=== PATIENT | female | born 1980 | race Caucasian/White ===

== ENCOUNTER 2019-10-13 14:16 | Emergency (ER) | payer OTHER ==
--- NOTE | 2019-10-13 14:20 | ERPHSYRPT ---
- History of Present Illness Time Seen by Provider: 10/13/19 14:20 Source: patient, police Exam Limitations: no limitations Physician History: This is a 39-year-old white female who presents to the emergency department by police department after patient took somewhere between 5 and 10 effects or medications. They were medications of her significant other. Patient was attempting suicide because she is had enough of arguing with her significant other. However upon arrival here she said that she just wants to get away from it all. Patient does consume marijuana nearly on a daily basis. She denies alcohol and other types of medication at this time. Patient states that she has not tried to kill herself in the past. Patient took this medication approximately half hour prior to her arrival here. States she is not homicidal. 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 related to: spouse, significant other Suicidal thoughts: attempt, ingestion Associated Symptoms: depressed, frustrated, ingestion Previous symptoms: no prior history Allergies/Adverse Reactions: No Known Drug Allergies Allergy (Verified 10/13/19 14:29) Home Medications: Venlafaxine HCl 37.5 mg [Effexor 37.5 mg] 1 tab PO DAILY 10/13/19 [History ] Hx Tetanus, Diphtheria Vaccination/Date Given: No Hx Influenza Vaccination/Date Given: Yes Hx Pneumococcal Vaccination/Date Given: No Travel Risk - International Travel Have you traveled outside of the country in past 3 weeks: No Have you or anyone close to you been diagnosed with or: No Do your reside in a community with a known COVID-19 case?: Yes If Yes where:: [place] - Coronavirus Screening Has patient experienced Coronavirus symptoms: No - Past Medical History Pertinent Past Medical History: Yes Neurological History: No Pertinent History ENT History: No Pertinent History Cardiac History: No Pertinent History Respiratory History: No Pertinent History Endocrine Medical History: No Pertinent History Musculoskeletal History: No Pertinent History GI Medical History: No Pertinent History History: No Pertinent History Psycho-Social History: Anxiety, Depression Female Reproductive Disorders: No Pertinent History Other Medical History: gestational diabetes, anemia - Past Surgical History Past Surgical History: Yes Neuro Surgical History: No Pertinent History Cardiac: No Pertinent History Respiratory: No Pertinent History Gastrointestinal: Appendectomy Genitourinary: No Pertinent History Musculoskeletal: No Pertinent History Female Surgical History: No Pertinent History - Social History Smoking Status: Current every day smoker How long have you smoked: 7year Exposure to second hand smoke: No Drug Use: none Patient Lives Alone: No - Review of Systems Constitutional: No Symptoms Eyes: No Symptoms Ears, Nose, & Throat: No Symptoms Respiratory: No Symptoms Cardiac: No Symptoms Abdominal/Gastrointestinal: No Symptoms Genitourinary Symptoms: No Symptoms Musculoskeletal: No Symptoms Skin: No Symptoms Neurological: No Symptoms Psychological: Anxiety, Depression, Suicidal Ideations Endocrine: No Symptoms Hematologic/Lymphatic: No Symptoms Immunological/Allergic: No Symptoms All Other Systems: Reviewed and Negative - Nursing Vital Signs Nursing Vital Signs: Initial Vital Signs Pulse Rate 112 H 10/13/19 14:30 Respiratory Rate 18 10/13/19 14:30 Blood Pressure 135/89 10/13/19 14:30 O2 Sat by Pulse Oximetry 99 10/13/19 14:30 Pain Scale Pain Intensity 0 - Physical Exam General Appearance: mild distress, alert, anxiety Eyes, Ears, Nose, Throat Exam: normal ENT inspection, moist mucous membranes Neck Exam: normal inspection, non-tender, supple, full range of motion Respiratory Exam: normal breath sounds, lungs clear, airway intact, No chest tenderness, No respiratory distress Cardiovascular Exam: tachycardia Gastrointestinal/Abdominal Exam: soft, normal bowel sounds, No tenderness, No guarding Extremities Exam: normal inspection, normal range of motion, evidence of injury Current Suicidality: denies suicide plan 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, 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, oriented x 3, anxious Appearance: appropriate appearance, appropriate insight Behavior/Eye Contact/Speech: alert & cooperative, good eye contact Thoughts/Hallucinations: normal thought pattern, no apparent hallucination Skin Exam: normal color, warm, dry SpO2 Interpretation: normal O2 Delivery: Room Air - Course Nursing assessment & vital signs reviewed: Yes EKG Interpreted by Me: RATE (99), Sinus Rhythm, NORMAL AXIS, NORMAL INTERVALS, NORMAL QRS, Other (No comparison EKG) Ordered Tests: Active Orders 24 hr Category Date Time Status Clean Catch Urine Specimen STAT Care 10/13/19 14:37 Active EKG-ER Only STAT Care 10/13/19 14:37 Active Pulse Oximetry (ED) STAT Care 10/13/19 14:37 Active Psychiatric Consult STAT Cons 10/13/19 14:37 Active Tele-Health Consult ROUTINE Cons 10/13/19 14:37 Active ACETAMINOPHEN Stat Lab 10/13/19 14:50 Completed CBC W DIFF Stat Lab 10/13/19 14:50 Completed CMP Stat Lab 10/13/19 14:50 Completed ETHYL ALCOHOL Stat Lab 10/13/19 14:50 Completed HCG,QUALITATIVE URINE Stat Lab 10/13/19 15:00 Completed SALICYLATE Stat Lab 10/13/19 14:50 Completed UA W/RFX UR CULTURE Stat Lab 10/13/19 15:00 Completed Urine Triage Profile Stat Lab 10/13/19 15:00 Completed Medication Summary Discontinued Medications Generic Name Dose Route Start Last Admin Trade Name Kaydenq PRN Reason Stop Dose Admin Ondansetron HCl 4 mg 10/13/19 14:36 10/13/19 15:10 Zofran Odt 4 Mg PO 10/13/19 14:37 4 mg STAT ONE Administration Ondansetron HCl Confirm 10/13/19 15:04 Zofran Odt 4 Mg Administered 10/13/19 15:05 Dose 4 mg .ROUTE .STPivotstream-MED ONE Lab/Rad Data: Laboratory Result Diagrams 10/13/19 14:50 10/13/19 14:50 Laboratory Results 10/13/19 10/13/19 10/13/19 Range/Units 15:00 15:00 15:00 WBC (4.0-10.5) K/mm3 RBC (4.1-5.4) M/mm3 Hgb (12.0-16.0) gm/dl Hct (35-47) % MCV (78-100) fl MCH (26-32) pg MCHC (32-36) g/dl RDW (11.5-14.0) % Plt Count (150-450) K/mm3 MPV (7.5-11.0) fl Gran % (36.0-66.0) % Eos # (Auto) (0-0.5) Absolute Lymphs (auto) (1.0-4.6) Absolute Monos (auto) (0.0-1.3) Lymphocytes % (24.0-44.0) % Monocytes % (0.0-12.0) % Eosinophils % (0.00-5.0) % Basophils % (0.0-0.4) % Absolute Granulocytes (1.4-6.9) Basophils # (0-0.4) Sodium (137-145) mmol/L Potassium (3.5-5.1) mmol/L Chloride (98-107) mmol/L Carbon Dioxide (22-30) mmol/L Anion Gap (5-15) MEQ/L BUN (7-17) mg/dL Creatinine (0.52-1.04) mg/dL Estimated GFR ML/MIN Glucose (74-106) mg/dL Calcium (8.4-10.2) mg/dL Total Bilirubin (0.2-1.3) mg/dL AST (14-36) U/L ALT (0-35) U/L Alkaline Phosphatase (38-126) U/L Serum Total Protein (6.3-8.2) g/dL Albumin (3.5-5.0) g/dL Urine Color YELLOW (YELLOW) Urine Appearance SLIGHTLY CLOUDY (CLEAR) Urine pH 6.0 (5-6) Ur Specific [place] 1.024 (1.005-1.025) Urine Protein 30 (Negative) Urine Ketones NEGATIVE (NEGATIVE) Urine Blood NEGATIVE (0-5) Que/ul Urine Nitrite NEGATIVE (NEGATIVE) Urine Bilirubin NEGATIVE (NEGATIVE) Urine Urobilinogen NEGATIVE (0-1) mg/dL Ur Leukocyte Esterase NEGATIVE (NEGATIVE) Urine WBC (Auto) 0-2 (0-5) /HPF Urine RBC (Auto) NONE (0-2) /HPF U Epithel Cells (Auto) RARE (FEW) /HPF Urine Bacteria (Auto) NONE (NEGATIVE) /HPF Urine Mucus (Auto) MODERATE (NEGATIVE) /HPF Urine Culture Reflexed NO (NO) Urine Glucose NEGATIVE (NEGATIVE) mg/dL Urine HCG, Qual NEGATIVE (Negative) Salicylates (2-20) mg/dL Urine Opiates Level NEGATIVE (NEGATIVE) Ur Methadone NEGATIVE (NEGATIVE) Acetaminophen (10-30) ug/ml Urine Barbiturates NEGATIVE (NEGATIVE) Ur Phencyclidine (PCP) NEGATIVE (NEGATIVE) Urine Amphetamine POSITIVE (NEGATIVE) U Benzodiazepine Level POSITIVE (NEGATIVE) Urine Cocaine NEGATIVE (NEGATIVE) Urine Marijuana (THC) POSITIVE (NEGATIVE) Ethyl Alcohol (0-10) mg/dL 10/13/19 10/13/19 Range/Units 14:50 14:50 WBC 8.6 (4.0-10.5) K/mm3 RBC 3.55 L (4.1-5.4) M/mm3 Hgb 11.6 L (12.0-16.0) gm/dl Hct 34.8 L (35-47) % MCV 98.0 (78-100) fl MCH 32.7 H (26-32) pg MCHC 33.3 (32-36) g/dl RDW 12.6 (11.5-14.0) % Plt Count 394 (150-450) K/mm3 MPV 9.0 (7.5-11.0) fl Gran % 65.7 (36.0-66.0) % Eos # (Auto) 0.05 (0-0.5) Absolute Lymphs (auto) 2.07 (1.0-4.6) Absolute Monos (auto) 0.75 (0.0-1.3) Lymphocytes % 24.2 (24.0-44.0) % Monocytes % 8.8 (0.0-12.0) % Eosinophils % 0.6 (0.00-5.0) % Basophils % 0.7 (0.0-0.4) % Absolute Granulocytes 5.64 (1.4-6.9) Basophils # 0.06 (0-0.4) Sodium 141 (137-145) mmol/L Potassium 3.6 (3.5-5.1) mmol/L Chloride 109 H (98-107) mmol/L Carbon Dioxide 25 (22-30) mmol/L Anion Gap 10.0 (5-15) MEQ/L BUN 16 (7-17) mg/dL Creatinine 0.62 (0.52-1.04) mg/dL Estimated GFR > 60.0 ML/MIN Glucose 95 (74-106) mg/dL Calcium 9.5 (8.4-10.2) mg/dL Total Bilirubin 0.70 (0.2-1.3) mg/dL AST 29 (14-36) U/L ALT 18 (0-35) U/L Alkaline Phosphatase 37 L (38-126) U/L Serum Total Protein 7.5 (6.3-8.2) g/dL Albumin 4.5 (3.5-5.0) g/dL Urine Color (YELLOW) Urine Appearance (CLEAR) Urine pH (5-6) Ur Specific [place] (1.005-1.025) Urine Protein (Negative) Urine Ketones (NEGATIVE) Urine Blood (0-5) Que/ul Urine Nitrite (NEGATIVE) Urine Bilirubin (NEGATIVE) Urine Urobilinogen (0-1) mg/dL Ur Leukocyte Esterase (NEGATIVE) Urine WBC (Auto) (0-5) /HPF Urine RBC (Auto) (0-2) /HPF U Epithel Cells (Auto) (FEW) /HPF Urine Bacteria (Auto) (NEGATIVE) /HPF Urine Mucus (Auto) (NEGATIVE) /HPF Urine Culture Reflexed (NO) Urine Glucose (NEGATIVE) mg/dL Urine HCG, Qual (Negative) Salicylates < 1.0 L (2-20) mg/dL Urine Opiates Level (NEGATIVE) Ur Methadone (NEGATIVE) Acetaminophen < 10 L (10-30) ug/ml Urine Barbiturates (NEGATIVE) Ur Phencyclidine (PCP) (NEGATIVE) Urine Amphetamine (NEGATIVE) U Benzodiazepine Level (NEGATIVE) Urine Cocaine (NEGATIVE) Urine Marijuana (THC) (NEGATIVE) Ethyl Alcohol < 10 (0-10) mg/dL - Progress Progress: unchanged Progress Note: 10/13/19 15:25 we Did call the poison control center. We are following their recommendations. Patient needs to be observed for at least 8 hours from the time of her ingestion. The patient is being monitored. We will be consulting an inpatient psychiatric facility for further recommendations. 10/13/19 15:43 10/13/19 19:07 This pt was eval by [facility]. they accept her with the stipulation of emergency halfway. pt will be observed here until 10pm. [facility] 10/13/19 22:08 Have observed the patient for 8 hours from the time of ingestion. She has been hemodynamically stable and neurologically intact throughout her stay. She has been psychologically appropriate. Counseled pt/family regarding: lab results, diagnosis, need for follow-up, rad results - Departure Departure Disposition: Transfer Clinical Impression: Suicide attempt Condition: Stable Critical Care Time: No Referrals: TAVARES LYNN [Primary Care Provider] -
[2019-10-13] MEDS ORDERED: ZOFRAN ODT 4 MG PO ONE (14:36)
[2019-10-13] MEDS ORDERED: ZOFRAN ODT 4 MG ONE (15:04)
[2019-10-13 15:07] LABS: Absolute Neutrophil Ct (ANC) 5.64 (1.4-6.9); BASOPHIL % 0.7 % (0.0-0.4); Basophil (Absolute #) 0.06 (0-0.4); Eosinophil % 0.6 % (0.00-5.0); Eosinophil (Absolute #) 0.05 (0-0.5); Hematocrit 34.8 % (35-47); Hemoglobin 11.6 gm/dl (12.0-16.0); Lymphocyte (Absolute #) 2.07 (1.0-4.6); Lymphocytes % 24.2 % (24.0-44.0); Mean Corpuscular Hemoglobin 32.7 pg (26-32); Mean Corpuscular Hgb Concent. 33.3 g/dl (32-36); Monocyte (Absolute #) 0.75 (0.0-1.3); Monocytes % 8.8 % (0.0-12.0); Neutrophil % 65.7 % (36.0-66.0); Platelet Count 394 K/mm3 (150-450); Red Blood Count 3.55 M/mm3 (4.1-5.4); Red Cell Distribution Width 12.6 % (11.5-14.0); White Blood Count 8.6 K/mm3 (4.0-10.5)
[2019-10-13 15:17] LABS: Appearance SLIGHTLY CLOUDY (CLEAR); Bilirubin NEGATIVE (NEGATIVE); Blood NEGATIVE Ery/ul (0-5); Epithelial Cells RARE /HPF (FEW); Glucose NEGATIVE (NEGATIVE); Ketones NEGATIVE (NEGATIVE); Leukocyte Esterase NEGATIVE (NEGATIVE); Mucus MODERATE /HPF (NEGATIVE); Nitrite NEGATIVE (NEGATIVE); Protein,Urine Dip 30 (Negative); Specific Gravity 1.024 (1.005-1.025); Urobilinogen NEGATIVE mg/dL (0-1); WBC 0-2 /HPF (0-5)
[2019-10-13 15:20] LABS: ALBUMIN 4.5 g/dL (3.5-5.0); ALKALINE PHOSPHATASE 37 U/L (38-126); BLOOD UREA NITROGEN 16 mg/dL (7-17); CHLORIDE 109 mmol/L (98-107); Calcium 9.5 mg/dL (8.4-10.2); Carbon Dioxide 25 mmol/L (22-30); Creatinine 1 0.62 mg/dL (0.52-1.04); Glucose 95 mg/dL (74-106); Potassium 3.6 mmol/L (3.5-5.1); SGOT/AST 29 U/L (14-36); SGPT/ALT 18 U/L (0-35); SODIUM 141 mmol/L (137-145); Total Protein 7.5 g/dL (6.3-8.2)
[2019-10-13 15:21] LABS: ACETAMINOPHEN < 10 ug/ml (10-30); ETHYL ALCOHOL < 10 mg/dL (0-10); SALICYLATE < 1.0 mg/dL (2-20)
[2019-10-13 15:29] LABS: Barbiturate,Urine NEGATIVE (NEGATIVE); Benzodiazepine,Urine POSITIVE (NEGATIVE); Cocaine,Urine NEGATIVE (NEGATIVE); Methadone,Urine NEGATIVE (NEGATIVE); Opiate,Urine NEGATIVE (NEGATIVE); PCP,Urine NEGATIVE (NEGATIVE); THC,Urine POSITIVE (NEGATIVE)
[2019-10-13 16:11] LABS: Amphetamine,Urine POSITIVE (NEGATIVE)
[2019-10-13 22:18] VITALS: BP 146/85; PULSE 91; O2SAT 98
== END 2019-10-13 22:37 ==
LOC: ED 14:16
DX: T50.992A Poisoning by other drugs, medicaments and biological substances, intentional self-harm, initial encounter (principal); F41.9 Anxiety disorder, unspecified; F32.9 Major depressive disorder, single episode, unspecified
CPT/HCPCS: 36415; 80053; 80307; 81001; 84703; 85025; 90791; 93005; 94760; 99285; G0480; G0481; Q3014; Q0162

== ENCOUNTER 2019-10-24 21:44 | Emergency (ER) | payer OTHER ==
[2019-10-24] MEDS ORDERED: Adacel Vial IM ONE ×2 (22:17→22:25)
[2019-10-24] MEDS ORDERED: BACIGUENT PACKET TP ONE (22:55)
[2019-10-24] MEDS ORDERED: BACIGUENT PACKET ONE (22:55)
[2019-10-24 23:03] VITALS: BP 113/70; PULSE 72; O2SAT 99
--- NOTE | 2019-10-24 23:36 | ERPHSYRPT ---
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 bleeding was controlled on arrival to ED, once rag removed, lac began to bleed again. pressure applied. denies pain resting, but pain to index finger and thumb with movement. cap refil < 3 sec, no loss sensation, pain with ROM. A&Ox3. ambulatory to room. Physician History: pt cut right hand on broken potery and could not get bleeding stopped. no other reported injuries and does not feel any FB in her wound or believe any remains. unable to fully extend right index since the accident and is also painful passive ext of this digit. Timing/Duration: today Quality: painful Severity: moderate Location: hands Possible Causes: other (lac) Associated Symptoms: denies symptoms Allergies/Adverse Reactions: No Known Drug Allergies Allergy (Verified 10/13/19 14:29) Home Medications: Venlafaxine HCl 37.5 mg [Effexor 37.5 mg] 1 tab PO DAILY 10/13/19 [History ] Hx Tetanus, Diphtheria Vaccination/Date Given: No Hx Influenza Vaccination/Date Given: No Hx Pneumococcal Vaccination/Date Given: No Travel Risk - International Travel Have you traveled outside of the country in past 3 weeks: No Have you or anyone close to you been diagnosed with or: No Do your reside in a community with a known COVID-19 case?: Yes If Yes where:: [place] - Coronavirus Screening Has patient experienced Coronavirus symptoms: No - Review of Systems Constitutional: No Fever, No Chills Eyes: No Symptoms Ears, Nose, & Throat: No Symptoms Respiratory: No Cough, No Dyspnea Cardiac: No Chest Pain, No Edema, No Syncope Abdominal/Gastrointestinal: No Abdominal Pain, No Nausea, No Vomiting, No Diarrhea Genitourinary Symptoms: No Dysuria Musculoskeletal: No Back Pain, No Neck Pain Skin: Other (lac right palm), No Rash Neurological: No Dizziness, No Focal Weakness, No Sensory Changes Psychological: No Symptoms Endocrine: No Symptoms Hematologic/Lymphatic: No Symptoms Immunological/Allergic: No Symptoms All Other Systems: Reviewed and Negative - Past Medical History Pertinent Past Medical History: Yes Neurological History: No Pertinent History ENT History: No Pertinent History Cardiac History: No Pertinent History Respiratory History: No Pertinent History Endocrine Medical History: No Pertinent History Musculoskeletal History: No Pertinent History GI Medical History: No Pertinent History History: No Pertinent History Psycho-Social History: Anxiety, Depression Female Reproductive Disorders: No Pertinent History Other Medical History: gestational diabetes, anemia - Past Surgical History Past Surgical History: Yes Neuro Surgical History: No Pertinent History Cardiac: No Pertinent History Respiratory: No Pertinent History Gastrointestinal: Appendectomy, Cholecystectomy Genitourinary: No Pertinent History Musculoskeletal: No Pertinent History Female Surgical History: No Pertinent History - Social History Smoking Status: Current every day smoker How long have you smoked: 7year Exposure to second hand smoke: No Drug Use: marijuana Patient Lives Alone: No - Female History Hx Now: No - Nursing Vital Signs Nursing Vital Signs: Initial Vital Signs Temperature 98.0 F 10/24/19 22:01 Pulse Rate 86 10/24/19 22:01 Respiratory Rate 20 10/24/19 22:01 Blood Pressure 125/80 10/24/19 22:01 O2 Sat by Pulse Oximetry 100 10/24/19 22:01 Pain Scale Pain Intensity 5 - Physical Exam General Appearance: no apparent distress, alert Eye Exam: PERRL/EOMI, eyes nml inspection Ears, Nose, Throat Exam: normal ENT inspection, pharynx normal, moist mucous membranes Neck Exam: normal inspection, non-tender, supple, full range of motion Respiratory Exam: normal breath sounds, lungs clear, No respiratory distress Cardiovascular Exam: regular rate/rhythm, normal heart sounds Gastrointestinal/Abdomen Exam: soft, mass, No tenderness Pelvic Exam: deferred Rectal Exam: deferred Back Exam: normal inspection, normal range of motion, No CVA tenderness, No vertebral tenderness Extremity Exam: normal inspection, normal range of motion, lacerations (right palm), limited range of motion Neurologic Exam: alert, oriented x 3, cooperative, normal mood/affect, sensation nml, No motor deficits Skin Exam: normal color, warm, dry SpO2: 99 Procedures - Laceration/Wound Repair Right Hand Wound Location: Right, hand Wound Length (cm): 3 Wound's Depth, Shape: into muscle, irregular Wound Explored: no foreign body noted Irrigated: Yes Hibiclens Prep: Yes Anesthesia: local, 1% Lidocaine Volume Anesthetic (ccs): 3 Wound Debrided: moderate Wound Repaired With: sutures Suture Size/Type: 3-0, nylon Layer Closure?: No Sterile Dressing Applied?: Yes Splint Applied?: No Sling Applied?: No Ordered Tests: Active Orders 24 hr Category Date Time Status Isolation, Initiate & Maintain Q12H Care 10/24/19 22:12 Active Sutures STAT Care 10/24/19 22:17 Active Wound Care STAT Care 10/24/19 22:45 Active HAND (MINIMUM 3 VIEWS) Stat Exams 10/24/19 22:54 Taken Medication Summary Discontinued Medications Generic Name Dose Route Start Last Admin Trade Name Siomara PRN Reason Stop Dose Admin Bacitracin Zinc 0.9 gm 10/24/19 22:55 10/24/19 22:55 Baciguent Packet TP 10/24/19 22:56 0.9 gm STAT ONE Administration Bacitracin Zinc Confirm 10/24/19 22:55 Baciguent Packet Administered 10/24/19 22:56 Dose 1 gm .ROUTE .STK-MED ONE Diphtheria/Tetanus/Acell Pertussis 0.5 ml 10/24/19 22:17 10/24/19 22:27 Adacel Vial IM 10/24/19 22:18 0.5 ml .ONCE ONE Administration Diphtheria/Tetanus/Acell Pertussis Confirm 10/24/19 22:25 Adacel Vial Administered 10/24/19 22:26 Dose 0.5 ml IM .STK-MED ONE - Progress Progress: improved, re-examined Progress Note: 10/24/19 23:37 pt was advised that tendon injury was likely of wilder index flexor tendon due to trouble straightening this and therefore need to see hand surgeon. also she is advised that an undetected FB could still exist and require removal Counseled pt/family regarding: diagnosis, need for follow-up, rad results - Departure Departure Disposition: Home Clinical Impression: Laceration of right hand involving tendon Condition: Good Critical Care Time: No Referrals: TORITO CARDENAS [Primary Care Provider] - Instructions: Wound Care (DC), Laceration Repair With Stitches (DC) Additional Instructions: it is very important to followup with a hand surgeon since there is very likely an injury to a tendon moving your finger; there could also be a remaining peice of the broken material even though we did not detect any on x-ray or exam - but might be found in surgical exploration if that is indicated especially for the tendon injury. return meantime if any concerns. Prescriptions: Cephalexin Mh 500 mg [Keflex 500 mg] 500 mg PO TID 5 Days #15 capsule Mupirocin [Bactroban OINTMENT] 22 gm TP BID #1 tube
--- NOTE | 2019-10-25 08:07 | XRAY ---
Indication: Laceration. Comparison: None 3 view right hand demonstrates old 5th metacarpal fracture. No other bony, articular, or soft tissue abnormalities.
== END 2019-10-24 23:59 | disposition home or self-care (01) ==
LOC: ED 21:44
DX: S61.411A Laceration without foreign body of right hand, initial encounter (principal); W26.8XXA Contact with other sharp object(s), not elsewhere classified, initial encounter; Y93.89 Activity, other specified; Y92.89 Other specified places as the place of occurrence of the external cause; F41.9 Anxiety disorder, unspecified; F32.9 Major depressive disorder, single episode, unspecified
CPT/HCPCS: 12002; 73130; 90471; 90715; 99284; A9270-GY

== ENCOUNTER 2020-01-18 19:27 | Emergency (ER) | payer OTHER ==
--- NOTE | 2020-01-18 19:46 | ERPHSYRPT ---
- History of Present Illness Time Seen by Provider: 01/18/20 19:40 Source: patient Exam Limitations: no limitations Physician History: Patient is a 39-year-old female. Patient states that she went to her friend's house to visit. There house dog ran up to our patient and bit her on her left forearm. Incident occurred just prior to arrival. No other injuries reported. Patient does not know the vaccination status of the dog. Patient states that she left the household immediately after she was bitten. Patient made a police report. Pain described as an ache that is well localized. No radiation. Patient denies foreign body sensation on left forearm. No associated numbness tingling or weakness. Tetanus is not up-to-date. Patient states she is otherwise healthy. She voices no other complaints at this time. Timing/Duration: today Severity: moderate Modifying Factors: Improves With: nothing Associated Symptoms: denies symptoms, No nausea, No vomiting, No abdominal pain, No shortness of breath, No heartburn, No diaphoresis, No cough, No chills, No chest pain, No headaches Allergies/Adverse Reactions: No Known Drug Allergies Allergy (Verified 01/18/20 19:48) Home Medications: Venlafaxine HCl 37.5 mg [Effexor 37.5 mg] 1 tab PO DAILY 10/13/19 [History] Hx Tetanus, Diphtheria Vaccination/Date Given: No Hx Influenza Vaccination/Date Given: No Hx Pneumococcal Vaccination/Date Given: No - Review of Systems Constitutional: No Symptoms, No Fever, No Chills Eyes: No Symptoms Ears, Nose, & Throat: No Symptoms Respiratory: No Symptoms, No Cough, No Dyspnea Cardiac: No Symptoms, No Chest Pain, No Edema, No Syncope Abdominal/Gastrointestinal: No Symptoms, No Abdominal Pain, No Nausea, No Vomiting, No Diarrhea Genitourinary Symptoms: No Symptoms, No Dysuria Musculoskeletal: No Symptoms, No Back Pain, No Neck Pain Skin: No Symptoms, No Rash Neurological: No Symptoms, No Dizziness, No Focal Weakness, No Sensory Changes Psychological: No Symptoms Endocrine: No Symptoms Hematologic/Lymphatic: No Symptoms Immunological/Allergic: No Symptoms All Other Systems: Reviewed and Negative - Past Medical History Pertinent Past Medical History: Yes Neurological History: No Pertinent History ENT History: No Pertinent History Cardiac History: No Pertinent History Respiratory History: No Pertinent History Endocrine Medical History: No Pertinent History Musculoskeletal History: No Pertinent History GI Medical History: No Pertinent History History: No Pertinent History Psycho-Social History: Anxiety, Depression Female Reproductive Disorders: No Pertinent History Other Medical History: gestational diabetes, anemia - Past Surgical History Past Surgical History: Yes Neuro Surgical History: No Pertinent History Cardiac: No Pertinent History Respiratory: No Pertinent History Gastrointestinal: Appendectomy, Cholecystectomy Genitourinary: No Pertinent History Musculoskeletal: No Pertinent History Female Surgical History: No Pertinent History - Social History Smoking Status: Current every day smoker How long have you smoked: 7year Exposure to second hand smoke: No Drug Use: marijuana Patient Lives Alone: No - Nursing Vital Signs Nursing Vital Signs: Initial Vital Signs Temperature 99.2 F 01/18/20 19:35 Pulse Rate 83 01/18/20 19:35 Respiratory Rate 18 01/18/20 19:35 Blood Pressure 138/91 01/18/20 19:35 O2 Sat by Pulse Oximetry 97 01/18/20 19:35 Pain Scale Pain Intensity 5 - Physical Exam General Appearance: no apparent distress, alert Eye Exam: PERRL/EOMI, eyes nml inspection Ears, Nose, Throat Exam: normal ENT inspection, TMs normal, pharynx normal, moist mucous membranes Neck Exam: normal inspection, non-tender, supple, full range of motion Respiratory Exam: normal breath sounds, lungs clear, No respiratory distress Cardiovascular Exam: regular rate/rhythm, normal heart sounds, normal peripheral pulses Gastrointestinal/Abdomen Exam: soft, normal bowel sounds, No tenderness, No mass Back Exam: normal inspection, normal range of motion, No CVA tenderness, No vertebral tenderness Extremity Exam: normal inspection, normal range of motion, pelvis stable, other (Puncture wound to the volar aspect of the left forearm. Compartments are soft. Cap refill less than 2 seconds. No bleeding. Radial pulse palpable. The involved left upper extremity is neurovascular intact distally.) Neurologic Exam: alert, oriented x 3, cooperative, normal mood/affect, nml cerebellar function, nml station & gait, sensation nml, No motor deficits Skin Exam: normal color, warm, dry, No rash Lymphatic Exam: No adenopathy SpO2 Interpretation: normal SpO2: 97 O2 Delivery: Room Air - Course Nursing assessment & vital signs reviewed: Yes Ordered Tests: Medication Summary Generic Name Dose Route Start Last Admin Trade Name Freq PRN Reason Stop Dose Admin Acetaminophen 975 mg 01/18/20 19:48 Tylenol 325 Mg PO 01/18/20 19:49 STAT STA Discontinued Medications Generic Name Dose Route Start Last Admin Trade Name Siomara PRN Reason Stop Dose Admin Diphtheria/Tetanus/Acell Pertussis 0.5 ml 01/18/20 19:47 Adacel Vial IM 01/18/20 19:48 .ONCE ONE - Progress Progress: improved Progress Note: 01/18/20 19:55 Patient reassessed. She is well. Bite wound is superficial appearing. No bleeding. Compartments are soft. Cap refill less than 2 seconds. Involved upper extremity is neurovascular intact distally. Patient currently on antibiotics. No indication for additional antibiotics at this time. We will update patient's tetanus. No indication for imaging studies. Dressing applied to the involved area. Patient agrees to follow-up with her primary care doctor within 48 hours for reevaluation. Counseled pt/family regarding: diagnosis, need for follow-up - Departure Departure Disposition: Home Clinical Impression: Dog bite Condition: Stable Critical Care Time: No Referrals: TORITO CARDENAS [Primary Care Provider] - Additional Instructions: Discharge/Care Plan PABLITO DEXTER AMANDA was seen on 01/18/20 in the Emergency Room. The patient was counseled regarding Diagnosis,Lab results, Imaging studies, need for follow up and when to return to the Emergency Room. Prescriptions given: Discharge Note I have spoken with the patient and/or caregivers. I have explained the patient's condition, diagnosis and treatment plan based on the information available to me at this time. I have answered the patient's and/or caregiver's questions and addressed any concerns. The patient and/or caregivers have as good understanding of the patient's diagnosis, condition and treatment plan as can be expected at this point. The vital signs have been stable. The patient's condition is stable and appropriate for discharge from the emergency department. The patient will pursue further outpatient evaluation with the primary care physician or other designated or consulting physician as outlined in the discharge instructions. The patient and/or caregivers are agreeable to this plan of care and follow-up instructions have been explained in detail. The patient and/or caregivers have received these instruction. The patient/and or caregivers are aware that any significant change in condition or worsening of symptoms s hould prompt an immediate return to this or the closest emergency department or call 911.
[2020-01-18] MEDS ORDERED: Adacel Vial IM ONE ×2 (19:47→19:57)
[2020-01-18] MEDS ORDERED: TYLENOL 325 MG PO STA (19:48)
[2020-01-18] MEDS ORDERED: TYLENOL 325 MG ONE (19:56)
[2020-01-18 20:12] VITALS: BP 128/73; PULSE 82; O2SAT 98
== END 2020-01-18 20:14 | disposition home or self-care (01) ==
LOC: ED 19:27
DX: S51.852A Open bite of left forearm, initial encounter (principal)
CPT/HCPCS: 90471; 90715; 99283; A9270-GY

== ENCOUNTER 2020-11-10 23:32 | Emergency (ER) | payer OTHER ==
[2020-11-10 23:50] VITALS: BP 127/68; PULSE 97; O2SAT 98
--- NOTE | 2020-11-11 00:19 | ERPHSYRPT ---
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 There was bleeding initially but stopped with applying pressure. She is up-to-date with tetanus. Patient reports through and through laceration. No dental injury. Complaining of dull aching mild pain. Patient reports 3-4 beers earlier. No injury anywhere else. Timing/Duration: hour(s) (0.5), sudden Quality: painful Severity: mild Location: face Possible Causes: other Associated Symptoms: swelling/mass/lumps Allergies/Adverse Reactions: No Known Drug Allergies Allergy (Verified 01/18/20 19:48) Hx Tetanus, Diphtheria Vaccination/Date Given: Yes (2019) Hx Influenza Vaccination/Date Given: No Hx Pneumococcal Vaccination/Date Given: No Travel Risk - International Travel Have you traveled outside of the country in past 3 weeks: No - Coronavirus Screening Are you exhibiting any of the following symptoms?: No Close contact with a COVID-19 positive Pt in past 14-21 Days: No - Vaccine Status Have you recieved a Covid-19 vaccination: No - Review of Systems Constitutional: No Symptoms Eyes: No Symptoms Ears, Nose, & Throat: Mouth Pain, Mouth Swelling Respiratory: No Symptoms Cardiac: No Symptoms Abdominal/Gastrointestinal: No Symptoms Genitourinary Symptoms: No Symptoms Musculoskeletal: No Symptoms Skin: Skin Lesions Neurological: No Symptoms Psychological: Anxiety Endocrine: No Symptoms Hematologic/Lymphatic: No Symptoms - Past Medical History Pertinent Past Medical History: Yes Neurological History: No Pertinent History ENT History: No Pertinent History Cardiac History: No Pertinent History Respiratory History: No Pertinent History Endocrine Medical History: No Pertinent History Musculoskeletal History: No Pertinent History GI Medical History: No Pertinent History History: No Pertinent History Psycho-Social History: Anxiety, Depression Female Reproductive Disorders: No Pertinent History Other Medical History: gestational diabetes, anemia - Past Surgical History Past Surgical History: Yes Neuro Surgical History: No Pertinent History Cardiac: No Pertinent History Respiratory: No Pertinent History Gastrointestinal: Appendectomy, Cholecystectomy Genitourinary: No Pertinent History Musculoskeletal: No Pertinent History Female Surgical History: No Pertinent History - Social History Smoking Status: Current every day smoker How long have you smoked: 7year Exposure to second hand smoke: No Drug Use: marijuana Patient Lives Alone: No - Female History Hx Last Menstrual Period: 10/24/20 Hx Now: No - Nursing Vital Signs Nursing Vital Signs: Initial Vital Signs Temperature 98.2 F 11/10/20 23:40 Pulse Rate 97 H 11/10/20 23:40 Respiratory Rate 18 11/10/20 23:40 Blood Pressure 127/68 11/10/20 23:40 O2 Sat by Pulse Oximetry 98 11/10/20 23:40 Pain Scale Pain Intensity 2 - Physical Exam General Appearance: no apparent distress, alert Eye Exam: PERRL/EOMI, eyes nml inspection Ears, Nose, Throat Exam: other (1.0cm cupid area laceration thru and the . no active bleeding) Neck Exam: normal inspection, non-tender, supple, full range of motion Respiratory Exam: normal breath sounds, lungs clear Cardiovascular Exam: regular rate/rhythm, normal heart sounds Extremity Exam: normal inspection, normal range of motion Neurologic Exam: alert, oriented x 3, cooperative Skin Exam: normal color, laceration SpO2 Interpretation: normal SpO2: 98 O2 Delivery: Room Air Procedures - Laceration/Wound Repair Upper Lip Time of Procedure: 00:19 Wound Location: face Wound Length (cm): 1 Wound's Depth, Shape: into muscle Wound Explored: clean Irrigated: Yes Hibiclens Prep: Yes Wound Repaired With: Steri-strips, Dermabond - Progress Progress: improved Progress Note: 11/11/20 00:19 She has a through and through laceration in the cupid area just below philtrum. Curved shaped laceration. Recommended lidocaine and suturing but patient does not want to have suturing done as she is scared of needles and wanted to have Steri-Strips/glue. Discussed with patient about better outcome with suture but she still wants to go for glue/Steri-Strips. Her partner who did not drink alcohol, discussed with her as well and she also agreed with doing Steri-Strip glue. Laceration is repaired. Given Augmentin. Follow-up with primary care. Discussed signs symptoms of worsening needing return to ER which do seem understanding. Counseled pt/family regarding: diagnosis, need for follow-up - Departure Departure Disposition: Home Clinical Impression: Lip laceration Qualifiers: Encounter type: initial encounter Qualified Code(s): S01.511A - Laceration without foreign body of lip, initial encounter Condition: Stable Critical Care Time: No Referrals: TORITO CARDENAS [Primary Care Provider] - Follow Up with PCP/3 days Instructions: Laceration Repair With Glue (DC) Additional Instructions: Do not soak in water for next 24 to 48 hours. Use straw to drink water. Take Tylenol/ibuprofen as needed for pain. Apply ice. Continue with antibiotics. Follow-up with primary care physician for reevaluation on Friday morning. Return to ER for increased swelling redness discharge/fever chills etc. Prescriptions: Amoxicillin/Potassium Clav [Augmentin 875-125 Tablet] 875 mg PO BID 7 Days #10 tablet
[2020-11-11] MEDS ORDERED: Augmentin 875-125 Tablet PO ONE (00:22)
[2020-11-11] MEDS ORDERED: Augmentin 875-125 Tablet ONE (00:26)
== END 2020-11-11 00:25 | disposition home or self-care (01) ==
LOC: ED 23:32
DX: S01.511A Laceration without foreign body of lip, initial encounter (principal); W25.XXXA Contact with sharp glass, initial encounter; Y93.89 Activity, other specified; Y92.89 Other specified places as the place of occurrence of the external cause
CPT/HCPCS: 12011; 99283; A9270-GY

== ENCOUNTER 2021-02-20 08:54 | Emergency (ER) | payer OTHER ==
--- NOTE | 2021-02-20 09:03 | ERPHSYRPT ---
- History of Present Illness Time Seen by Provider: 02/20/21 09:03 Source: patient Exam Limitations: no limitations Physician History: This is a 40-year-old white female who has a history of anxiety and depression as well as a history of illicit drug use and alcohol abuse. She has been court ordered to be in the [facility] which is a house for drug addiction recovery for women. The director is concerned because the patient is self harming herself and having thoughts of suicide. She has had this type of behavior since she was 8 years old. Most recently she self harmed herself by burning herself with curling irons or something that is hot while she is cooking. Patient currently denies headache. She denies chest pain. She denies shortness of breath. She denies abdominal pain. She feels that she is suicidal but not homicidal. Timing/Duration: worse, other (Chronic) Severity of Symptoms-Max: moderate Severity of Symptoms-Current: moderate Suicidal thoughts: other (She has suicidal thoughts but no specific plans at this time. She wants to get rid of the anger she has) Associated Symptoms: angry, agitated, depressed, frustrated, hostile, No hallucinating Previous symptoms: same symptoms as today, recently seen Allergies/Adverse Reactions: No Known Drug Allergies Allergy (Verified 02/20/21 09:07) Home Medications: Aripiprazole [Abilify] 1 tab PO BID 02/20/21 [History] Buspirone HCl [Buspar] 1 tab PO BID 02/20/21 [History] Nicotine 14 mg [Nicoderm Cq 14 mg] 1 patch TOP DAILY 02/20/21 [History] Hx Tetanus, Diphtheria Vaccination/Date Given: Yes (2019) Hx Influenza Vaccination/Date Given: No Hx Pneumococcal Vaccination/Date Given: No Travel Risk - International Travel Have you traveled outside of the country in past 3 weeks: No - Coronavirus Screening Are you exhibiting any of the following symptoms?: No Close contact with a COVID-19 positive Pt in past 14-21 Days: No - Vaccine Status Have you recieved a Covid-19 vaccination: No - Past Medical History Pertinent Past Medical History: Yes Neurological History: No Pertinent History ENT History: No Pertinent History Cardiac History: No Pertinent History Respiratory History: No Pertinent History Endocrine Medical History: No Pertinent History Musculoskeletal History: No Pertinent History GI Medical History: No Pertinent History History: No Pertinent History Psycho-Social History: Anxiety, Depression Female Reproductive Disorders: No Pertinent History Other Medical History: gestational diabetes, anemia - Past Surgical History Past Surgical History: Yes Neuro Surgical History: No Pertinent History Cardiac: No Pertinent History Respiratory: No Pertinent History Gastrointestinal: Appendectomy, Cholecystectomy Genitourinary: No Pertinent History Musculoskeletal: No Pertinent History Female Surgical History: No Pertinent History - Social History Smoking Status: Current every day smoker How long have you smoked: 7year Exposure to second hand smoke: No Drug Use: marijuana Patient Lives Alone: No - Review of Systems Constitutional: No Symptoms Eyes: No Symptoms Ears, Nose, & Throat: No Symptoms Respiratory: No Symptoms Cardiac: No Symptoms Abdominal/Gastrointestinal: No Symptoms Genitourinary Symptoms: No Symptoms Musculoskeletal: No Symptoms Skin: No Symptoms Neurological: No Symptoms Psychological: Alcohol Abuse, Drug Abuse, Anxiety, Depression, Suicidal Ideations Endocrine: No Symptoms Hematologic/Lymphatic: No Symptoms Immunological/Allergic: No Symptoms All Other Systems: Reviewed and Negative - Nursing Vital Signs Nursing Vital Signs: Initial Vital Signs Temperature 97.6 F 02/20/21 09:10 Pulse Rate 83 02/20/21 09:10 Respiratory Rate 18 02/20/21 09:10 Blood Pressure 122/80 02/20/21 09:10 O2 Sat by Pulse Oximetry 96 02/20/21 09:10 Pain Scale Pain Intensity 0 - Physical Exam General Appearance: no apparent distress, alert, anxiety Eyes, Ears, Nose, Throat Exam: normal ENT inspection, moist mucous membranes Neck Exam: normal inspection, non-tender, supple, full range of motion Respiratory Exam: normal breath sounds, lungs clear, airway intact, No chest tenderness, No respiratory distress Cardiovascular Exam: regular rate/rhythm, normal heart sounds, normal peripheral pulses Gastrointestinal/Abdominal Exam: soft, normal bowel sounds, No tenderness Extremities Exam: normal inspection, normal range of motion, No evidence of injury Current Suicidality: denies suicide plan 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, normal mood/affect, calm, chief digital officer II-XII nml as tested, oriented x 3, anxious, depressed affect Appearance: appropriate appearance, appropriate insight, no memory impairment Behavior/Eye Contact/Speech: alert & cooperative, good eye contact, normal speech Thoughts/Hallucinations: normal thought pattern, no apparent hallucination, No auditory hallucinations, No tactile hallucinations, No visual hallucinations Skin Exam: normal color, warm, dry SpO2 Interpretation: normal O2 Delivery: Room Air - Course Nursing assessment & vital signs reviewed: Yes Ordered Tests: Active Orders 24 hr Category Date Time Status Clean Catch Urine Specimen STAT Care 02/20/21 09:06 Active EKG-ER Only STAT Care 02/20/21 09:06 Active Psychiatric Consult STAT Cons 02/20/21 09:06 Active ACETAMINOPHEN Stat Lab 02/20/21 09:15 Completed CBC W DIFF Stat Lab 02/20/21 09:15 Completed CMP Stat Lab 02/20/21 09:15 Completed ETHYL ALCOHOL Stat Lab 02/20/21 09:15 Completed SALICYLATE Stat Lab 02/20/21 09:15 Completed UA W/RFX UR CULTURE Stat Lab 02/20/21 09:10 Completed Urine Triage Profile Stat Lab 02/20/21 09:10 Completed Lab/Rad Data: Laboratory Result Diagrams 02/20/21 09:15 02/20/21 09:15 Laboratory Results 02/20/21 02/20/21 02/20/21 Range/Units 15:55 09:15 09:15 WBC 7.4 (4.0-10.5) K/mm3 RBC 3.67 L (4.1-5.4) M/mm3 Hgb 11.5 L (12.0-16.0) gm/dl Hct 36.3 (35-47) % MCV 98.9 (78-100) fl MCH 31.3 (26-32) pg MCHC 31.7 L (32-36) g/dl RDW 12.6 (11.5-14.0) % Plt Count 371 (150-450) K/mm3 MPV 8.3 (7.5-11.0) fl Gran % 68.0 H (36.0-66.0) % Eos # (Auto) 0.08 (0-0.5) Absolute Lymphs (auto) 1.66 (1.0-4.6) Absolute Monos (auto) 0.54 (0.0-1.3) Lymphocytes % 22.6 L (24.0-44.0) % Monocytes % 7.3 (0.0-12.0) % Eosinophils % 1.1 (0.00-5.0) % Basophils % 1.0 (0.0-0.4) % Absolute Granulocytes 5.00 (1.4-6.9) Basophils # 0.07 (0-0.4) Sodium 139 (137-145) mmol/L Potassium 4.5 (3.5-5.1) mmol/L Chloride 103 (98-107) mmol/L Carbon Dioxide 29 (22-30) mmol/L Anion Gap 11.5 (5-15) MEQ/L BUN 15 (7-17) mg/dL Creatinine 0.76 (0.52-1.04) mg/dL Estimated GFR > 60.0 ML/MIN Glucose 89 (74-106) mg/dL Calcium 9.5 (8.4-10.2) mg/dL Total Bilirubin 0.50 (0.2-1.3) mg/dL AST 23 (14-36) U/L ALT 14 (0-35) U/L Alkaline Phosphatase 30 L (38-126) U/L Serum Total Protein 6.7 (6.3-8.2) g/dL Albumin 4.1 (3.5-5.0) g/dL Urine Color (YELLOW) Urine Appearance (CLEAR) Urine pH (5-6) Ur Specific Steen (1.005-1.025) Urine Protein (Negative) Urine Ketones (NEGATIVE) Urine Blood (0-5) Que/ul Urine Nitrite (NEGATIVE) Urine Bilirubin (NEGATIVE) Urine Urobilinogen (0-1) mg/dL Ur Leukocyte Esterase (NEGATIVE) Urine WBC (Auto) (0-5) /HPF Urine RBC (Auto) (0-2) /HPF U Epithel Cells (Auto) (FEW) /HPF Urine Bacteria (Auto) (NEGATIVE) /HPF Amorphous Crystals (NEGATIVE) /HPF Urine Culture Reflexed (NO) Urine Glucose (NEGATIVE) mg/dL Salicylates < 1.0 L (2-20) mg/dL Urine Opiates Level (NEGATIVE) Ur Methadone (NEGATIVE) Acetaminophen < 10 L (10-30) ug/ml Urine Barbiturates (NEGATIVE) Ur Phencyclidine (PCP) (NEGATIVE) Urine Amphetamine (NEGATIVE) U Benzodiazepine Level (NEGATIVE) Urine Cocaine (NEGATIVE) Urine Marijuana (THC) (NEGATIVE) Ethyl Alcohol < 10 (0-10) mg/dL SARS-CoV-2 Ag (Rapid) NEGATIVE (NEGATIVE) 02/20/21 02/20/21 Range/Units 09:10 09:10 WBC (4.0-10.5) K/mm3 RBC (4.1-5.4) M/mm3 Hgb (12.0-16.0) gm/dl Hct (35-47) % MCV (78-100) fl MCH (26-32) pg MCHC (32-36) g/dl RDW (11.5-14.0) % Plt Count (150-450) K/mm3 MPV (7.5-11.0) fl Gran % (36.0-66.0) % Eos # (Auto) (0-0.5) Absolute Lymphs (auto) (1.0-4.6) Absolute Monos (auto) (0.0-1.3) Lymphocytes % (24.0-44.0) % Monocytes % (0.0-12.0) % Eosinophils % (0.00-5.0) % Basophils % (0.0-0.4) % Absolute Granulocytes (1.4-6.9) Basophils # (0-0.4) Sodium (137-145) mmol/L Potassium (3.5-5.1) mmol/L Chloride (98-107) mmol/L Carbon Dioxide (22-30) mmol/L Anion Gap (5-15) MEQ/L BUN (7-17) mg/dL Creatinine (0.52-1.04) mg/dL Estimated GFR ML/MIN Glucose (74-106) mg/dL Calcium (8.4-10.2) mg/dL Total Bilirubin (0.2-1.3) mg/dL AST (14-36) U/L ALT (0-35) U/L Alkaline Phosphatase (38-126) U/L Serum Total Protein (6.3-8.2) g/dL Albumin (3.5-5.0) g/dL Urine Color YELLOW (YELLOW) Urine Appearance CLOUDY (CLEAR) Urine pH 7.0 (5-6) Ur Specific Steen 1.018 (1.005-1.025) Urine Protein NEGATIVE (Negative) Urine Ketones NEGATIVE (NEGATIVE) Urine Blood NEGATIVE (0-5) Que/ul Urine Nitrite NEGATIVE (NEGATIVE) Urine Bilirubin NEGATIVE (NEGATIVE) Urine Urobilinogen NEGATIVE (0-1) mg/dL Ur Leukocyte Esterase NEGATIVE (NEGATIVE) Urine WBC (Auto) 3-5 (0-5) /HPF Urine RBC (Auto) NONE (0-2) /HPF U Epithel Cells (Auto) FEW (FEW) /HPF Urine Bacteria (Auto) RARE (NEGATIVE) /HPF Amorphous Crystals MANY (NEGATIVE) /HPF Urine Culture Reflexed NO (NO) Urine Glucose NEGATIVE (NEGATIVE) mg/dL Salicylates (2-20) mg/dL Urine Opiates Level NEGATIVE (NEGATIVE) Ur Methadone NEGATIVE (NEGATIVE) Acetaminophen (10-30) ug/ml Urine Barbiturates NEGATIVE (NEGATIVE) Ur Phencyclidine (PCP) NEGATIVE (NEGATIVE) Urine Amphetamine NEGATIVE (NEGATIVE) U Benzodiazepine Level NEGATIVE (NEGATIVE) Urine Cocaine NEGATIVE (NEGATIVE) Urine Marijuana (THC) NEGATIVE (NEGATIVE) Ethyl Alcohol (0-10) mg/dL SARS-CoV-2 Ag (Rapid) (NEGATIVE) - Progress Progress: unchanged Progress Note: 02/20/21 17:56 Medical decision making: This patient is cooperative and wants to get help in an inpatient setting. She was evaluated by [facility] and they accept her for transfer. Her COVID-19 test is negative. Nurse practitioner Dayanna Valentin reviewed this patient's case after an evaluation was made and paperwork evaluated by [facility]. [facility] did not have any beds so [facility] nurse practitioner accepts the patient in transfer. Patient will be transferred approximately 830 to 9:00 PM tonight [facility] Counseled pt/family regarding: lab results, diagnosis - Departure Departure Disposition: Transfer Clinical Impression: Suicidal ideation Condition: Stable Critical Care Time: No Referrals: TORITO CARDENAS [ACTIVE STAFF] -
[2021-02-20 09:35] LABS: Basophil (Absolute #) 0.07 (0-0.4); Eosinophil % 1.1 % (0.00-5.0); Eosinophil (Absolute #) 0.08 (0-0.5); Hematocrit 36.3 % (35-47); Hemoglobin 11.5 gm/dl (12.0-16.0); Lymphocyte (Absolute #) 1.66 (1.0-4.6); Lymphocytes % 22.6 % (24.0-44.0); Mean Cell Volume 98.9 fl (78-100); Mean Corpuscular Hemoglobin 31.3 pg (26-32); Mean Corpuscular Hgb Concent. 31.7 g/dl (32-36); Mean Platelet Volume 8.3 fl (7.5-11.0); Monocyte (Absolute #) 0.54 (0.0-1.3); Monocytes % 7.3 % (0.0-12.0); Platelet Count 371 K/mm3 (150-450); Red Blood Count 3.67 M/mm3 (4.1-5.4); Red Cell Distribution Width 12.6 % (11.5-14.0); White Blood Count 7.4 K/mm3 (4.0-10.5)
[2021-02-20 09:50] LABS: ACETAMINOPHEN < 10 ug/ml (10-30); ALBUMIN 4.1 g/dL (3.5-5.0); ALKALINE PHOSPHATASE 30 U/L (38-126); ANION GAP 11.5 MEQ/L (5-15); BLOOD UREA NITROGEN 15 mg/dL (7-17); CHLORIDE 103 mmol/L (98-107); Calcium 9.5 mg/dL (8.4-10.2); Carbon Dioxide 29 mmol/L (22-30); Creatinine 1 0.76 mg/dL (0.52-1.04); EST GLOMERULAR FILTRATION RATE > 60.0 ML/MIN; ETHYL ALCOHOL < 10 mg/dL (0-10); Glucose 89 mg/dL (74-106); Potassium 4.5 mmol/L (3.5-5.1); SALICYLATE < 1.0 mg/dL (2-20); SGOT/AST 23 U/L (14-36); SGPT/ALT 14 U/L (0-35); SODIUM 139 mmol/L (137-145); Total Protein 6.7 g/dL (6.3-8.2)
[2021-02-20 09:54] LABS: Amourphous Crystal MANY /HPF (NEGATIVE); Appearance CLOUDY (CLEAR); Bacteria RARE /HPF (NEGATIVE); Bilirubin NEGATIVE (NEGATIVE); Blood NEGATIVE Ery/ul (0-5); Epithelial Cells FEW /HPF (FEW); Glucose NEGATIVE (NEGATIVE); Ketones NEGATIVE (NEGATIVE); Leukocyte Esterase NEGATIVE (NEGATIVE); Nitrite NEGATIVE (NEGATIVE); Protein,Urine Dip NEGATIVE (Negative); Specific Gravity 1.018 (1.005-1.025); Urobilinogen NEGATIVE mg/dL (0-1)
[2021-02-20 09:59] LABS: Amphetamine,Urine NEGATIVE (NEGATIVE); Barbiturate,Urine NEGATIVE (NEGATIVE); Benzodiazepine,Urine NEGATIVE (NEGATIVE); Cocaine,Urine NEGATIVE (NEGATIVE); Methadone,Urine NEGATIVE (NEGATIVE); Opiate,Urine NEGATIVE (NEGATIVE); PCP,Urine NEGATIVE (NEGATIVE); THC,Urine NEGATIVE (NEGATIVE)
[2021-02-20 16:18] LABS: COVID AG -BINAX NOW RAPID TEST NEGATIVE (NEGATIVE)
[2021-02-20 18:31] VITALS: O2SAT 98
[2021-02-20 20:18] VITALS: BP 121/71; PULSE 76
[2021-02-20] MEDS ORDERED: BENADRYL 25 MG CAPSULE ONE (20:19)
[2021-02-20] MEDS ORDERED: BENADRYL 25 MG CAPSULE PO ONE (20:19)
== END 2021-02-20 21:16 | disposition short-term general hospital (02) ==
LOC: ED 08:54
DX: R45.851 Suicidal ideations (principal); Z79.899 Other long term (current) drug therapy
CPT/HCPCS: 36415; 80053; 80307; 81001; 85025; 90791; 93005; 99000; 99285; G0480; Q3014; A9270-GY

== ENCOUNTER 2022-07-09 07:53 | Emergency (ER) | payer OTHER ==
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
[2022-07-09 09:17] VITALS: BP 140/80; PULSE 90; O2SAT 98
[2022-07-09] MEDS ORDERED: NORCO 5/325 MG PO ONE (09:29)
[2022-07-09] MEDS ORDERED: NORCO 5/325 MG ONE (09:33)
--- NOTE | 2022-07-09 09:37 | XRAY ---
Indication: Low back pain. Comparison: None 5 view lumbar spine demonstrates 5 lumbar segments with minimal dextroscoliosis centered at L1, minimal multilevel endplate spurring, mild L5-S1 disc space narrowing, and cholecystectomy clips. No other bony, articular, or soft tissue abnormalities.
[2022-07-09 09:38] LABS: Appearance Clear (Clear); Bacteria None Seen /HPF (None Seen); Bilirubin Negative (Negative); Blood Negative (Negative); Epithelial Cells None Seen /HPF (None Seen); Glucose, Urine Negative (Negative); Hyaline Casts NONE SEEN /LPF (0-2); Ketones Negative (Negative); Leukocyte Esterase Negative (Negative); Nitrite Negative (Negative); Protein,Urine Dip Negative (Negative); RBC 0-2 /HPF (0-5); Specific Gravity 1.015 (1.005-1.030); Urobilinogen 0.2 mg/dL (0.2); WBC 0-2 /HPF (0-5)
[2022-07-09 09:44] LABS: ADD URINE CULTURE? NO (NO)
== END 2022-07-09 09:45 | disposition home or self-care (01) ==
LOC: ED 07:53
DX: M54.50 Low back pain, unspecified (principal); Z79.52 Long term (current) use of systemic steroids; Z79.899 Other long term (current) drug therapy; Z72.0 Tobacco use
CPT/HCPCS: 72110; 81001; 99283; A9270-GY

== ENCOUNTER 2022-09-07 17:58 | Emergency (ER) | payer OTHER ==
[2022-09-07] MEDS ORDERED: Norflex 60 MG/2 ML IM ONE (18:12)
[2022-09-07] MEDS ORDERED: TORAdol 30 mg Injection IM ONE (18:12)
[2022-09-07 18:14] VITALS: BP 149/87; PULSE 90
[2022-09-07 18:18] VITALS: O2SAT 98
[2022-09-07] MEDS ORDERED: Norflex 60 MG/2 ML ONE (18:18)
[2022-09-07] MEDS ORDERED: TORAdol 30 mg Injection ONE (18:18)
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
== END 2022-09-07 19:16 | disposition home or self-care (01) ==
LOC: ED 17:58
DX: M54.42 Lumbago with sciatica, left side (principal); Z79.899 Other long term (current) drug therapy; Z72.0 Tobacco use
CPT/HCPCS: 96372; 99283; J1885; J2360

== ENCOUNTER 2022-09-14 18:14 | Emergency (ER) | payer OTHER ==
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
[2022-09-14] MEDS ORDERED: TORAdol 30 mg Injection IM ONE (19:13)
[2022-09-14] MEDS ORDERED: TORAdol 30 mg Injection ONE ×2 (19:15→19:16)
[2022-09-14] MEDS ORDERED: DELTASONE 20 MG PO ONE (19:42)
[2022-09-14] MEDS ORDERED: DELTASONE 20 MG ONE (19:53)
[2022-09-14 20:10] VITALS: BP 140/84; PULSE 86; O2SAT 98
== END 2022-09-14 20:11 | disposition home or self-care (01) ==
LOC: ED 18:14
DX: G89.29 Other chronic pain (principal); M54.32 Sciatica, left side; Z79.52 Long term (current) use of systemic steroids; Z79.899 Other long term (current) drug therapy; Z72.0 Tobacco use; Z59.9 Problem related to housing and economic circumstances, unspecified; Z56.0 Unemployment, unspecified
CPT/HCPCS: 96372; 99283; J1885; A9270-GY

== ENCOUNTER 2022-09-18 17:19 | Emergency (ER) | payer OTHER ==
[2022-09-18 17:54] VITALS: O2SAT 98
[2022-09-18] MEDS ORDERED: BACTRIM DS TABLET PO STA (17:57)
--- NOTE | 2022-09-18 17:58 | ERPHSYRPT ---
- History of Present Illness Time Seen by Provider: 09/18/22 18:00 Source: patient Exam Limitations: no limitations Patient Subjective Stated Complaint: pt here for an abscess under right arm for 2-3 days , no fever Triage Nursing Assessment: pt alert, walked in, resp easy, skin w/d/p.has abscess under right arm, with some redness no drainage Physician History: Patient a 42-year-old female presents emergency department for evaluation of right axillary abscess. Patient observed the abscess approximately 2 to 3 days ago. Patient squeezed the abscess and expressed pus. However the area today is somewhat red and tender. No fever. No systemic manifestations. No nausea no vomiting no upper extremity numbness tingling or weakness. Pain is localized. No radiation. No trauma. Patient otherwise feels well. She voices no other complaints or concerns at this time. Portions of this note were created with voice recognition technology. There may be grammatical, spelling, punctuation or sound alike errors Timing/Duration: day(s) (2 to 3 days ago) Severity: moderate Modifying Factors: Improves With: nothing Associated Symptoms: denies symptoms Allergies/Adverse Reactions: No Known Drug Allergies Allergy (Verified 09/18/22 17:48) Home Medications: Gabapentin [Neurontin] 600 mg PO TID 07/09/22 [History] Hx Tetanus, Diphtheria Vaccination/Date Given: Yes (2019) Hx Influenza Vaccination/Date Given: No Hx Pneumococcal Vaccination/Date Given: No Travel Risk - International Travel Have you traveled outside of the country in past 3 weeks: No - Coronavirus Screening Are you exhibiting any of the following symptoms?: No Close contact with a COVID-19 positive Pt in past 14-21 Days: No - Vaccine Status Have you recieved a Covid-19 vaccination: No [employer]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 - Review of Systems Constitutional: No Symptoms, No Fever, No Chills Eyes: No Symptoms Ears, Nose, & Throat: No Symptoms Respiratory: No Symptoms, No Cough, No Dyspnea Cardiac: No Symptoms, No Chest Pain, No Edema, No Syncope Abdominal/Gastrointestinal: No Symptoms, No Abdominal Pain, No Nausea, No Vomiting, No Diarrhea Genitourinary Symptoms: No Symptoms, No Dysuria Musculoskeletal: No Symptoms, No Back Pain, No Neck Pain Skin: No Symptoms, No Rash Neurological: No Symptoms, No Dizziness, No Focal Weakness, No Sensory Changes Psychological: No Symptoms Endocrine: No Symptoms Hematologic/Lymphatic: No Symptoms Immunological/Allergic: No Symptoms All Other Systems: Reviewed and Negative - Past Medical History Pertinent Past Medical History: Yes Neurological History: No Pertinent History ENT History: No Pertinent History Cardiac History: No Pertinent History Respiratory History: No Pertinent History Endocrine Medical History: No Pertinent History Musculoskeletal History: No Pertinent History GI Medical History: No Pertinent History History: No Pertinent History Psycho-Social History: Anxiety, Depression Female Reproductive Disorders: No Pertinent History Other Medical History: FRACTURED R ANKLE, OPEN WOUND BEING TREATED BY DOCTOR IN [facility] ONCE A WEEK. - Past Surgical History Past Surgical History: Yes Neuro Surgical History: No Pertinent History Cardiac: No Pertinent History Respiratory: No Pertinent History Gastrointestinal: Appendectomy, Cholecystectomy Genitourinary: No Pertinent History Musculoskeletal: No Pertinent History Female Surgical History: No Pertinent History Other Surgical History: titanium right ankle - Social History Smoking Status: Current every day smoker How long have you smoked: 7year Exposure to second hand smoke: No Drug Use: marijuana Patient Lives Alone: No - Female History Hx Last Menstrual Period: post Hx Now: No - Nursing Vital Signs Nursing Vital Signs: Initial Vital Signs Temperature 97.2 F 09/18/22 17:53 Pulse Rate 78 09/18/22 17:53 Respiratory Rate 18 09/18/22 17:53 Blood Pressure 121/88 09/18/22 17:53 O2 Sat by Pulse Oximetry 98 09/18/22 17:53 Pain Scale Pain Intensity 4 - Physical Exam General Appearance: no apparent distress, alert Eye Exam: PERRL/EOMI, eyes nml inspection Ears, Nose, Throat Exam: normal ENT inspection, TMs normal, pharynx normal, moist mucous membranes Neck Exam: normal inspection, non-tender, supple, full range of motion Respiratory Exam: normal breath sounds, lungs clear, airway intact, No respiratory distress Cardiovascular Exam: regular rate/rhythm, normal heart sounds, normal peripheral pulses Gastrointestinal/Abdomen Exam: soft, normal bowel sounds, No tenderness, No mass Back Exam: normal inspection, normal range of motion, No CVA tenderness, No vertebral tenderness Extremity Exam: normal inspection, normal range of motion, pelvis stable Neurologic Exam: alert, oriented x 3, cooperative, normal mood/affect, nml cerebellar function, nml station & gait, sensation nml, No motor deficits Skin Exam: normal color, warm, dry, other (Right axillary abscess with induration and early cellulitis. No fluctuance. Overlying soft tissue otherwise intact. No axillary lymphadenopathy. Right upper extremity neurovascular tact distally), No rash Lymphatic Exam: No adenopathy SpO2 Interpretation: normal SpO2: 98 O2 Delivery: Room Air - Course Nursing assessment & vital signs reviewed: Yes Ordered Tests: Medication Summary Discontinued Medications Generic Name Dose Route Start Last Admin Trade Name Freq PRN Reason Stop Dose Admin Ketorolac Tromethamine 30 mg 09/18/22 17:59 Ketorolac Tromethamine 30 Mg/Ml Inj IM 09/18/22 18:00 STAT ONE Trimethoprim/Sulfamethoxazole 1 tab 09/18/22 17:57 Smz/Tmp Ds Tablet 1 Tablet PO 09/18/22 17:58 STAT STA - Progress Progress: improved Progress Note: 42-year-old female presents to our ED for evaluation of abscess to right axilla. Patient squeezed the abscess and expressed pus. No fluctuance on this exam however there is early cellulitis and induration. Patient received a dose of Toradol IM for pain control. Patient received oral Bactrim DS. A prescription for Bactrim was forwarded to patient's pharmacy. Patient to self administer [id number] oral analgesics as needed for pain control. Patient has an appointment scheduled Dr. Bravo tomorrow. Patient otherwise feels well has no other complaints. Portions of this note were created with voice recognition technology. There may be grammatical, spelling, punctuation or sound alike errors Complexity of problem addressed is low. Acute uncomplicated. No critical care time. Complexity of data reviewed and analyzed is none. No specialized testing ordered. Diagnosis based on history and physical examination. Risk of complication and or risk morbidity/mortality of patient management is moderate. Patient received a dose of Bactrim DS in our ED. A prescription for the same was forwarded to patient's pharmacy. Disposition/plan of care established based on shared decision making. Patient agrees to follow-up with Dr. Bravo tomorrow as planned. She will pickle pumper her Bactrim DS this evening to be started tomorrow. Vital stable. Pain controlled at this time. Will discharge home. Patient voices no other complaints or c oncerns at this time. Portions of this note were created with voice recognition technology. There may be grammatical, spelling, punctuation or sound alike errors 09/18/22 18:04 Counseled pt/family regarding: diagnosis, need for follow-up - Departure Departure Disposition: Home Clinical Impression: Abscess, Induration, skin, Cellulitis Condition: Stable Critical Care Time: No Referrals: LONG BRAVO MD [Primary Care Provider] - Follow up/PCP as directed Additional Instructions: Discharge/Care Plan PABLITO LOYA was seen on 09/18/22 in the Emergency Room. The patient was counseled regarding Diagnosis,Lab results, Imaging studies, need for follow up and when to return to the Emergency Room. Prescriptions given: Discharge Note I have spoken with the patient and/or caregivers. I have explained the patient's condition, diagnosis and treatment plan based on the information available to me at this time. I have answered the patient's and/or caregiver's questions and addressed any concerns. The patient and/or caregivers have as good understanding of the patient's diagnosis, condition and treatment plan as can be expected at this point. The vital signs have been stable. The patient's condition is stable and appropriate for discharge from the emergency department. The patient will pursue further outpatient evaluation with the primary care physician or other designated or consulting physician as outlined in the discharge instructions. The patient and/or caregivers are agreeable to this plan of care and follow-up instructions have been explained in detail. The patient and/or caregivers have received these instruction. The patient/and or caregivers are aware that any significant change in condition or worsening of symptoms should prompt an immediate return to this or the closest emergency department or call 911. Prescriptions: Smz/Tmp Ds Tablet [Bactrim Ds Tablet] 1 udtab PO BID #14 tablet
[2022-09-18] MEDS ORDERED: TORAdol 30 mg Injection IM ONE (17:59)
[2022-09-18] MEDS ORDERED: TORAdol 30 mg Injection ONE (18:03)
[2022-09-18] MEDS ORDERED: BACTRIM DS TABLET PO ONE (18:03)
[2022-09-18 18:15] VITALS: BP 119/68; PULSE 75
== END 2022-09-18 18:33 | disposition home or self-care (01) ==
LOC: ED 17:19
DX: L02.411 Cutaneous abscess of right axilla (principal); R23.4 Changes in skin texture; L03.111 Cellulitis of right axilla; Z79.899 Other long term (current) drug therapy; Z72.0 Tobacco use
CPT/HCPCS: 96372; 99283; J1885; A9270-GY

== ENCOUNTER 2022-10-30 14:52 | Day surgery (SDC) | payer OTHER ==
[2012-04-12 18:51] VITALS: BP 132/74
[2022-10-30] MEDS ORDERED: Depo-Medrol 40 MG/ML IM ONE (14:53)
[2022-10-30] MEDS ORDERED: LIDOCAINE HCL 1% 50 MG/5 ML VL PF IJ ONE (14:53)
[2022-10-30] MEDS ORDERED: Sodium Chloride 0.9(Preservative Free) 10 ML IJ ONE (14:53)
[2022-10-30] MEDS ORDERED: Decadron 4 MG INJ IV ONE (14:53)
[2022-10-30] MEDS ORDERED: DIPRIVAN 200 MG/20 ML IV ONE ×2 (16:37→16:53)
[2022-10-30] MEDS ORDERED: TORAdol 30 mg Injection ONE (16:56)
[2022-10-30] MEDS ORDERED: Lactated Ringers 1,000 ML IV ONE (17:12)
--- NOTE | 2022-10-30 22:10 | XRAY ---
Indication: Left piriformis injection. Intraoperative fluoroscopy provided for 9 seconds. Single digital spot image submitted for interpretation demonstrates posterior needle tip projecting over left piriformis. Small amount of contrast injected for needle tip placement. Correlate with intraoperative findings/report.
--- NOTE | 2022-10-30 22:10 | XRAY ---
Indication: Caudal ADALBERTO. Intraoperative fluoroscopy provided for 29 seconds. 2 digital spot image submitted for interpretation demonstrates caudal needle tip projecting over mid sacrum. Small amount of contrast injected for needle tip placement. Correlate with intraoperative findings/report.
--- NOTE | 2022-10-31 10:21 | XRAY ---
9 seconds of fluoroscopy was used in surgery for a left piriformis injection.
--- NOTE | 2022-10-31 10:21 | XRAY ---
29 seconds of fluoroscopy was used in surgery for a caudal ADALBERTO.
== END 2022-10-30 17:15 | disposition home or self-care (01) ==
LOC: SDC-PAIN 14:52
PROVIDERS: ATTEND Psychiatry & Neurology Pain Medicine
DX: M54.16 Radiculopathy, lumbar region (principal); M79.18 Myalgia, other site; Z79.899 Other long term (current) drug therapy
CPT/HCPCS: 20552; 36415; 62323; 72170; 72220; 77002; 77003; 84702; J1030; J1100; J1885; J2001; J2704; Q9966

== ENCOUNTER 2022-12-11 08:01 | Day surgery (SDC) | payer OTHER ==
[2012-04-12 18:51] VITALS: BP 132/74
[2022-12-11] MEDS ORDERED: Depo-Medrol 40 MG/ML IM ONE (08:02)
[2022-12-11] MEDS ORDERED: Sodium Chloride 0.9(Preservative Free) 10 ML IJ ONE (08:02)
[2022-12-11 08:52] LABS: HCG SERUM TEST NEGATIVE (NEGATIVE)
[2022-12-11] MEDS ORDERED: DIPRIVAN 200 MG/20 ML IV ONE ×2 (09:41→09:49)
[2022-12-11] MEDS ORDERED: Versed 2 MG/2 ML Injection ONE (09:47)
[2022-12-11] MEDS ORDERED: Lactated Ringers 1,000 ML IV ONE (13:08)
--- NOTE | 2022-12-11 18:39 | XRAY ---
Indication: Left L4-S1 transforaminal ADALBERTO. Intraoperative fluoroscopy provided for 29 seconds. 4 digital spot image submitted for interpretation demonstrates posterior needle tip projecting over the expected left L4 and L5 nerve roots. Small amount of contrast injected for needle tip placement. Correlate with intraoperative findings/report.
--- NOTE | 2022-12-11 18:56 | XRAY ---
29 seconds of fluoroscopy was used in surgery for a left L4-S1 transforaminal ADALBERTO.
== END 2022-12-11 10:15 | disposition home or self-care (01) ==
LOC: SDC-PAIN 08:01
PROVIDERS: ATTEND Psychiatry & Neurology Pain Medicine
DX: M54.16 Radiculopathy, lumbar region (principal); Z79.899 Other long term (current) drug therapy
CPT/HCPCS: 36415; 64483; 64484; 72100; 77003; 84703; J1030; J2250; J2704

== ENCOUNTER 2023-01-30 19:16 | Inpatient (IN) | payer OTHER ==
--- NOTE | 2023-01-30 19:28 | ERPHSYRPT ---
- History of Present Illness Time Seen by Provider: 01/30/23 19:28 Historian: patient Exam Limitations: no limitations Physician History: This is a 42-year-old obese white female patient Dr. Bravo who presents to the emergency department with worsening abdominal pain over the last several days. It is now associated with nausea and vomiting. She denies diarrhea. She denies chest pain. She denies shortness of breath. Patient was seen at [facility] emergency department on 01/28/2023. I reviewed those record results. Since that date, her symptoms have worsened. Abdominal pain is now generalized. She describes the pain as cramping and at times very sharp pain. It is diffuse in its location. Patient has had an appendectomy and a cholecystectomy in the past. Patient has no known drug allergies. She has a history of anxiety and depression. Timing/Duration: day(s), gradual onset, worse (Symptoms worsening over last s everal days) Activities at Onset: none Quality: cramping, sharpness Abdominal Pain Onset Location: generalized abdomen Pain Radiation: no radiation Severity of Pain-Max: moderate Severity of Pain-Current: moderate Modifying Factors: Improves With: vomiting Associated Symptoms: diarrhea, loss of appetite, nausea, vomiting Previous symptoms: same symptoms as today, recently seen, recently treated Allergies/Adverse Reactions: No Known Drug Allergies Allergy (Verified 01/30/23 19:26) Home Medications: Gabapentin [Neurontin] 600 mg PO TID 07/09/22 [History] Meloxicam [Mobic] 15 mg PO DAILY 01/30/23 [History] Tramadol HCl 50 mg [Ultram 50 mg] 50 mg PO Q6HPRN PRN 01/30/23 [History] Hx Tetanus, Diphtheria Vaccination/Date Given: Yes (2019) Hx Influenza Vaccination/Date Given: No Hx Pneumococcal Vaccination/Date Given: No Travel Risk - International Travel Have you traveled outside of the country in past 3 weeks: No - Coronavirus Screening Are you exhibiting any of the following symptoms?: No Close contact with a COVID-19 positive Pt in past 14-21 Days: No - Vaccine Status Have you recieved a Covid-19 vaccination: No [place] [employer]: Exclusively.in - Vaccination Dates Dates if Unknown: ? - Review of Systems Constitutional: No Symptoms Eyes: No Symptoms Ears, Nose, & Throat: No Symptoms Respiratory: No Symptoms Cardiac: No Symptoms Abdominal/Gastrointestinal: Abdominal Pain, Nausea, Vomiting, Appetite Changes Genitourinary Symptoms: No Symptoms Musculoskeletal: No Symptoms Skin: No Symptoms Neurological: No Symptoms Psychological: No Symptoms Endocrine: No Symptoms Hematologic/Lymphatic: No Symptoms Immunological/Allergic: No Symptoms All Other Systems: Reviewed and Negative - Past Medical History Pertinent Past Medical History: Yes Neurological History: No Pertinent History ENT History: No Pertinent History Cardiac History: No Pertinent History Respiratory History: No Pertinent History Endocrine Medical History: No Pertinent History Musculoskeletal History: Fractures GI Medical History: No Pertinent History History: No Pertinent History Psycho-Social History: Anxiety, Depression Female Reproductive Disorders: No Pertinent History Other Medical History: ANXIETY/DEPRESSION - STATES GOING TO START ON MEDICATION. - Past Surgical History Past Surgical History: Yes Neuro Surgical History: No Pertinent History Cardiac: No Pertinent History Respiratory: No Pertinent History Gastrointestinal: Appendectomy, Cholecystectomy Genitourinary: No Pertinent History Musculoskeletal: No Pertinent History Female Surgical History: No Pertinent History Other Surgical History: titanium right ankle - Social History Smoking Status: Current every day smoker How long have you smoked: 7year Exposure to second hand smoke: No Drug Use: marijuana Patient Lives Alone: No - Nursing Vital Signs Nursing Vital Signs: Initial Vital Signs Blood Pressure 148/97 01/30/23 19:28 O2 Sat by Pulse Oximetry 96 01/30/23 19:28 Pain Scale Pain Intensity 5 - Physical Exam General Appearance: mild distress, alert, anxiety, obese Eye Exam: PERRL/EOMI, eyes nml inspection Ears, Nose, Throat Exam: normal ENT inspection Neck Exam: normal inspection, non-tender, supple, full range of motion Respiratory Exam: normal breath sounds, lungs clear, airway intact, No chest tenderness, No respiratory distress Cardiovascular Exam: regular rate/rhythm, normal heart sounds, normal peripheral pulses Gastrointestinal/Abdomen Exam: soft, normal bowel sounds, tenderness, guarding (Generalized), No rebound Pelvic Exam: not done Rectal Exam: not done Back Exam: normal inspection, normal range of motion, No CVA tenderness, No vertebral tenderness Extremity Exam: normal inspection, normal range of motion, pelvis stable Neurologic Exam: alert, oriented x 3, cooperative, manager security and safety II-XII nml as tested, nml cerebellar function, nml station & gait, sensation nml Skin Exam: normal color, warm, dry Lymphatic Exam: No adenopathy SpO2 Interpretation: normal O2 Delivery: Room Air - Course Nursing assessment & vital signs reviewed: Yes Ordered Tests: Active Orders 24 hr Category Date Time Status IV Insertion STAT Care 01/30/23 20:04 Active ABDOMEN AND PELVIS W/0 CONTRAS [CT] Stat Exams 01/30/23 20:29 Taken AMYLASE Stat Lab 01/30/23 19:30 Completed CBC W DIFF Stat Lab 01/30/23 19:30 Completed CMP Stat Lab 01/30/23 19:30 Completed CULTURE,URINE Stat Lab 01/30/23 20:07 Received LIPASE Stat Lab 01/30/23 19:30 Completed Lactic Acid Stat Lab 01/30/23 20:48 Completed UA W/RFX UR CULTURE Stat Lab 01/30/23 20:07 Completed Transfer Order Routine Transfer 01/30/23 Ordered Medication Summary Generic Name Dose Route Start Last Admin Trade Name Fremallory PRN Reason Stop Dose Admin Ceftriaxone Sodium/Dextrose 1 g in 50 mls @ 100 mls/hr 01/30/23 21:13 21:15 Rocephin 1 Gm-D5w 50 Ml Bag IV 01/30/23 21:42 100 mls/hr STAT STA 100 mls/hr Administration Sodium Chloride 1,000 mls @ 999 mls/hr 01/30/23 21:17 Sodium Chloride 0.9% 1000 Ml IV 01/30/23 22:17 .Q1H1M STA Discontinued Medications Generic Name Dose Route Start Last Admin Trade Name Siomara PRN Reason Stop Dose Admin Hydromorphone HCl 1 mg 01/30/23 20:04 01/30/23 20:11 Hydromorphone 1 Mg/1ml Inj IV 01/30/23 20:05 1 mg STAT ONE Administration Hydromorphone HCl Confirm 01/30/23 20:09 Hydromorphone 1 Mg/1ml Inj Administered 01/30/23 20:10 Dose 1 mg .ROUTE .STK-MED ONE Sodium Chloride 1,000 mls @ 999 mls/hr 01/30/23 20:04 01/30/23 21:14 Sodium Chloride 0.9% 1000 Ml IV 01/30/23 21:04 Infused .Q1H1M STA Infusion Sodium Chloride Confirm 01/30/23 20:09 Sodium Chloride 0.9% 1000 Ml Administered 01/30/23 20:10 Dose 1,000 mls @ ud .ROUTE .STK-MED ONE Ceftriaxone Sodium/Dextrose Confirm 01/30/23 21:14 Rocephin 1 Gm-D5w 50 Ml Bag Administered 01/30/23 21:15 Dose 1 g in 50 mls @ ud IV .STK-MED ONE Ondansetron HCl 4 mg 01/30/23 20:04 01/30/23 20:11 Ondansetron Hcl 4 Mg/2 Ml Vial IV 01/30/23 20:05 4 mg STAT ONE Administration Ondansetron HCl Confirm 01/30/23 20:09 Ondansetron Hcl 4 Mg/2 Ml Vial Administered 01/30/23 20:10 Dose 4 mg .ROUTE .STK-MED ONE Pantoprazole Sodium 40 mg 01/30/23 20:04 01/30/23 20:11 Pantoprazole 40 Mg Vial IV 01/30/23 20:05 40 mg STAT ONE Administration Pantoprazole Sodium Confirm 01/30/23 20:09 Pantoprazole 40 Mg Vial Administered 01/30/23 20:10 Dose 40 mg IV .STK-MED ONE Lab/Rad Data: Laboratory Result Diagrams 01/30/23 19:30 01/30/23 19:30 Laboratory Results 01/30/23 01/30/23 01/30/23 Range/Units 20:48 20:07 19:30 WBC (4.0-10.5) x10^3/uL RBC (4.1-5.4) x10^6/uL Hgb (12.0-16.0) g/dL Hct (35-47) % MCV (78-100) fL MCH (26-32) pg MCHC (32-36) g/dL RDW (11.5-14.0) % Plt Count (150-450) x10^3/uL MPV (7.5-11.0) fL Gran % (36.0-66.0) % Immature Gran % (Auto) (0.00-0.4) % Nucleat RBC Rel Count (0.00-0.1) % Eos # (Auto) (0-0.5) x10^3/uL Immature Gran # (Auto) (0.00-0.03) x10^3u/L Absolute Lymphs (auto) (1.0-4.6) x10^3/uL Absolute Monos (auto) (0.0-1.3) x10^3/uL Absolute Nucleated RBC (0.00-0.01) x10^3u/L Lymphocytes % (24.0-44.0) % Monocytes % (0.0-12.0) % Eosinophils % (0.00-5.0) % Basophils % (0.0-0.4) % Absolute Granulocytes (1.4-6.9) x10^3/uL Basophils # (0-0.4) x10^3/uL Sodium 139 (137-145) mmol/L Potassium 4.1 (3.5-5.1) mmol/L Chloride 99 (98-107) mmol/L Carbon Dioxide 23 (22-30) mmol/L Anion Gap 20.8 H (5-15) MEQ/L BUN 21 H (7-17) mg/dL Creatinine 0.76 (0.52-1.04) mg/dL Estimated GFR > 60.0 ML/MIN Glucose 144 H (74-106) mg/dL Lactic Acid 1.4 (0.4-2.0) Calcium 10.5 H (8.4-10.2) mg/dL Total Bilirubin 0.50 (0.2-1.3) mg/dL AST 26 (14-36) U/L ALT 20 (0-35) U/L Alkaline Phosphatase 83 (38-126) U/L Serum Total Protein 7.6 (6.3-8.2) g/dL Albumin 4.7 (3.5-5.0) g/dL Amylase 71 (30-110) U/L Lipase 79 (23-300) U/L Urine Color Dark Yellow A (Yellow) Urine Appearance Turbid A (Clear) Urine pH 6.0 (4.6-8.0) Ur Specific [place] 1.025 (1.005-1.030) Urine Protein 100 A (Negative) Urine Glucose (UA) Negative (Negative) mg/dL Urine Ketones 15 A (Negative) Urine Blood Negative (Negative) Urine Nitrite Negative (Negative) Urine Bilirubin Moderate A (Negative) Urine Urobilinogen 1.0 A (0.2) mg/dL Ur Leukocyte Esterase Moderate A (Negative) U Hyaline Cast (Auto) 20-50 (0-2) /LPF Urine Microscopic RBC 3-5 (0-5) /HPF Urine Microscopic WBC 21-50 A (0-5) /HPF Ur Epithelial Cells Many A (None Seen) /HPF Urine Bacteria Many A (None Seen) /HPF Urine Culture Reflexed YES (NO) 01/30/23 Range/Units 19:30 WBC 17.8 H (4.0-10.5) x10^3/uL RBC 4.12 (4.1-5.4) x10^6/uL Hgb 12.1 (12.0-16.0) g/dL Hct 37.5 (35-47) % MCV 91.0 (78-100) fL MCH 29.4 (26-32) pg MCHC 32.3 (32-36) g/dL RDW 13.5 (11.5-14.0) % Plt Count 717 H (150-450) x10^3/uL MPV 8.8 (7.5-11.0) fL Gran % 88.8 H (36.0-66.0) % Immature Gran % (Auto) 0.6 H (0.00-0.4) % Nucleat RBC Rel Count 0.0 (0.00-0.1) % Eos # (Auto) 0 (0-0.5) x10^3/uL Immature Gran # (Auto) 0.11 H (0.00-0.03) x10^3u/L Absolute Lymphs (auto) 1.05 (1.0-4.6) x10^3/uL Absolute Monos (auto) 0.81 (0.0-1.3) x10^3/uL Absolute Nucleated RBC 0.00 (0.00-0.01) x10^3u/L Lymphocytes % 5.9 L (24.0-44.0) % Monocytes % 4.5 (0.0-12.0) % Eosinophils % 0.0 (0.00-5.0) % Basophils % 0.2 (0.0-0.4) % Absolute Granulocytes 15.81 H (1.4-6.9) x10^3/uL Basophils # 0.04 (0-0.4) x10^3/uL Sodium (137-145) mmol/L Potassium (3.5-5.1) mmol/L Chloride (98-107) mmol/L Carbon Dioxide (22-30) mmol/L Anion Gap (5-15) MEQ/L BUN (7-17) mg/dL Creatinine (0.52-1.04) mg/dL Estimated GFR ML/MIN Glucose (74-106) mg/dL Lactic Acid (0.4-2.0) Calcium (8.4-10.2) mg/dL Total Bilirubin (0.2-1.3) mg/dL AST (14-36) U/L ALT (0-35) U/L Alkaline Phosphatase (38-126) U/L Serum Total Protein (6.3-8.2) g/dL Albumin (3.5-5.0) g/dL Amylase (30-110) U/L Lipase (23-300) U/L Urine Color (Yellow) Urine Appearance (Clear) Urine pH (4.6-8.0) Ur Specific [place] (1.005-1.030) Urine Protein (Negative) Urine Glucose (UA) (Negative) mg/dL Urine Ketones (Negative) Urine Blood (Negative) Urine Nitrite (Negative) Urine Bilirubin (Negative) Urine Urobilinogen (0.2) mg/dL Ur Leukocyte Esterase (Negative) U Hyaline Cast (Auto) (0-2) /LPF Urine Microscopic RBC (0-5) /HPF Urine Microscopic WBC (0-5) /HPF Ur Epithelial Cells (None Seen) /HPF Urine Bacteria (None Seen) /HPF Urine Culture Reflexed (NO) - Progress Progress: improved, pain not gone completely Progress Note: 01/30/23 21:21 This patient's medical issue is 1 of moderate to high complexity. The level of complexity and the work-up performed is based on review of the patient's past medical history, review of the patient's medication list, review of the patient's drug allergy list, history of present illness and physical findings on examination. It is also based on the results of the work-up performed. The work-up performed includes placement of an intravenous line, infusion of normal saline solution, infusion of Zofran 4 mg intravenously, infusion of Dilaudid 1 mg intravenously, infusion of Protonix 40 mg intravenously, CBC, CMP, amylase level, lipase level test, urinalysis. I also performed a CAT scan of the abdomen pelvis without contrast. The CAT scan of the abdomen and pelvis was interpreted by the radiologist. There is a new distal small bowel obstruction with fluid distended small bowel loops up to 4.5 cm with fluid leveling. The transition point is in the mid abdomen/mid ileum. There is small reactive free fluid but no free air. There is an incidental finding of a small hiatal hernia. This patient has leukocytosis, small bowel obstruction, urinary tract infection and dehydration. I will contact telehospitalist and we will discuss placing this patient in observation. We will provide the patient with another liter of intravenous normal saline as well as Rocephin 1 g intravenously. I will discuss with Dr. Christian about obtaining a surgical consultation on this patient. 01/30/23 21:24 01/30/23 21:[address] Christian who is the telehospitalist on-call. I reviewed the p atient history, physical findings, work-up results and the patient's clinical condition. We will provide this patient with inpatient admission. Dr. Christian would like an NG tube placed to low intermittent wall suction and patient is to be n.p.o. We have placed a call to general surgery service and are awaiting their call back to make them aware of a general surgical consultation. Counseled pt/family regarding: lab results, diagnosis, rad results Medical Desision Making - Independent Historian Additional History obtained from: Family - Discussion of managment Care discussed with:: hospitalist Reviewed:: Test results (Dr. Christian), Need for additional workup Agreed on:: Treatment plan, decision to admit Will see patient: in hospital - Diagnostic Testing Diagnostic test were ordered, analyzed, and reviewed by me: Yes Radiological Interpretation: Interpreted by me, Reviewed by me, Teleradiologist Report - Risk of complications The pt has a high risk of morbidity or mortality based on: Decision regarding hospitilization or escalation of hosp level of care - Departure Departure Disposition: Observation Clinical Impression: SBO (small bowel obstruction), UTI (urinary tract infection), Dehydration, Abdominal pain, Leukocytosis Condition: Stable Critical Care Time: No Referrals: LONG BRAVO MD [Primary Care Provider] - Follow up/PCP as directed
[2023-01-30] MEDS ORDERED: Hydromorphone 1 mg/ml Injection IV ONE (20:04)
[2023-01-30] MEDS ORDERED: PROTONIX 40 MG IV IV ONE ×2 (20:04→20:09)
[2023-01-30] MEDS ORDERED: Sodium Chloride 0.9% 1000 ML 1,000 ML IV STA ×2 (20:04→21:17)
[2023-01-30] MEDS ORDERED: Zofran 4 MG/2 ML VIAL IV ONE ×2 (20:04→22:03)
[2023-01-30] MEDS ORDERED: Hydromorphone 1 mg/ml Injection ONE (20:09)
[2023-01-30] MEDS ORDERED: Zofran 4 MG/2 ML VIAL ONE ×2 (20:09→22:04)
[2023-01-30] MEDS ORDERED: Sodium Chloride 0.9% 1000 ML 1,000 ML ONE ×2 (20:09→21:49)
[2023-01-30 20:11] LABS: Absolute Neutrophil Ct (ANC) 15.81 x10^3/uL (1.4-6.9); BASOPHIL % 0.2 % (0.0-0.4); Basophil (Absolute #) 0.04 x10^3/uL (0-0.4); Eosinophil (Absolute #) 0 x10^3/uL (0-0.5); Hematocrit 37.5 % (35-47); Hemoglobin 12.1 g/dL (12.0-16.0); IMMATURE GRAN # 0.11 x10^3u/L (0.00-0.03); IMMATURE GRAN % 0.6 % (0.00-0.4); Lymphocyte (Absolute #) 1.05 x10^3/uL (1.0-4.6); Lymphocytes % 5.9 % (24.0-44.0); Mean Corpuscular Hemoglobin 29.4 pg (26-32); Mean Corpuscular Hgb Concent. 32.3 g/dL (32-36); Mean Platelet Volume 8.8 fL (7.5-11.0); Monocyte (Absolute #) 0.81 x10^3/uL (0.0-1.3); Monocytes % 4.5 % (0.0-12.0); Neutrophil % 88.8 % (36.0-66.0); Platelet Count 717 x10^3/uL (150-450); Red Blood Count 4.12 x10^6/uL (4.1-5.4); Red Cell Distribution Width 13.5 % (11.5-14.0); White Blood Count 17.8 x10^3/uL (4.0-10.5)
[2023-01-30 20:18] LABS: ADD URINE CULTURE? YES (NO); Appearance Turbid (Clear); Bacteria Many /HPF (None Seen); Bilirubin Moderate (Negative); Blood Negative (Negative); Epithelial Cells Many /HPF (None Seen); Glucose, Urine Negative (Negative); Hyaline Casts 20-50 /LPF (0-2); Ketones 15 (Negative); Leukocyte Esterase Moderate (Negative); Nitrite Negative (Negative); Protein,Urine Dip 100 (Negative); Specific Gravity 1.025 (1.005-1.030); WBC 21-50 /HPF (0-5)
[2023-01-30 20:23] LABS: ALBUMIN 4.7 g/dL (3.5-5.0); ALKALINE PHOSPHATASE 83 U/L (38-126); AMYLASE 71 U/L (30-110); ANION GAP 20.8 MEQ/L (5-15); BLOOD UREA NITROGEN 21 mg/dL (7-17); CHLORIDE 99 mmol/L (98-107); Calcium 10.5 mg/dL (8.4-10.2); Carbon Dioxide 23 mmol/L (22-30); Creatinine 1 0.76 mg/dL (0.52-1.04); EST GLOMERULAR FILTRATION RATE > 60.0 ML/MIN; Glucose 144 mg/dL (74-106); LIPASE 79 U/L (23-300); Potassium 4.1 mmol/L (3.5-5.1); SGOT/AST 26 U/L (14-36); SGPT/ALT 20 U/L (0-35); SODIUM 139 mmol/L (137-145); Total Protein 7.6 g/dL (6.3-8.2)
[2023-01-30] MEDS ORDERED: ROCEPHIN 1 Gm-D5w 50 ml Bag** 1 G/50 ML IVPB IV STA (21:13)
[2023-01-30] MEDS ORDERED: ROCEPHIN 1 Gm-D5w 50 ml Bag** 1 G/50 ML IVPB IV ONE (21:14)
[2023-01-30] MEDS ORDERED: Ativan 2 MG/1 ML VIAL IV ONE (22:03)
[2023-01-30] MEDS ORDERED: Ativan 2 MG/1 ML VIAL ONE (22:05)
--- NOTE | 2023-01-30 22:28 | PCM.HP ---
History of Present Illness - Chief Complaint Chief Complaint: abd pain with nausea and vomiting History of Present Illness: is a 42 year old female with hx of anxiety/depression presented to ER with c/o severe, generalized abominal pain started earlier this week. She seeked help at [facility] and was discharged home after pre-cursory work- up that included labs and plain xray. Today, she came back with worsening of this pain - cramping and sharp in nature, severe - 9 out of 10 - associates with nausea and vomiting. Denies diarrhea, fever, chills, rigors. Denies flank pain, dysuria, hematuria. No chest pain nor SOB. She has had cholecystectomy and appendectomy. CT scan of abd done here shows distal small bowel distention/air - > admitted now with SBO. ER called and consulted general surgery director of distribution - Dr Cohen's group. - Review of Systems Constitutional: No Symptoms Eyes: No Symptoms Ears, Nose, & Throat: No Symptoms Respiratory: No Symptoms Cardiac: No Symptoms Abdominal/Gastrointestinal: Abdominal Pain, Nausea, Vomiting Genitourinary Symptoms: No Symptoms Musculoskeletal: No Symptoms Skin: No Symptoms Neurological: No Symptoms Psychological: No Symptoms Endocrine: No Symptoms Hematologic/Lymphatic: No Symptoms Immunological/Allergic: No Symptoms Medications & Allergies Home Medications: Home Medication List Gabapentin [Neurontin] 600 mg PO TID 07/09/22 [History Confirmed 01/30/23] Meloxicam [Mobic] 15 mg PO DAILY 01/30/23 [History Confirmed 01/30/23] Tramadol HCl 50 mg [Ultram 50 mg] 50 mg PO Q6HPRN PRN 01/30/23 [History Confirmed 01/30/23] Allergies/Adverse Reactions: Allergies Allergy/AdvReac Type Severity Reaction Status Date / Time No Known Drug Allergies Allergy Verified 01/30/23 19:26 - Past Medical History Past Medical History: Yes Neurological History: No Pertinent History ENT History: No Pertinent History Cardiac History: No Pertinent History Respiratory History: No Pertinent History Endocrine Medical History: No Pertinent History Musculoskelatal History: Fractures GI Medical History: No Pertinent History History: No Pertinent History Pyscho-Social History: Anxiety, Depression Reproductive Disorders: No Pertinent History Comment: ANXIETY/DEPRESSION - STATES GOING TO START ON MEDICATION. - Female History Are you now?: No - Past Surgical History Past Surgical History: Yes Neuro Surgical History: No Pertinent History Cardiac History: No Pertinent History Respiratory Surgery: No Pertinent History GI Surgical History: Appendectomy, Cholecystectomy Genitourinary Surgical Hx: No Pertinent History Musculskeletal Surgical Hx: No Pertinent History Female Surgical History: No Pertinent History Other Surgical History: titanium right ankle - Social History Smoking Status: Current every day smoker How long have you smoked: 7year Exposure to second hand smoke: No Alcohol: None Drug Use: marijuana Significant Family History: no pertinent family hx - Physical Exam Vital Signs: Vital Signs - 24 hr Pulse Resp BP BP Pulse Ox 01/30/23 22:01 99 H 156/100 95 01/30/23 21:31 122/83 01/30/23 21:00 92 H 16 134/82 134/82 96 01/30/23 20:50 135/84 95 01/30/23 20:40 96 01/30/23 20:34 96 01/30/23 20:17 92 H 18 144/95 97 01/30/23 20:00 144/95 01/30/23 19:39 99 H 143/92 96 01/30/23 19:29 98 H 18 148/97 96 01/30/23 19:28 148/97 96 General Appearance: mild distress Neurologic Exam: alert, oriented x 3, cooperative Eye Exam: PERRL/EOMI, eyes nml inspection Ears, Nose, Throat Exam: normal ENT inspection Neck Exam: normal inspection, supple Respiratory Exam: normal breath sounds Cardiovascular Exam: regular rate/rhythm, normal heart sounds Gastrointestinal/Abdomen Exam: tenderness, guarding Pelvic Exam: deferred Rectal Exam: deferred Back Exam: normal inspection Extremity Exam: normal inspection Skin Exam: normal color Results - Labs Lab/Micro Results: Lab Results-Last 24 Hours 01/30/23 01/30/23 01/30/23 Range/Units 19:30 19:30 20:07 WBC 17.8 H (4.0-10.5) x10^3/uL RBC 4.12 (4.1-5.4) x10^6/uL Hgb 12.1 (12.0-16.0) g/dL Hct 37.5 (35-47) % MCV 91.0 (78-100) fL MCH 29.4 (26-32) pg MCHC 32.3 (32-36) g/dL RDW 13.5 (11.5-14.0) % Plt Count 717 H (150-450) x10^3/uL MPV 8.8 (7.5-11.0) fL Gran % 88.8 H (36.0-66.0) % Immature Gran % (Auto) 0.6 H (0.00-0.4) % Nucleat RBC Rel Count 0.0 (0.00-0.1) % Eos # (Auto) 0 (0-0.5) x10^3/uL Immature Gran # (Auto) 0.11 H (0.00-0.03) x10^3u/L Absolute Lymphs (auto) 1.05 (1.0-4.6) x10^3/uL Absolute Monos (auto) 0.81 (0.0-1.3) x10^3/uL Absolute Nucleated RBC 0.00 (0.00-0.01) x10^3u/L Lymphocytes % 5.9 L (24.0-44.0) % Monocytes % 4.5 (0.0-12.0) % Eosinophils % 0.0 (0.00-5.0) % Basophils % 0.2 (0.0-0.4) % Absolute Granulocytes 15.81 H (1.4-6.9) x10^3/uL Basophils # 0.04 (0-0.4) x10^3/uL Sodium 139 (137-145) mmol/L Potassium 4.1 (3.5-5.1) mmol/L Chloride 99 (98-107) mmol/L Carbon Dioxide 23 (22-30) mmol/L Anion Gap 20.8 H (5-15) MEQ/L BUN 21 H (7-17) mg/dL Creatinine 0.76 (0.52-1.04) mg/dL Estimated GFR > 60.0 ML/MIN Glucose 144 H (74-106) mg/dL Lactic Acid (0.4-2.0) Calcium 10.5 H (8.4-10.2) mg/dL Total Bilirubin 0.50 (0.2-1.3) mg/dL AST 26 (14-36) U/L ALT 20 (0-35) U/L Alkaline Phosphatase 83 (38-126) U/L Serum Total Protein 7.6 (6.3-8.2) g/dL Albumin 4.7 (3.5-5.0) g/dL Amylase 71 (30-110) U/L Lipase 79 (23-300) U/L Urine Color Dark Yellow A (Yellow) Urine Appearance Turbid A (Clear) Urine pH 6.0 (4.6-8.0) Ur Specific [place] 1.025 (1.005-1.030) Urine Protein 100 A (Negative) Urine Glucose (UA) Negative (Negative) mg/dL Urine Ketones 15 A (Negative) Urine Blood Negative (Negative) Urine Nitrite Negative (Negative) Urine Bilirubin Moderate A (Negative) Urine Urobilinogen 1.0 A (0.2) mg/dL Ur Leukocyte Esterase Moderate A (Negative) U Hyaline Cast (Auto) 20-50 (0-2) /LPF Urine Microscopic RBC 3-5 (0-5) /HPF Urine Microscopic WBC 21-50 A (0-5) /HPF Ur Epithelial Cells Many A (None Seen) /HPF Urine Bacteria Many A (None Seen) /HPF Urine Culture Reflexed YES (NO) 01/30/23 Range/Units 20:48 WBC (4.0-10.5) x10^3/uL RBC (4.1-5.4) x10^6/uL Hgb (12.0-16.0) g/dL Hct (35-47) % MCV (78-100) fL MCH (26-32) pg MCHC (32-36) g/dL RDW (11.5-14.0) % Plt Count (150-450) x10^3/uL MPV (7.5-11.0) fL Gran % (36.0-66.0) % Immature Gran % (Auto) (0.00-0.4) % Nucleat RBC Rel Count (0.00-0.1) % Eos # (Auto) (0-0.5) x10^3/uL Immature Gran # (Auto) (0.00-0.03) x10^3u/L Absolute Lymphs (auto) (1.0-4.6) x10^3/uL Absolute Monos (auto) (0.0-1.3) x10^3/uL Absolute Nucleated RBC (0.00-0.01) x10^3u/L Lymphocytes % (24.0-44.0) % Monocytes % (0.0-12.0) % Eosinophils % (0.00-5.0) % Basophils % (0.0-0.4) % Absolute Granulocytes (1.4-6.9) x10^3/uL Basophils # (0-0.4) x10^3/uL Sodium (137-145) mmol/L Potassium (3.5-5.1) mmol/L Chloride (98-107) mmol/L Carbon Dioxide (22-30) mmol/L Anion Gap (5-15) MEQ/L BUN (7-17) mg/dL Creatinine (0.52-1.04) mg/dL Estimated GFR ML/MIN Glucose (74-106) mg/dL Lactic Acid 1.4 (0.4-2.0) Calcium (8.4-10.2) mg/dL Total Bilirubin (0.2-1.3) mg/dL AST (14-36) U/L ALT (0-35) U/L Alkaline Phosphatase (38-126) U/L Serum Total Protein (6.3-8.2) g/dL Albumin (3.5-5.0) g/dL Amylase (30-110) U/L Lipase (23-300) U/L Urine Color (Yellow) Urine Appearance (Clear) Urine pH (4.6-8.0) Ur Specific [place] (1.005-1.030) Urine Protein (Negative) Urine Glucose (UA) (Negative) mg/dL Urine Ketones (Negative) Urine Blood (Negative) Urine Nitrite (Negative) Urine Bilirubin (Negative) Urine Urobilinogen (0.2) mg/dL Ur Leukocyte Esterase (Negative) U Hyaline Cast (Auto) (0-2) /LPF Urine Microscopic RBC (0-5) /HPF Urine Microscopic WBC (0-5) /HPF Ur Epithelial Cells (None Seen) /HPF Urine Bacteria (None Seen) /HPF Urine Culture Reflexed (NO) - Radiology Impressions Radiology Exams & Impressions: Radiology Procedures Category Date Time Status ABDOMEN AND PELVIS W/0 CONTRAS [CT] Stat Exams 01/30/23 20:29 Taken NG TUBE PLACEMENT (RAD) Stat Exams 01/30/23 22:21 Taken Assessment/Plan (1) SBO (small bowel obstruction) Current Visit: Yes Status: Acute Assessment & Plan: CT abd showing distal SBO. NGT, NPO, surgical consult. No mass seen on CT. Code(s): K56.609 - UNSP INTESTNL OBST, UNSP TO PARTIAL VERSUS COMPLETE OBST (2) Abdominal pain Current Visit: Yes Status: Acute Assessment & Plan: Due to SBO. Prn pain meds, surgery seeing, NPO Code(s): R10.9 - UNSPECIFIED ABDOMINAL PAIN (3) UTI (urinary tract infection) Current Visit: Yes Status: Acute Assessment & Plan: Will start Rocephin 1mg IV daily. Culture sent Code(s): N39.0 - URINARY TRACT INFECTION, SITE NOT SPECIFIED (4) Leukocytosis Current Visit: Yes Status: Acute Assessment & Plan: WBC 17.8 - stress response + UTI. Treating these and monitoring WBC trend Code(s): D72.829 - ELEVATED WHITE BLOOD CELL COUNT, UNSPECIFIED (5) Hypercalcemia Current Visit: Yes Status: Acute Assessment & Plan: Ca 10.5 - mildly elevated, and could be due to dehydration. IVF should help, monitor level. I do not think we need any more work-up for this mildly elevated calcium Code(s): E83.52 - HYPERCALCEMIA (6) Reactive thrombocytosis Current Visit: Yes Status: Acute Assessment & Plan: Plt 717 - a reactive process, simply monitor Code(s): D75.838 - OTHER THROMBOCYTOSIS (7) Anxiety and depression Current Visit: Yes Status: Acute Assessment & Plan: Prn IV ativan would be ok. On Gabapentin at home Code(s): F41.9 - ANXIETY DISORDER, UNSPECIFIED; F32.A - DEPRESSION, UNSPECIFIED Telemedicine Encounter - Telemedicine Encounter Telemedicine Encounter: The entirety of this encounter was performed via Telemedicine" The pt gave me verbal consent to have this telemedicine visit
[2023-01-30] MEDS ORDERED: Zofran 4 MG/2 ML VIAL IV PRN (22:37)
[2023-01-30] MEDS ORDERED: Ativan 2 MG/1 ML VIAL IV PRN (22:38)
[2023-01-30] MEDS ORDERED: MORPHINE SULFATE 2 MG INJ IV PRN (22:40)
[2023-01-30] MEDS ORDERED: FEVERALL 650 MG PR PRN (22:51)
[2023-01-30] MEDS ORDERED: Lactated Ringers 1,000 ML IV SCH (23:00)
[2023-01-31] MEDS: Zofran 4 MG/2 ML VIAL IV PRN ×2 (01:43→08:47)
[2023-01-31] MEDS: Hydromorphone 1 mg/ml Injection IV PRN ×5 (04:39→22:30)
[2023-01-31 05:31] LABS: Absolute Neutrophil Ct (ANC) 9.02 x10^3/uL (1.4-6.9); BASOPHIL % 0.3 % (0.0-0.4); Basophil (Absolute #) 0.03 x10^3/uL (0-0.4); Eosinophil % 0.2 % (0.00-5.0); Eosinophil (Absolute #) 0.02 x10^3/uL (0-0.5); Hematocrit 33.1 % (35-47); Hemoglobin 10.4 g/dL (12.0-16.0); IMMATURE GRAN # 0.04 x10^3u/L (0.00-0.03); IMMATURE GRAN % 0.4 % (0.00-0.4); Lymphocyte (Absolute #) 1.09 x10^3/uL (1.0-4.6); Lymphocytes % 9.7 % (24.0-44.0); Mean Cell Volume 91.7 fL (78-100); Mean Corpuscular Hemoglobin 28.8 pg (26-32); Mean Corpuscular Hgb Concent. 31.4 g/dL (32-36); Mean Platelet Volume 8.6 fL (7.5-11.0); Monocyte (Absolute #) 1.03 x10^3/uL (0.0-1.3); Monocytes % 9.2 % (0.0-12.0); Neutrophil % 80.2 % (36.0-66.0); Platelet Count 509 x10^3/uL (150-450); Red Blood Count 3.61 x10^6/uL (4.1-5.4); Red Cell Distribution Width 13.8 % (11.5-14.0); White Blood Count 11.2 x10^3/uL (4.0-10.5)
[2023-01-31 05:59] LABS: ALBUMIN 3.7 g/dL (3.5-5.0); ALKALINE PHOSPHATASE 60 U/L (38-126); BLOOD UREA NITROGEN 22 mg/dL (7-17); CHLORIDE 102 mmol/L (98-107); Calcium 8.6 mg/dL (8.4-10.2); Carbon Dioxide 28 mmol/L (22-30); Creatinine 1 0.69 mg/dL (0.52-1.04); EST GLOMERULAR FILTRATION RATE > 60.0 ML/MIN; Glucose 116 mg/dL (74-106); Potassium 3.3 mmol/L (3.5-5.1); SGOT/AST 20 U/L (14-36); SGPT/ALT 17 U/L (0-35); SODIUM 140 mmol/L (137-145); Total Protein 6.4 g/dL (6.3-8.2)
[2023-01-31] MEDS ORDERED: HEPARIN 5000 UNITS/0.5 ML (HIGH RISK MED) SQ SCH (06:00)
[2023-01-31] MEDS: Sodium Chloride 0.9% 1000 ML 1,000 ML IV SCH ×4 (06:17→21:13)
[2023-01-31] MEDS: POTASSIUM CHLORIDE 20 mEq IN WATER 100ML 100 ML IV SCH ×4 (06:47→12:28)
--- NOTE | 2023-01-31 09:19 | XRAY ---
Indication: Abdomen pain, nausea, and vomiting 3 days. Multiple contiguous axial images obtained through the abdomen and pelvis without contrast. Comparison: October 29, 2015 Lung bases clear. Heart not enlarged. New small hiatal hernia. Stomach mildly fluid distended. New abnormal fluid distended small bowel loops throughout up to 4.5 cm diameter with fluid leveling. Transition point right mid abdomen/mid ileum. Distal ileum is decompressed. Findings consistent with small bowel obstruction. Tiny free fluid right abdomen and pelvis presumed reactive. No evidence for bowel ischemia or free air. New right lateral abdominal wall hernia mid axillary line just above iliac crest. Hernia defect at least 7 cm wide Appendectomy and cholecystectomy reported. Remaining liver, pancreas, spleen, adrenal glands, kidneys, ureters, bladder, uterus, and aorta are unremarkable for noncontrast exam. Osseous structures intact with new minimal/mild degenerative changes throughout the thoracolumbar spine and new 7-8 mm anterolisthesis of L5 on S1. Impression: 1. New CT findings favoring distal small bowel obstruction as detailed. Tiny free fluid presumed reactive. 2. New right lateral [place] abdominal wall hernia. 3. New small hiatal hernia. 4. New multilevel degenerative spondylosis and grade 1-2 L5 spondylolisthesis.
--- NOTE | 2023-01-31 09:21 | XRAY ---
Indication: NG tube placement. Small bowel obstruction. Limited frontal view lower chest/upper abdomen obtained for NG tube placement. Distal NG tube and tip is partially coiled in the left upper quadrant abdomen presumed in stomach.
[2023-01-31] MEDS ORDERED: ROCEPHIN 1 Gm-D5w 50 ml Bag** 1 G/50 ML IVPB IV SCH (10:00)
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
[2023-01-31] MEDS: PROTONIX 40 MG IV IV SCH (11:26)
[2023-01-31] MEDS: Compazine 10 MG/2 ML IV PRN (12:30)
[2023-01-31] MEDS: ROCEPHIN 1 Gm-D5w 50 ml Bag** 1 G/50 ML IVPB IV SCH (21:23)
[2023-02-01] MEDS: Zofran 4 MG/2 ML VIAL IV PRN ×3 (05:02→21:17)
[2023-02-01] MEDS: Sodium Chloride 0.9% 1000 ML 1,000 ML IV SCH ×3 (05:03→21:58)
[2023-02-01] MEDS: Hydromorphone 1 mg/ml Injection IV PRN ×3 (05:06→22:12)
[2023-02-01 05:43] LABS: Hemoglobin 9.6 g/dL (12.0-16.0); Mean Cell Volume 93.7 fL (78-100); Mean Platelet Volume 8.3 fL (7.5-11.0); Platelet Count 406 x10^3/uL (150-450); Red Blood Count 3.31 x10^6/uL (4.1-5.4); Red Cell Distribution Width 13.5 % (11.5-14.0); White Blood Count 6.8 x10^3/uL (4.0-10.5)
[2023-02-01 06:27] LABS: BLOOD UREA NITROGEN 19 mg/dL (7-17); CHLORIDE 102 mmol/L (98-107); Calcium 8.2 mg/dL (8.4-10.2); Carbon Dioxide 25 mmol/L (22-30); Creatinine 1 0.56 mg/dL (0.52-1.04); EST GLOMERULAR FILTRATION RATE > 60.0 ML/MIN; Glucose 96 mg/dL (74-106); MAGNESIUM 1.6 mg/dL (1.6-2.3); Potassium 3.5 mmol/L (3.5-5.1); SODIUM 138 mmol/L (137-145)
[2023-02-01] MEDS ORDERED: CHLORASEPTIC SPRAY 180 ML PO PRN (07:21)
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
[2023-02-01] MEDS: PROTONIX 40 MG IV IV SCH (09:27)
[2023-02-01] MEDS ORDERED: Ativan 2 MG/1 ML VIAL IV STA (10:04)
--- NOTE | 2023-02-01 10:22 | XRAY ---
CLINICAL HISTORY:SBO- progression COMPARISON:None TECHNIQUE:X-ray of abdomen, AP view. FINDINGS: Non-obstructive bowel gas pattern seen. Nasogastric tube is seen overlying antrum/pyloric region of the stomach. Few surgical clips are seen in the right upper quadrant likely due to prior surgery/intervention. The stomach, small bowel, and colon gas patterns are all normal and there is no free air around the falciform ligament. No definite radiopaque shadows could be depicted. Scanned osseous structures are unremarkable. IMPRESSION: Nonobstructive bowel gas pattern seen. Electronically Signed by: Jenna Jarrett MD. (02/01/2023 09:20:19 BIOPHARMACEUTICAL REP)
[2023-02-01] MEDS ORDERED: ULTRAM 50 MG PO PRN (11:39)
[2023-02-01] MEDS: VITAMIN D PO SCH (14:22)
[2023-02-01] MEDS: NEURONTIN PO SCH (14:22)
[2023-02-01] MEDS: BENTYL 20 MG PO SCH ×2 (14:23→17:32)
[2023-02-01] MEDS: Pepcid 20 MG PO SCH (14:23)
[2023-02-01] MEDS ORDERED: NON-FORMULARY BULK ITEM PO PRN (14:38)
[2023-02-01] MEDS: Compazine 10 MG/2 ML IV PRN (17:54)
[2023-02-01] MEDS ORDERED: Hydromorphone 1 mg/ml Injection ONE (17:54)
--- NOTE | 2023-02-01 19:31 | XRAY ---
CLINICAL HISTORY:ABD PAIN/ vomiting COMPARISON:None. TECHNIQUE:X-ray of abdomen, AP view. FINDINGS: A small bowel loop in the left upper quadrant measures 5cm in diameter raising suspicion for dilatation. No evidence of any free air around the falciform ligament. Few surgical clips are seen in the right upper quadrant likely due to prior surgery/intervention. No definite radiopaque shadows could be depicted in the line of bilateral kidneys or bladder. There is also evidence of fracture of right-sided transverse processes of L3, L4, and L5, more evident in the earlier study. The rest of the scanned osseous structures are unremarkable. IMPRESSION: 1. Dilated small bowel loops in the left upper quadrant require further clinical correlation for obstruction/ileus. Further evaluation with contrast-enhanced CT is recommended. 2. No free air to suggest perforation in the present study. However erect/lateral decubitus view would be helpful if there is any clinical concern. 3. Fracture right transverse process of L3, L4, and L5 .. more obvious in the previous study. Electronically Signed by: Jenna Jarrett MD. (02/01/2023 18:29:42 ROLL HANDLER)
[2023-02-01] MEDS: ROCEPHIN 1 Gm-D5w 50 ml Bag** 1 G/50 ML IVPB IV SCH (22:11)
[2023-02-02] MEDS: NEURONTIN PO SCH (00:07)
[2023-02-02] MEDS: Pepcid 20 MG PO SCH (00:07)
[2023-02-02] MEDS: BENTYL 20 MG PO SCH (00:07)
[2023-02-02] MEDS: Compazine 10 MG/2 ML IV PRN ×3 (03:05→19:35)
[2023-02-02] MEDS: Hydromorphone 1 mg/ml Injection IV PRN ×5 (03:06→21:35)
[2023-02-02 05:33] LABS: Hematocrit 31.3 % (35-47); Mean Cell Volume 91.3 fL (78-100); Mean Corpuscular Hemoglobin 29.2 pg (26-32); Mean Corpuscular Hgb Concent. 31.9 g/dL (32-36); Platelet Count 431 x10^3/uL (150-450); Red Blood Count 3.43 x10^6/uL (4.1-5.4); Red Cell Distribution Width 13.2 % (11.5-14.0); White Blood Count 12.6 x10^3/uL (4.0-10.5)
[2023-02-02 05:59] LABS: ALBUMIN 3.7 g/dL (3.5-5.0); ALKALINE PHOSPHATASE 64 U/L (38-126); ANION GAP 13.6 MEQ/L (5-15); BLOOD UREA NITROGEN 14 mg/dL (7-17); CHLORIDE 99 mmol/L (98-107); Calcium 8.6 mg/dL (8.4-10.2); Carbon Dioxide 26 mmol/L (22-30); Creatinine 1 0.48 mg/dL (0.52-1.04); EST GLOMERULAR FILTRATION RATE > 60.0 ML/MIN; Glucose 109 mg/dL (74-106); MAGNESIUM 1.6 mg/dL (1.6-2.3); Potassium 3.4 mmol/L (3.5-5.1); SGOT/AST 20 U/L (14-36); SGPT/ALT 15 U/L (0-35); SODIUM 135 mmol/L (137-145); Total Protein 6.4 g/dL (6.3-8.2)
[2023-02-02] MEDS: Sodium Chloride 0.9% 1000 ML 1,000 ML IV SCH (06:04)
[2023-02-02] MEDS ORDERED: POTASSIUM CHLORIDE 20 mEq IN WATER 100ML 20 MEQ/100 ML BAG IV ONE (07:29)
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
[2023-02-02] MEDS ORDERED: PATIENT OWN MEDICATION PO PRN (07:42)
[2023-02-02] MEDS: Zofran 4 MG/2 ML VIAL IV PRN ×3 (07:56→23:41)
--- NOTE | 2023-02-02 08:37 | XRAY ---
CLINICAL HISTORY:small bowel obstruction COMPARISON:02/01/2023 17:31 pm TECHNIQUE:X-ray of abdomen, AP views. FINDINGS: Dilated jejunal loops reaching up to 5 cm in diameter are suggestive of bowel obstruction. No evidence of any free air around the falciform ligament. Few surgical clips are seen in the right upper quadrant likely due to prior surgery/intervention. No definite radiopaque shadows could be depicted in the line of bilateral kidneys or bladder. Possible fractures of right-sided transverse processes of L3, L4, and L5 vertebrae. The rest of the scanned osseous structures are unremarkable. IMPRESSION: 1. Findings are suggestive of proximal small bowel obstruction and further evaluation by CT is advised. No evidence of any free air around the falciform ligament. 2. No definite radiopaque shadows could be depicted in the line of bilateral kidneys or bladder. 3. Possible fractures of right-sided transverse processes of L3, L4, and L5 vertebrae. 4. No significant interval change. The [place] [facility] was called at [phone] at 07:25 AM LEATHER WHITENER, 02/02/2023, and significant medical findings were verbally communicated to JUANITO Roach. Electronically Signed by: Jenna Jarrett MD. (02/02/2023 07:35:13 LEATHER WHITENER)
[2023-02-02] MEDS ORDERED: MILK OF MAGNESIA 30 ML PO ONE (09:30)
[2023-02-02] MEDS: D5W/0.45NS W/ 20mEq KCl 1000 ML 1,000 ML IV SCH ×2 (09:40→19:24)
[2023-02-02] MEDS: PROTONIX 40 MG IV IV SCH (09:41)
--- NOTE | 2023-02-02 18:37 | XRAY ---
CLINICAL HISTORY:ABD pain and vmoiting COMPARISON:01/30/2023. TECHNIQUE:A CT scan of the abdomen and pelvis was performed with IV contrast. 80 cc of Injection Isovue (370 mg/100 ml) was administered as an intravenous contrast agent. Coronal and sagittal reconstructive images were also obtained. FINDINGS: A scan through the lower chest reveals an unremarkable lung basis and heart. Abdomen: There are minimal ascites. The liver is of average size and measures 16 cm. No focal or diffuse parenchymal abnormality. The gallbladder is surgically removed with surgical clips seen at its bed. The portal vein, intrahepatic biliary radicals, and the bile ducts are normal. The spleen, pancreas, and adrenal glands are unremarkable. The kidneys are unremarkable. They are normal in size and shape. No calculi or hydronephrosis. Dilatation of the stomach with diffuse distention of small intestinal loops down to the distal ileum, the transition point is not clearly delineated in this study. There is no significant change in the degree of distention when compared to the prior study. Pelvis: The urinary bladder is unremarkable. The rectosigmoid colon is unremarkable. The uterus is normal. The pelvic vasculature is unremarkable. No evidence of pelvic lymphadenopathy. There are complete transverse fractures of the right transverse processes of L3, L4, and L5 vertebrae. Grade 1 anterolisthesis of L5 over S1. IMPRESSION: 1. Distal small bowel obstruction, with dilatation of the stomach and diffuse distention of small intestinal loops down to the distal ileum, the transition point is not clearly delineated in this study. There is no significant change in the degree of distention when compared to the prior study. 2. Minimal ascites 3. Complete transverse fractures, right transverse processes of L3, L4, and L5 vertebrae. 4. Grade 1 anterolisthesis of L5 over S1. Electronically Signed by: Jenna Jarrett MD. (02/02/2023 17:37:09 ASSOCIATE [employer]RAF[employer])
[2023-02-03] MEDS: Compazine 10 MG/2 ML IV PRN ×2 (02:18→08:37)
[2023-02-03] MEDS: Hydromorphone 1 mg/ml Injection IV PRN ×5 (02:18→21:44)
[2023-02-03] MEDS: D5W/0.45NS W/ 20mEq KCl 1000 ML 1,000 ML IV SCH ×2 (05:20→15:52)
[2023-02-03 05:48] LABS: Hematocrit 31.4 % (35-47); Hemoglobin 10.3 g/dL (12.0-16.0); Mean Cell Volume 89.5 fL (78-100); Mean Corpuscular Hemoglobin 29.3 pg (26-32); Mean Corpuscular Hgb Concent. 32.8 g/dL (32-36); Mean Platelet Volume 8.2 fL (7.5-11.0); Platelet Count 435 x10^3/uL (150-450); Red Blood Count 3.51 x10^6/uL (4.1-5.4); Red Cell Distribution Width 13.4 % (11.5-14.0); White Blood Count 10.2 x10^3/uL (4.0-10.5)
--- NOTE | 2023-02-03 05:48 | PCM.NOTE ---
Date and Time: 02/03/23 0543 Subjective Assessment: is a 42 year old female with hx of anxiety/depression presented to ER with c/o severe, generalized abdominal pain started earlier this week. She went to [facility] and was discharged home after pre-cursory work-up that included labs and plain xray. 2 days ago , she came back with worsening of this pain - cramping and sharp in nature, severe - 9 out of 10 - associates with nausea and vomiting. Denies diarrhea, fever, chills, rigors. Denies flank pain, dysuria, hematuria. No chest pain nor SOB. She has had cholecystectomy and appendectomy.CT scan of abd done here shows distal small bowel distention/air - > admitted with SBO. Surgery consulted and pt was initially treated conser vatively with NG on LIS with moderate amounts of dark brown output. UTI and receiving rocephin. Most recent CT showing . Distal small bowel obstruction, with dilatation of the stomach and diffuse, distention of small intestinal loops down to the distal ileum, the transition point is not clearly delineated in this study. There is no significant change in the degree of distention when compared to the prior study. Patient endorses that she is unable to produce flatus or BM despite bowel prep and continues with episodes of vomiting bile. Plan is for surgical intervention 02/04/23 per nursing notes. Will add ativan 0.25mg IV Q4H for nausea/anxiety. - Review of Systems Constitutional: No Symptoms Eyes: No Symptoms Ears, Nose, & Throat: No Symptoms Respiratory: No Symptoms Cardiac: No Symptoms Abdominal/Gastrointestinal: Abdominal Pain, Nausea, Vomiting, Appetite Changes Genitourinary Symptoms: No Symptoms Musculoskeletal: No Symptoms Skin: No Symptoms Neurological: No Symptoms Psychological: Anxiety Endocrine: No Symptoms Hematologic/Lymphatic: No Symptoms Immunological/Allergic: No Symptoms Objective Exam General Appearance: mild distress Neurologic Exam: alert, oriented x 3, cooperative Skin Exam: normal color Eye Exam: PERRL Neck Exam: normal inspection Respiratory Exam: normal breath sounds Cardiovascular Exam: regular rate/rhythm, normal heart sounds Gastrointestinal/Abdomen Exam: tenderness, distention, other (hypoactive BS x 4 quads) Extremity Exam: normal inspection OBJECTIVE DATA Vital Signs: Vital Signs - 24 hr Temp Pulse Resp BP Pulse Ox 02/03/23 04:00 97.8 F 84 16 135/79 95 02/02/23 23:49 97.5 F 88 14 136/76 96 02/02/23 20:00 97.7 F 94 H 16 128/85 97 02/02/23 15:45 97.1 F 95 H 16 133/76 93 L 02/02/23 11:23 97.8 F 113 H 16 128/89 98 02/02/23 06:49 97.7 F 88 16 128/70 92 L Pain Assessment - Last Documented Pain Intensity 6 Pain Scale Used 0-10 Pain Scale Intake and Output: Intake & Output 01/31/23 02/01/23 02/02/23 02/03/23 11:59 11:59 11:59 11:59 Intake Total 602 3961 4379 1486 Output Total 500 4550 1350 3000 Balance 102 -589 3029 -1514 Weight 96.7 kg 99 kg 97.9 kg Lab Results: Lab Results-Last 24 Hours 02/02/23 02/02/23 Range/Units 05:27 10:05 Sodium 135 L (137-145) mmol/L Potassium 3.4 L 3.8 (3.5-5.1) mmol/L Chloride 99 (98-107) mmol/L Carbon Dioxide 26 (22-30) mmol/L Anion Gap 13.6 (5-15) MEQ/L BUN 14 (7-17) mg/dL Creatinine 0.48 L (0.52-1.04) mg/dL Estimated GFR > 60.0 ML/MIN Glucose 109 H (74-106) mg/dL Calcium 8.6 (8.4-10.2) mg/dL Magnesium 1.6 (1.6-2.3) mg/dL Total Bilirubin 0.30 (0.2-1.3) mg/dL AST 20 (14-36) U/L ALT 15 (0-35) U/L Alkaline Phosphatase 64 (38-126) U/L Serum Total Protein 6.4 (6.3-8.2) g/dL Albumin 3.7 (3.5-5.0) g/dL Radiology Exams: Radiology Procedures Category Date Time Status ABDOMEN 2 VIEW Stat Exams 02/01/23 07:59 Completed ABDOMEN AND PELVIS W CONTRAST [CT] Stat Exams 02/02/23 17:16 Completed KUB Stat Exams 02/01/23 17:24 Completed KUB Urgent Exams 02/02/23 07:30 Completed Assessment/Plan (1) SBO (small bowel obstruction) Current Visit: Yes Status: Acute Assessment & Plan: -As noted on Ct imaging without improvement with conservative treatment -Continue with bowel rest -Continue to monitor renal/lytes daily -Surgical consult, most likely surgery today -anti-emetics for N/V -Failed bowel prep, no BM/flatus Code(s): K56.609 - UNSP INTESTNL OBST, UNSP TO PARTIAL VERSUS COMPLETE OBST (2) Anxiety and depression Current Visit: Yes Status: Acute Assessment & Plan: -currently not taking any home meds - Will need to f/u with mental health and PCP OP. 02/01 - 1 time dose of Ativan 0.5mg - for anxiety - Case management working with pt for OP services 02/02: -Will add ativan 0.25mg Q4H for anxiety/N/V Code(s): F41.9 - ANXIETY DISORDER, UNSPECIFIED; F32.A - DEPRESSION, UNSPECIFIED (3) Hypercalcemia Current Visit: Yes Status: Acute Assessment & Plan: -Ca 10.5 - mildly elevated, and could be due to dehydration. IVF should help, monitor level. I do not think we need any more work-up for this mildly elevated calcium 01/31 - Ca+ 8.6 resolved Code(s): E83.52 - HYPERCALCEMIA (4) Hypokalemia Current Visit: Yes Status: Acute Assessment & Plan: -Potassium level at 3.4 today, will replenish -add mg level Code(s): E87.6 - HYPOKALEMIA (5) Leukocytosis Current Visit: Yes Status: Resolved Assessment & Plan: WBC 17.8 - stress response + UTI. Treating these and monitoring WBC trend 01/31 - improving WBC 11.2 02/01 - resolved WBC 6.8 02/02 - WBC 12.6- stress response 02/03: -Resolved Code(s): D72.829 - ELEVATED WHITE BLOOD CELL COUNT, UNSPECIFIED (6) Reactive thrombocytosis Current Visit: Yes Status: Acute Assessment & Plan: lt 717 - a reactive process, simply monitor 01/31 - Improving, Plt 509 02/01 - Platelet count 406 WNL - resolved Code(s): D75.838 - OTHER THROMBOCYTOSIS (7) Abdominal pain Current Visit: Yes Status: Acute Assessment & Plan: -Secondary to SBO, see SBO Code(s): R10.9 - UNSPECIFIED ABDOMINAL PAIN
[2023-02-03] MEDS: Zofran 4 MG/2 ML VIAL IV PRN (06:20)
[2023-02-03 08:23] LABS: ALBUMIN 3.8 g/dL (3.5-5.0); ALKALINE PHOSPHATASE 73 U/L (38-126); ANION GAP 13.3 MEQ/L (5-15); BLOOD UREA NITROGEN 12 mg/dL (7-17); CHLORIDE 95 mmol/L (98-107); Calcium 8.9 mg/dL (8.4-10.2); Carbon Dioxide 30 mmol/L (22-30); Creatinine 1 0.55 mg/dL (0.52-1.04); EST GLOMERULAR FILTRATION RATE > 60.0 ML/MIN; Glucose 151 mg/dL (74-106); Potassium 3.4 mmol/L (3.5-5.1); SGOT/AST 21 U/L (14-36); SGPT/ALT 19 U/L (0-35); SODIUM 135 mmol/L (137-145); Total Protein 6.6 g/dL (6.3-8.2)
[2023-02-03] MEDS: PROTONIX 40 MG IV IV SCH (08:37)
[2023-02-03] MEDS: Ativan 2 MG/1 ML VIAL IV PRN (08:37)
[2023-02-03 11:56] LABS: HCG URINE TEST NEGATIVE (NEGATIVE)
[2023-02-03] MEDS ORDERED: Lactated Ringers 1,000 ML IV ONE (12:16)
[2023-02-03] MEDS ORDERED: Zemuron 100 MG/10 ML ONE (12:26)
[2023-02-03] MEDS ORDERED: SUBLIMAZE 250 MCG/5 ML ONE (12:26)
[2023-02-03] MEDS ORDERED: Quelicin Fliptop 200 MG/10 ML ONE (12:26)
[2023-02-03] MEDS ORDERED: Versed 2 MG/2 ML Injection ONE (12:26)
[2023-02-03] MEDS ORDERED: Lactated Ringers 2,000 ML IV ONE (12:26)
[2023-02-03] MEDS ORDERED: DIPRIVAN 200 MG/20 ML IV ONE (12:26)
[2023-02-03] MEDS ORDERED: Lactated Ringers 1,000 ML IV SCH (12:30)
[2023-02-03] MEDS ORDERED: Xylocaine-Mpf 2% 5 Ml Vial ONE (12:47)
[2023-02-03 13:00] LABS: ABO TYPING B; Antibody Screen NEGATIVE (NEGATIVE); RH TYPING POSITIVE
[2023-02-03] MEDS ORDERED: MEFOXIN 2 GM PREMIX** 2 GM/50 ML ML IV ONE (13:00)
--- NOTE | 2023-02-03 13:14 | XRAY ---
CLINICAL HISTORY:Pre-op COMPARISON:None. TECHNIQUE:X-ray of the chest, PA view. FINDINGS: Radiographic examination of the chest demonstrates clear lungs. Normal configuration of the mediastinum. The julius are normal in size and position. The cardiac size is normal. The bony thorax is unremarkable. The costophrenic and cardiophrenic angles are clear. IMPRESSION: Unremarkable x-ray for the chest. Electronically Signed by: Jenna Jarrett MD. (02/03/2023 12:12:46 [employer])
[2023-02-03] MEDS ORDERED: SUBLIMAZE 100 MCG/2 ML ONE ×3 (13:26→14:33)
[2023-02-03] MEDS ORDERED: Marcaine 0.5%/Epinephrine 10 ML ONE ×2 (13:39)
[2023-02-03] MEDS ORDERED: DILAUDID 2 MG INJECTION ONE (13:41)
[2023-02-03] MEDS ORDERED: BRIDION 200MG/2ML IV ONE (13:43)
[2023-02-03] MEDS ORDERED: Zofran 4 MG/2 ML VIAL ONE (13:43)
[2023-02-03] MEDS ORDERED: TORAdol 30 mg Injection ONE (14:15)
[2023-02-03] MEDS ORDERED: Hydromorphone 1 mg/ml Injection ONE ×2 (14:19→14:23)
[2023-02-03] MEDS ORDERED: Compazine 10 MG/2 ML ONE (14:23)
[2023-02-03] MEDS ORDERED: TYLENOL 325 MG PO PRN (15:18)
[2023-02-03 16:24] LABS: Appearance Clear (Clear); Bacteria None Seen /HPF (None Seen); Bilirubin Small (Negative); Blood Large (Negative); Epithelial Cells Rare /HPF (None Seen); Glucose, Urine Negative (Negative); Hyaline Casts NONE SEEN /LPF (0-2); Ketones Trace (Negative); Leukocyte Esterase Trace (Negative); Nitrite Negative (Negative); Protein,Urine Dip 30 (Negative); Urobilinogen 0.2 mg/dL (0.2)
[2023-02-03] MEDS: MEFOXIN 1 Gm/ D5W 50 Ml** 1 G/50 ML ML IV SCH (17:34)
[2023-02-04] MEDS: MEFOXIN 1 Gm/ D5W 50 Ml** 1 G/50 ML ML IV SCH ×3 (00:48→11:24)
[2023-02-04] MEDS: Hydromorphone 1 mg/ml Injection IV PRN ×8 (00:48→23:39)
[2023-02-04] MEDS: D5W/0.45NS W/ 20mEq KCl 1000 ML 1,000 ML IV SCH ×3 (01:52→22:56)
[2023-02-04 04:50] LABS: Absolute Neutrophil Ct (ANC) 8.93 x10^3/uL (1.4-6.9); BASOPHIL % 0.2 % (0.0-0.4); Basophil (Absolute #) 0.02 x10^3/uL (0-0.4); Eosinophil % 0.3 % (0.00-5.0); Eosinophil (Absolute #) 0.03 x10^3/uL (0-0.5); Hematocrit 33.3 % (35-47); IMMATURE GRAN # 0.04 x10^3u/L (0.00-0.03); IMMATURE GRAN % 0.4 % (0.00-0.4); Lymphocyte (Absolute #) 0.61 x10^3/uL (1.0-4.6); Lymphocytes % 5.8 % (24.0-44.0); Mean Cell Volume 89.3 fL (78-100); Mean Corpuscular Hemoglobin 29.5 pg (26-32); Mean Platelet Volume 8.9 fL (7.5-11.0); Monocyte (Absolute #) 0.91 x10^3/uL (0.0-1.3); Monocytes % 8.6 % (0.0-12.0); Neutrophil % 84.7 % (36.0-66.0); Platelet Count 464 x10^3/uL (150-450); Red Blood Count 3.73 x10^6/uL (4.1-5.4); Red Cell Distribution Width 13.5 % (11.5-14.0); White Blood Count 10.5 x10^3/uL (4.0-10.5)
[2023-02-04 05:02] LABS: ANION GAP 11.6 MEQ/L (5-15); BLOOD UREA NITROGEN 15 mg/dL (7-17); CHLORIDE 97 mmol/L (98-107); Calcium 7.8 mg/dL (8.4-10.2); Carbon Dioxide 27 mmol/L (22-30); Creatinine 1 0.92 mg/dL (0.52-1.04); EST GLOMERULAR FILTRATION RATE > 60.0 ML/MIN; Glucose 135 mg/dL (74-106); Potassium 3.9 mmol/L (3.5-5.1); SODIUM 132 mmol/L (137-145)
--- NOTE | 2023-02-04 05:46 | PCM.NOTE ---
Date and Time: 02/04/23 0544 Subjective Assessment: is a 42 year old female with hx of anxiety/depression presented to ER with c/o severe, generalized abdominal pain started earlier this week. She went to [facility] and was discharged home after pre-cursory work-up that included labs and plain xray. 2 days ago , she came back with worsening of this pain - cramping and sharp in nature, severe - 9 out of 10 - associates with nausea and vomiting. Denies diarrhea, fever, chills, rigors. Denies flank pain, dysuria, hematuria. No chest pain nor SOB. She has had cholecystectomy and appendectomy.CT scan of abd done here shows distal small bowel distention/air - > admitted with SBO. Surgery consulted and pt was initially treated conser vatively with NG on LIS with moderate amounts of dark brown output. UTI and receiving rocephin. Most recent CT showing . Distal small bowel obstruction, with dilatation of the stomach and diffuse, distention of small intestinal loops down to the distal ileum, the transition point is not clearly delineated in this study. There is no significant change in the degree of distention when compared to the prior study. Patient is s/p lap cholecystectomy with small bowel resection w/ anastomosis and doing well. She is with a MLI, NG placed with green drainage. Endorses anxiety with some pain but overall improvement of symptoms overnight. Currently with sips/ice chip restrictions. Plan is to AD per surgery, continue with Cefoxitin due to small perforation. Urine cult with NGTD. - Review of Systems Constitutional: No Symptoms Eyes: No Symptoms Ears, Nose, & Throat: No Symptoms Respiratory: No Symptoms Cardiac: No Symptoms Abdominal/Gastrointestinal: Abdominal Pain, Other (MLI CDI NG placed at LIS) Genitourinary Symptoms: No Symptoms Musculoskeletal: No Symptoms Skin: No Symptoms Neurological: No Symptoms Psychological: Anxiety Endocrine: No Symptoms Hematologic/Lymphatic: No Symptoms Objective Exam General Appearance: mild distress Neurologic Exam: alert, oriented x 3, cooperative Skin Exam: normal color, other (MLI, CDI) Eye Exam: PERRL Respiratory Exam: normal breath sounds, lungs clear Cardiovascular Exam: regular rate/rhythm, normal heart sounds Gastrointestinal/Abdomen Exam: distention, other (hypoactive BS x 4 quads, MLI covered with surgical tape,CDI) Extremity Exam: normal inspection Back Exam: normal inspection Pelvic Exam: deferred Rectal Exam: deferred OBJECTIVE DATA Vital Signs: Vital Signs - 24 hr Temp Pulse Resp BP Pulse Ox 02/04/23 04:49 971 F 118 H 17 121/67 90 L 02/03/23 23:25 97.7 F 126 H 16 127/67 91 L 02/03/23 18:51 97.4 F 128 H 16 131/63 93 L 02/03/23 18:00 97.5 F 108 H 15 130/63 93 L 02/03/23 17:00 97.4 F 114 H 15 131/54 92 L 02/03/23 16:30 97.3 F 105 H 16 126/60 96 02/03/23 16:00 97.3 F 110 H 15 121/62 92 L 02/03/23 15:45 97.3 F 85 15 126/60 95 02/03/23 15:30 97.2 F 75 15 121/61 89 L 02/03/23 15:13 97.3 F 85 15 127/59 92 L 02/03/23 12:00 97.3 F 76 17 134/79 95 02/03/23 09:20 97.8 F 93 H 18 154/78 93 L 02/03/23 06:29 97.8 F 93 H 18 154/78 93 L Pain Assessment - Last Documented Pain Intensity 7 Pain Scale Used 0-10 Pain Scale Intake and Output: Intake & Output 02/01/23 02/02/23 02/03/23 02/04/23 11:59 11:59 11:59 11:59 Intake Total 3961 4379 2536 2344 Output Total 9080 1350 4900 300 Balance -589 5314 -7196 9758 Weight 99 kg 97.9 kg 97.8 kg Lab Results: Lab Results-Last 24 Hours 02/03/23 02/03/23 02/03/23 Range/Units 05:38 05:38 05:38 WBC 10.2 (4.0-10.5) x10^3/uL RBC 3.51 L (4.1-5.4) x10^6/uL Hgb 10.3 L (12.0-16.0) g/dL Hct 31.4 L (35-47) % MCV 89.5 (78-100) fL MCH 29.3 (26-32) pg MCHC 32.8 (32-36) g/dL RDW 13.4 (11.5-14.0) % Plt Count 435 (150-450) x10^3/uL MPV 8.2 (7.5-11.0) fL Gran % (36.0-66.0) % Immature Gran % (Auto) (0.00-0.4) % Nucleat RBC Rel Count (0.00-0.1) % Eos # (Auto) (0-0.5) x10^3/uL Immature Gran # (Auto) (0.00-0.03) x10^3u/L Absolute Lymphs (auto) (1.0-4.6) x10^3/uL Absolute Monos (auto) (0.0-1.3) x10^3/uL Absolute Nucleated RBC (0.00-0.01) x10^3u/L Lymphocytes % (24.0-44.0) % Monocytes % (0.0-12.0) % Eosinophils % (0.00-5.0) % Basophils % (0.0-0.4) % Absolute Granulocytes (1.4-6.9) x10^3/uL Basophils # (0-0.4) x10^3/uL Sodium 135 L (137-145) mmol/L Potassium 3.4 L (3.5-5.1) mmol/L Chloride 95 L (98-107) mmol/L Carbon Dioxide 30 (22-30) mmol/L Anion Gap 13.3 (5-15) MEQ/L BUN 12 (7-17) mg/dL Creatinine 0.55 (0.52-1.04) mg/dL Estimated GFR > 60.0 ML/MIN Glucose 151 H (74-106) mg/dL Calcium 8.9 (8.4-10.2) mg/dL Magnesium 1.9 (1.6-2.3) mg/dL Total Bilirubin 0.40 (0.2-1.3) mg/dL AST 21 (14-36) U/L ALT 19 (0-35) U/L Alkaline Phosphatase 73 (38-126) U/L Serum Total Protein 6.6 (6.3-8.2) g/dL Albumin 3.8 (3.5-5.0) g/dL Urine Color (Yellow) Urine Appearance (Clear) Urine pH (4.6-8.0) Ur Specific [place] (1.005-1.030) Urine Protein (Negative) Urine Glucose (UA) (Negative) mg/dL Urine Ketones (Negative) Urine Blood (Negative) Urine Nitrite (Negative) Urine Bilirubin (Negative) Urine Urobilinogen (0.2) mg/dL Ur Leukocyte Esterase (Negative) U Hyaline Cast (Auto) (0-2) /LPF Urine Microscopic RBC (0-5) /HPF Urine Microscopic WBC (0-5) /HPF Ur Epithelial Cells (None Seen) /HPF Urine Bacteria (None Seen) /HPF Urine HCG, Qual (NEGATIVE) ABO Group Rh Factor Antibody Screen (NEGATIVE) 02/03/23 02/03/23 02/03/23 Range/Units 11:20 11:48 12:54 WBC (4.0-10.5) x10^3/uL RBC (4.1-5.4) x10^6/uL Hgb (12.0-16.0) g/dL Hct (35-47) % MCV (78-100) fL MCH (26-32) pg MCHC (32-36) g/dL RDW (11.5-14.0) % Plt Count (150-450) x10^3/uL MPV (7.5-11.0) fL Gran % (36.0-66.0) % Immature Gran % (Auto) (0.00-0.4) % Nucleat RBC Rel Count (0.00-0.1) % Eos # (Auto) (0-0.5) x10^3/uL Immature Gran # (Auto) (0.00-0.03) x10^3u/L Absolute Lymphs (auto) (1.0-4.6) x10^3/uL Absolute Monos (auto) (0.0-1.3) x10^3/uL Absolute Nucleated RBC (0.00-0.01) x10^3u/L Lymphocytes % (24.0-44.0) % Monocytes % (0.0-12.0) % Eosinophils % (0.00-5.0) % Basophils % (0.0-0.4) % Absolute Granulocytes (1.4-6.9) x10^3/uL Basophils # (0-0.4) x10^3/uL Sodium (137-145) mmol/L Potassium (3.5-5.1) mmol/L Chloride (98-107) mmol/L Carbon Dioxide (22-30) mmol/L Anion Gap (5-15) MEQ/L BUN (7-17) mg/dL Creatinine (0.52-1.04) mg/dL Estimated GFR ML/MIN Glucose (74-106) mg/dL Calcium (8.4-10.2) mg/dL Magnesium (1.6-2.3) mg/dL Total Bilirubin (0.2-1.3) mg/dL AST (14-36) U/L ALT (0-35) U/L Alkaline Phosphatase (38-126) U/L Serum Total Protein (6.3-8.2) g/dL Albumin (3.5-5.0) g/dL Urine Color Dark Yellow A (Yellow) Urine Appearance Clear (Clear) Urine pH 8.0 (4.6-8.0) Ur Specific [place] 1.020 (1.005-1.030) Urine Protein 30 (Negative) Urine Glucose (UA) Negative (Negative) mg/dL Urine Ketones Trace A (Negative) Urine Blood Large A (Negative) Urine Nitrite Negative (Negative) Urine Bilirubin Small A (Negative) Urine Urobilinogen 0.2 (0.2) mg/dL Ur Leukocyte Esterase Trace A (Negative) U Hyaline Cast (Auto) NONE SEEN (0-2) /LPF Urine Microscopic RBC 3-5 (0-5) /HPF Urine Microscopic WBC 6-10 A (0-5) /HPF Ur Epithelial Cells Rare (None Seen) /HPF Urine Bacteria None Seen (None Seen) /HPF Urine HCG, Qual NEGATIVE (NEGATIVE) ABO Group B Rh Factor POSITIVE Antibody Screen NEGATIVE (NEGATIVE) 02/04/23 02/04/23 Range/Units 04:43 04:43 WBC 10.5 (4.0-10.5) x10^3/uL RBC 3.73 L (4.1-5.4) x10^6/uL Hgb 11.0 L (12.0-16.0) g/dL Hct 33.3 L (35-47) % MCV 89.3 (78-100) fL MCH 29.5 (26-32) pg MCHC 33.0 (32-36) g/dL RDW 13.5 (11.5-14.0) % Plt Count 464 H (150-450) x10^3/uL MPV 8.9 (7.5-11.0) fL Gran % 84.7 H (36.0-66.0) % Immature Gran % (Auto) 0.4 (0.00-0.4) % Nucleat RBC Rel Count 0.0 (0.00-0.1) % Eos # (Auto) 0.03 (0-0.5) x10^3/uL Immature Gran # (Auto) 0.04 H (0.00-0.03) x10^3u/L Absolute Lymphs (auto) 0.61 L (1.0-4.6) x10^3/uL Absolute Monos (auto) 0.91 (0.0-1.3) x10^3/uL Absolute Nucleated RBC 0.00 (0.00-0.01) x10^3u/L Lymphocytes % 5.8 L (24.0-44.0) % Monocytes % 8.6 (0.0-12.0) % Eosinophils % 0.3 (0.00-5.0) % Basophils % 0.2 (0.0-0.4) % Absolute Granulocytes 8.93 H (1.4-6.9) x10^3/uL Basophils # 0.02 (0-0.4) x10^3/uL Sodium 132 L (137-145) mmol/L Potassium 3.9 (3.5-5.1) mmol/L Chloride 97 L (98-107) mmol/L Carbon Dioxide 27 (22-30) mmol/L Anion Gap 11.6 (5-15) MEQ/L BUN 15 (7-17) mg/dL Creatinine 0.92 (0.52-1.04) mg/dL Estimated GFR > 60.0 ML/MIN Glucose 135 H (74-106) mg/dL Calcium 7.8 L (8.4-10.2) mg/dL Magnesium (1.6-2.3) mg/dL Total Bilirubin (0.2-1.3) mg/dL AST (14-36) U/L ALT (0-35) U/L Alkaline Phosphatase (38-126) U/L Serum Total Protein (6.3-8.2) g/dL Albumin (3.5-5.0) g/dL Urine Color (Yellow) Urine Appearance (Clear) Urine pH (4.6-8.0) Ur Specific [place] (1.005-1.030) Urine Protein (Negative) Urine Glucose (UA) (Negative) mg/dL Urine Ketones (Negative) Urine Blood (Negative) Urine Nitrite (Negative) Urine Bilirubin (Negative) Urine Urobilinogen (0.2) mg/dL Ur Leukocyte Esterase (Negative) U Hyaline Cast (Auto) (0-2) /LPF Urine Microscopic RBC (0-5) /HPF Urine Microscopic WBC (0-5) /HPF Ur Epithelial Cells (None Seen) /HPF Urine Bacteria (None Seen) /HPF Urine HCG, Qual (NEGATIVE) ABO Group Rh Factor Antibody Screen (NEGATIVE) Radiology Exams: Radiology Procedures Category Date Time Status ABDOMEN AND PELVIS W CONTRAST [CT] Stat Exams 02/02/23 17:16 Completed CHEST 1 VIEW (PORTABLE) Stat Exams 02/03/23 11:24 Completed KUB Urgent Exams 02/02/23 07:30 Completed Assessment/Plan (1) SBO (small bowel obstruction) Current Visit: Yes Status: Acute Assessment & Plan: -As noted on Ct imaging without improvement with conservative treatment -Continue with bowel rest -Continue to monitor renal/lytes daily -Surgical consult, most likely surgery today -anti-emetics for N/V -Failed bowel prep, no BM/flatus 02/04: -S/P exp lab with small bowel resection w/anaostomosis -Continue cefoxitin due to small perf -Continue dressing changes PRN -AD per surgery D/C pending surg recs Code(s): K56.609 - UNSP INTESTNL OBST, UNSP TO PARTIAL VERSUS COMPLETE OBST (2) Anxiety and depression Current Visit: Yes Status: Acute Assessment & Plan: -currently not taking any home meds - Will need to f/u with mental health and PCP OP. 02/01 - 1 time dose of Ativan 0.5mg - for anxiety - Case management working with pt for OP services 02/02: -Will add ativan 0.25mg Q4H for anxiety/N/V Code(s): F41.9 - ANXIETY DISORDER, UNSPECIFIED; F32.A - DEPRESSION, UNSPECIFIED (3) Hypocalcemia Current Visit: Yes Status: Acute Assessment & Plan: -labs reviewed, calcium at 7.8, corrected calcium at 8.3, continue to monitor Code(s): E83.51 - HYPOCALCEMIA (4) Hypercalcemia Current Visit: Yes Status: Resolved Assessment & Plan: -Ca 10.5 - mildly elevated, and could be due to dehydration. IVF should help, mo nitor level. I do not think we need any more work-up for this mildly elevated calcium 01/31 - Ca+ 8.6 resolved Code(s): E83.52 - HYPERCALCEMIA (5) Hypokalemia Current Visit: Yes Status: Acute Assessment & Plan: -Potassium level at 3.4 today, will replenish -add mg level 02/04: -resolved Code(s): E87.6 - HYPOKALEMIA (6) Leukocytosis Current Visit: Yes Status: Resolved Assessment & Plan: WBC 17.8 - stress response + UTI. Treating these and monitoring WBC trend 01/31 - improving WBC 11.2 9/2 - resolved WBC 6.8 / - WBC 12.6- stress response 02/03: -Resolved Code(s): D72.829 - ELEVATED WHITE BLOOD CELL COUNT, UNSPECIFIED (7) Reactive thrombocytosis Current Visit: Yes Status: Acute Assessment & Plan: lt 717 - a reactive process, simply monitor 01/31 - Improving, Plt 509 02/01 - Platelet count 406 WNL - resolved Code(s): D75.838 - OTHER THROMBOCYTOSIS (8) Abdominal pain Current Visit: Yes Status: Acute Assessment & Plan: -Secondary to SBO, see SBO Code(s): R10.9 - UNSPECIFIED ABDOMINAL PAIN
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
[2023-02-04] MEDS: PROTONIX 40 MG IV IV SCH (09:08)
[2023-02-04] MEDS: ENOXAPARIN SODIUM SQ SCH (09:08)
--- NOTE | 2023-02-04 13:48 | OP ---
SURGERY DATE: 02/03/2023 SURGERY TIME: 1240 PREOPERATIVE DIAGNOSIS: 1. ACUTE BOWEL OBSTRUCTION REFRACTORY TO NONOPERATIVE CARE. POSTOPERATIVE DIAGNOSIS: 1. ACUTE SMALL BOWEL OBSTRUCTION SECONDARY TO ADHESIONS WITH HIGH GRADE SMALL BOWEL OBSTRUCTION AND EARLY FOCAL PERFORATION. PROCEDURE: 1. Exploratory laparotomy. 2. Resection of 10 inches of small bowel with primary anastomosis. SURGEON: Alvaro Cohen M.D. ANESTHESIA: General endotracheal tube. COMPLICATIONS: None. CONDITION: Stable. BLOOD LOSS: None. DRAINS: None. INDICATION: Patient has signs and symptoms consistent with small bowel obstruction. She had 1 plain film which was better. Her nasogastric tube was removed, but subsequently, she did not pass any gas and she became more distended and started vomiting. She had a repeat CT scan basically very similar to admission CT. She has still not passed any gas. It was felt that at this time surgical intervention was necessary. OPERATIVE PROCEDURE: She was brought to surgery. General anesthetic. Routine prep and drape. Midline incision was reentered. Upper abdomen was satisfactory. Lower abdomen, there was clear fluid that was suctioned. There was an obvious area of twisted small bowel with adhesions and it was twisted tight enough that right in the crotch there was a pinpoint perforation. This was actually enlarged about half the diameter of the bowel by pulling and tugging on this and resecting this area. There was at least 12 inches of ileum prior to the cecum distally. About 10 inches of bowel was taken. [id number] anastomosis. [place] green followed by contoured green. Necessary defect approximated with running 3-0 PDS. Pelvis and lower abdomen were irrigated and suctioned. Bowel was laid back in organized fashion. Omentum brought down. Anterior abdominal wall closed with 0 looped PDS. Subcutaneous tissue irrigated. Skin closed with sutures and preston. Patient tolerated the procedure satisfactory.
[2023-02-04] MEDS ORDERED: NORCO 5/325 MG ONE (22:15)
[2023-02-04] MEDS: Ativan 2 MG/1 ML VIAL IV PRN (22:17)
[2023-02-05] MEDS: Hydromorphone 1 mg/ml Injection IV PRN (04:50)
[2023-02-05 04:53] LABS: Absolute Neutrophil Ct (ANC) 12.33 x10^3/uL (1.4-6.9); BASOPHIL % 0.1 % (0.0-0.4); Basophil (Absolute #) 0.02 x10^3/uL (0-0.4); Eosinophil % 0.9 % (0.00-5.0); Eosinophil (Absolute #) 0.13 x10^3/uL (0-0.5); Hematocrit 30.2 % (35-47); Hemoglobin 9.9 g/dL (12.0-16.0); IMMATURE GRAN # 0.14 x10^3u/L (0.00-0.03); IMMATURE GRAN % 0.9 % (0.00-0.4); Lymphocyte (Absolute #) 0.78 x10^3/uL (1.0-4.6); Lymphocytes % 5.3 % (24.0-44.0); Mean Cell Volume 88.8 fL (78-100); Mean Corpuscular Hemoglobin 29.1 pg (26-32); Mean Corpuscular Hgb Concent. 32.8 g/dL (32-36); Mean Platelet Volume 8.6 fL (7.5-11.0); Monocyte (Absolute #) 1.37 x10^3/uL (0.0-1.3); Monocytes % 9.3 % (0.0-12.0); Neutrophil % 83.5 % (36.0-66.0); Platelet Count 445 x10^3/uL (150-450); Red Cell Distribution Width 13.2 % (11.5-14.0); White Blood Count 14.8 x10^3/uL (4.0-10.5)
[2023-02-05 05:12] LABS: ALBUMIN 2.8 g/dL (3.5-5.0); ALKALINE PHOSPHATASE 65 U/L (38-126); ANION GAP 9.9 MEQ/L (5-15); BLOOD UREA NITROGEN 10 mg/dL (7-17); CHLORIDE 96 mmol/L (98-107); Calcium 7.9 mg/dL (8.4-10.2); Carbon Dioxide 25 mmol/L (22-30); Creatinine 1 0.57 mg/dL (0.52-1.04); EST GLOMERULAR FILTRATION RATE > 60.0 ML/MIN; Glucose 126 mg/dL (74-106); Potassium 3.8 mmol/L (3.5-5.1); SGOT/AST 19 U/L (14-36); SGPT/ALT 17 U/L (0-35); SODIUM 127 mmol/L (137-145); Total Protein 5.3 g/dL (6.3-8.2)
--- NOTE | 2023-02-05 05:15 | PCM.NOTE ---
Date and Time: 02/05/23 0510 Subjective Assessment: is a 42 year old female with hx of anxiety/depression presented to ER with c/o severe, generalized abdominal pain started earlier this week. She went to [facility] and was discharged home after pre-cursory work-up that included labs and plain xray. 2 days ago , she came back with worsening of this pain - cramping and sharp in nature, severe - 9 out of 10 - associates with nausea and vomiting. Denies diarrhea, fever, chills, rigors. Denies flank pain, dysuria, hematuria. No chest pain nor SOB. She has had cholecystectomy and appendectomy.CT scan of abd done here shows distal small bowel distention/air - > admitted with SBO. Surgery consulted and pt was initially treated conserv atively with NG on LIS with moderate amounts of dark brown output. UTI and receiving rocephin. Most recent CT showing Distal small bowel obstruction, with dilatation of the stomach and diffuse, distention of small intestinal loops down to the distal ileum, the transition point is not clearly delineated in this study. There is no significant change in the degree of distention when compared to the prior study. Patient is s/p PODS #2 lap cholecystectomy with small bowel resection w/ anastomosis and doing well. She is with a MLI, NG placed with green drainage. Endorses improvement in symptoms, minor tenderness at incision site. No bowel movement/flatus yet. Encouraged patient to ambulate. NG removed. Currently tolerating a full liquid diet. Plan is to AD per surgery. Hyponatremic this morning most likely secondary to hypovolemia with sodium level at 127, will initiate NS @ 100 with BMP Q4H. Urine cult with NGTD. - Review of Systems Constitutional: No Symptoms Eyes: No Symptoms Ears, Nose, & Throat: No Symptoms Respiratory: No Symptoms Cardiac: No Symptoms Abdominal/Gastrointestinal: Abdominal Pain Genitourinary Symptoms: No Symptoms (FC -to be removed today) Musculoskeletal: No Symptoms Skin: Other (MLI CDI) Neurological: No Symptoms Psychological: Anxiety Endocrine: No Symptoms Hematologic/Lymphatic: No Symptoms Immunological/Allergic: No Symptoms Objective Exam General Appearance: no apparent distress Neurologic Exam: alert, oriented x 3, cooperative Skin Exam: normal color, other (MLI with preston, open to air, CDI) Eye Exam: PERRL Ears, Nose, Throat Exam: normal ENT inspection Neck Exam: normal inspection Respiratory Exam: normal breath sounds, lungs clear Cardiovascular Exam: regular rate/rhythm, normal heart sounds Gastrointestinal/Abdomen Exam: soft, tenderness (to incision site), other (bowel sounds hypoactive x 4 quads) Extremity Exam: normal inspection OBJECTIVE DATA Vital Signs: Vital Signs - 24 hr Temp Pulse Resp BP Pulse Ox 02/05/23 03:00 99.5 F 105 H 18 118/59 96 02/04/23 23:00 99.0 F 117 H 18 118/61 91 L 02/04/23 22:17 93 H 16 02/04/23 19:00 99.0 F 117 H 18 118/61 91 L 02/04/23 14:21 59 L 16 128/82 96 02/04/23 11:39 97.8 F 111 H 16 121/76 92 L 02/04/23 07:27 97.6 F 109 H 16 121/65 92 L Pain Assessment - Last Documented Pain Intensity 10 Pain Scale Used 0-10 Pain Scale Intake and Output: Intake & Output 02/02/23 02/03/23 02/04/23 02/05/23 11:59 11:59 11:59 11:59 Intake Total 4379 2536 2344 4739 Output Total 1350 4900 300 950 Balance 3029 -7572 5820 6719 Weight 97.9 kg 97.8 kg 97.8 kg 97.8 kg Lab Results: Lab Results-Last 24 Hours 02/04/23 02/05/23 Range/Units 04:30 04:25 WBC 14.8 H (4.0-10.5) x10^3/uL RBC 3.40 L (4.1-5.4) x10^6/uL Hgb 9.9 L (12.0-16.0) g/dL Hct 30.2 L (35-47) % MCV 88.8 (78-100) fL MCH 29.1 (26-32) pg MCHC 32.8 (32-36) g/dL RDW 13.2 (11.5-14.0) % Plt Count 445 (150-450) x10^3/uL MPV 8.6 (7.5-11.0) fL Gran % 83.5 H (36.0-66.0) % Immature Gran % (Auto) 0.9 H (0.00-0.4) % Nucleat RBC Rel Count 0.0 (0.00-0.1) % Eos # (Auto) 0.13 (0-0.5) x10^3/uL Immature Gran # (Auto) 0.14 H (0.00-0.03) x10^3u/L Absolute Lymphs (auto) 0.78 L (1.0-4.6) x10^3/uL Absolute Monos (auto) 1.37 H (0.0-1.3) x10^3/uL Absolute Nucleated RBC 0.00 (0.00-0.01) x10^3u/L Lymphocytes % 5.3 L (24.0-44.0) % Monocytes % 9.3 (0.0-12.0) % Eosinophils % 0.9 (0.00-5.0) % Basophils % 0.1 (0.0-0.4) % Absolute Granulocytes 12.33 H (1.4-6.9) x10^3/uL Basophils # 0.02 (0-0.4) x10^3/uL Albumin 2.9 L (3.5-5.0) g/dL Radiology Exams: Radiology Procedures Category Date Time Status CHEST 1 VIEW (PORTABLE) Stat Exams 02/03/23 11:24 Completed Multi-Disciplinary Progress Notes: Multi-Disciplinary Progress Notes 02/04/23 10:43 Case Management Note by Marleni Hu PATIENT IN SIGNIFICANT PAIN AT THIS TIME- WILL DEFER ANY FURTHER DC PLANNING TODAY. DID S/W PATIENT ABOUT WALKER- SHE REPORTS HER DAUGHTER DID NOT PICK ONE UP AT [facility] SHE WAS INSTRUCTED. HER MOTHER IN ROOM REPORTS SHE HAS ONE PATIENT CAN BORROW. Initialized on 02/04/23 10:43 - END OF NOTE Assessment/Plan (1) SBO (small bowel obstruction) Current Visit: Yes Status: Acute Assessment & Plan: -As noted on Ct imaging without improvement with conservative treatment -Continue with bowel rest -Continue to monitor renal/lytes daily -Surgical consult, most likely surgery today -anti-emetics for N/V -Failed bowel prep, no BM/flatus 02/04: -S/P exp lab with small bowel resection w/anaostomosis -Continue cefoxitin due to small perf -Continue dressing changes PRN -AD per surgery D/C pending surg recs 02/05: -Pods #2 doing well, MLI CDI, open to air -Encourage ambulation -NG removed -Tolerating FLD, will advance per surgery recs -No BM or flatus Code(s): K56.609 - UNSP INTESTNL OBST, UNSP TO PARTIAL VERSUS COMPLETE OBST (2) Anxiety and depression Current Visit: Yes Status: Acute Assessment & Plan: -currently not taking any home meds - Will need to f/u with mental health and PCP OP. 02/01 - 1 time dose of Ativan 0.5mg - for anxiety - Case management working with pt for OP services 02/02: -Will add ativan 0.25mg Q4H for anxiety/N/V Code(s): F41.9 - ANXIETY DISORDER, UNSPECIFIED; F32.A - DEPRESSION, UNSPECIFIED (3) Hypocalcemia Current Visit: Yes Status: Acute Assessment & Plan: -labs reviewed, calcium at 7.8, corrected calcium at 8.3, continue to monitor 02/05: -Correct pasquale wnl Code(s): E83.51 - HYPOCALCEMIA (4) Hypercalcemia Current Visit: Yes Status: Resolved Assessment & Plan: -Ca 10.5 - mildly elevated, and could be due to dehydration. IVF should help, monitor level. I do not think we need any more work-up for this mildly elevated calcium 01/31 - Ca+ 8.6 resolved Code(s): E83.52 - HYPERCALCEMIA (5) Hyponatremia Current Visit: Yes Status: Acute Assessment & Plan: -sodium levels at 127 this morning, will change IVF to NS,patient now on full liquid diet -BMP q 4H Code(s): E87.1 - HYPO-OSMOLALITY AND HYPONATREMIA (6) Hypokalemia Current Visit: Yes Status: Acute Assessment & Plan: -Potassium level at 3.4 today, will replenish -add mg level 02/04: -resolved Code(s): E87.6 - HYPOKALEMIA (7) Leukocytosis Current Visit: Yes Status: Resolved Assessment & Plan: WBC 17.8 - stress response + UTI. Treating these and monitoring WBC trend 01/31 - improving WBC 11.2 02/01 - resolved WBC 6.8 02/02 - WBC 12.6- stress response 02/03: -Resolved 02/05: -Could be reactive from surgery, patient has been on IV abx, will continue to monitor Code(s): D72.829 - ELEVATED WHITE BLOOD CELL COUNT, UNSPECIFIED (8) Reactive thrombocytosis Current Visit: Yes Status: Acute Assessment & Plan: lt 717 - a reactive process, simply monitor 01/31 - Improving, Plt 509 02/01 - Platelet count 406 WNL - resolved Code(s): D75.838 - OTHER THROMBOCYTOSIS (9) Abdominal pain Current Visit: Yes Status: Acute Assessment & Plan: -Secondary to SBO, see SBO VTE:lovenox PPI: Protonix Dispo: Pending surgery recs Code(s): R10.9 - UNSPECIFIED ABDOMINAL PAIN
[2023-02-05] MEDS ORDERED: DEXTROSE 5% -NACL 0.9% 1000 ML + KCl 20 MEQ 1,000 ML IV SCH (06:00)
[2023-02-05] MEDS: Sodium Chloride 0.9% 1000 ML 1,000 ML IV SCH ×3 (07:38→17:09)
[2023-02-05] MEDS: NORCO 5/325 MG PO PRN ×4 (08:42→22:36)
[2023-02-05] MEDS: ENOXAPARIN SODIUM SQ SCH (09:20)
[2023-02-05] MEDS: Mylicon 80MG PO PRN ×2 (09:20→19:56)
[2023-02-05] MEDS: PROTONIX 40 MG IV IV SCH (09:20)
[2023-02-05] MEDS: NEURONTIN PO SCH ×8 (10:07→22:36)
[2023-02-05] MEDS: VITAMIN D PO SCH (10:09)
[2023-02-05] MEDS: Pepcid 20 MG PO SCH ×2 (10:09→22:36)
[2023-02-05 11:27] LABS: ANION GAP 11.9 MEQ/L (5-15); BLOOD UREA NITROGEN 10 mg/dL (7-17); CHLORIDE 96 mmol/L (98-107); Carbon Dioxide 26 mmol/L (22-30); Creatinine 1 0.62 mg/dL (0.52-1.04); EST GLOMERULAR FILTRATION RATE > 60.0 ML/MIN; Glucose 115 mg/dL (74-106); Potassium 3.6 mmol/L (3.5-5.1); SODIUM 130 mmol/L (137-145)
--- NOTE | 2023-02-05 12:19 | XRAY ---
Indication: Postop pain. Elevated WBC. Comparison: February 03, 2023 Portable chest demonstrates new mild right hemidiaphragm elevation with adjacent subsegmental atelectasis. Remaining heart and lungs unremarkable. Bony thorax intact.
[2023-02-05] MEDS: Zofran 4 MG/2 ML VIAL IV PRN (12:56)
[2023-02-05 13:19] LABS: Appearance Clear (Clear); Bacteria None Seen /HPF (None Seen); Bilirubin Negative (Negative); Blood Moderate (Negative); Epithelial Cells Few /HPF (None Seen); Glucose, Urine Negative (Negative); Hyaline Casts NONE SEEN /LPF (0-2); Ketones Negative (Negative); Leukocyte Esterase Trace (Negative); Nitrite Negative (Negative); Protein,Urine Dip Trace (Negative); Urobilinogen 0.2 mg/dL (0.2)
[2023-02-05 13:38] LABS: ADD URINE CULTURE? NO (NO)
[2023-02-05 15:31] LABS: ANION GAP 11.3 MEQ/L (5-15); BLOOD UREA NITROGEN 8 mg/dL (7-17); CHLORIDE 98 mmol/L (98-107); Calcium 8.1 mg/dL (8.4-10.2); Carbon Dioxide 25 mmol/L (22-30); Creatinine 1 0.63 mg/dL (0.52-1.04); EST GLOMERULAR FILTRATION RATE > 60.0 ML/MIN; Glucose 113 mg/dL (74-106); Potassium 4.3 mmol/L (3.5-5.1); SODIUM 130 mmol/L (137-145)
[2023-02-05] MEDS: Compazine 10 MG/2 ML IV PRN (15:38)
[2023-02-05] MEDS ORDERED: Dulcolax 10 MG SUPP PR ONE (18:16)
[2023-02-05 19:44] LABS: ANION GAP 9.3 MEQ/L (5-15); BLOOD UREA NITROGEN 8 mg/dL (7-17); CHLORIDE 99 mmol/L (98-107); Calcium 7.9 mg/dL (8.4-10.2); Carbon Dioxide 26 mmol/L (22-30); Creatinine 1 0.64 mg/dL (0.52-1.04); EST GLOMERULAR FILTRATION RATE > 60.0 ML/MIN; Glucose 105 mg/dL (74-106); Potassium 3.6 mmol/L (3.5-5.1); SODIUM 131 mmol/L (137-145)
[2023-02-05] MEDS: Ativan 2 MG/1 ML VIAL IV PRN (22:44)
[2023-02-06] MEDS: Sodium Chloride 0.9% 1000 ML 1,000 ML IV SCH ×2 (03:14→14:16)
[2023-02-06 04:41] LABS: Absolute Neutrophil Ct (ANC) 12.38 x10^3/uL (1.4-6.9); BASOPHIL % 0.2 % (0.0-0.4); Basophil (Absolute #) 0.03 x10^3/uL (0-0.4); Eosinophil % 1.3 % (0.00-5.0); Eosinophil (Absolute #) 0.19 x10^3/uL (0-0.5); Hematocrit 26.2 % (35-47); Hemoglobin 8.5 g/dL (12.0-16.0); IMMATURE GRAN # 0.13 x10^3u/L (0.00-0.03); IMMATURE GRAN % 0.9 % (0.00-0.4); Lymphocytes % 6.1 % (24.0-44.0); Mean Cell Volume 89.1 fL (78-100); Mean Corpuscular Hemoglobin 28.9 pg (26-32); Mean Corpuscular Hgb Concent. 32.4 g/dL (32-36); Mean Platelet Volume 8.5 fL (7.5-11.0); Monocyte (Absolute #) 1.23 x10^3/uL (0.0-1.3); Monocytes % 8.3 % (0.0-12.0); Neutrophil % 83.2 % (36.0-66.0); Platelet Count 400 x10^3/uL (150-450); Red Blood Count 2.94 x10^6/uL (4.1-5.4); Red Cell Distribution Width 13.6 % (11.5-14.0); White Blood Count 14.9 x10^3/uL (4.0-10.5)
[2023-02-06] MEDS: NORCO 5/325 MG PO PRN ×4 (04:54→21:06)
[2023-02-06 05:00] LABS: ALBUMIN 2.6 g/dL (3.5-5.0); ALKALINE PHOSPHATASE 72 U/L (38-126); ANION GAP 11.6 MEQ/L (5-15); BLOOD UREA NITROGEN 7 mg/dL (7-17); CHLORIDE 101 mmol/L (98-107); Calcium 7.8 mg/dL (8.4-10.2); Carbon Dioxide 23 mmol/L (22-30); Creatinine 1 0.59 mg/dL (0.52-1.04); EST GLOMERULAR FILTRATION RATE > 60.0 ML/MIN; Glucose 108 mg/dL (74-106); Potassium 3.6 mmol/L (3.5-5.1); SGOT/AST 17 U/L (14-36); SGPT/ALT 14 U/L (0-35); SODIUM 131 mmol/L (137-145); Total Protein 5.2 g/dL (6.3-8.2)
[2023-02-06] MEDS: PROTONIX 40 MG IV IV SCH (08:51)
[2023-02-06] MEDS: Pepcid 20 MG PO SCH ×2 (08:51→21:06)
[2023-02-06] MEDS: NEURONTIN PO SCH ×3 (08:52→21:06)
[2023-02-06] MEDS: VITAMIN D PO SCH (08:52)
[2023-02-06] MEDS: ENOXAPARIN SODIUM SQ SCH (08:52)
--- NOTE | 2023-02-06 13:05 | PCM.NOTE ---
Date and Time: 02/06/23 1022 Subjective Assessment: is a 42 year old female with hx of anxiety/depression presented to ER with c/o severe, generalized abdominal pain started earlier this week. She went to [facility] and was discharged home after pre-cursory work-up that included labs and plain xray. 2 days ago , she came back with worsening of this pain - cramping and sharp in nature, severe - 9 out of 10 - associates with nausea and vomiting. Denies diarrhea, fever, chills, rigors. Denies flank pain, dysuria, hematuria. No chest pain nor SOB. She has had cholecystectomy and appendectomy.CT scan of abd done here shows distal small bowel distention/air - > admitted with SBO. Surgery consulted and pt was initially treated conser vatively with NG on LIS with moderate amounts of dark brown output. UTI and receiving rocephin. Most recent CT showing Distal small bowel obstruction, with dilatation of the stomach and diffuse, distention of small intestinal loops down to the distal ileum, the transition point is not clearly delineated in this study. There is no significant change in the degree of distention when compared to the prior study. Patient is s/p PODS #3 lap cholecystectomy with small bowel resection w/ anastomosis and doing well. She is with a MLI, Endorses improvement in symptoms, minor tenderness at incision site. Multiple bowel movements overnight, tolerating a regular diet. Encouraged patient to ambulate. Discussed WBC elevation, no localizing symptoms. Possibly nonspecific. U/A and CXR negative. Hgb levels decreased which could be due to recent blood loss from surgery, will continue to monitor. Hyponatremia corrected. - Review of Systems Constitutional: No Symptoms Eyes: No Symptoms Ears, Nose, & Throat: No Symptoms Respiratory: No Symptoms Cardiac: No Symptoms Abdominal/Gastrointestinal: Abdominal Pain (at incision site) Genitourinary Symptoms: No Symptoms Musculoskeletal: Back Pain (chronic) Skin: Other (MLI with stables/ CDI) Neurological: No Symptoms Psychological: No Symptoms Endocrine: No Symptoms Objective Exam General Appearance: no apparent distress Neurologic Exam: alert, oriented x 3, cooperative Skin Exam: normal color Eye Exam: PERRL Ears, Nose, Throat Exam: normal ENT inspection Neck Exam: normal inspection Respiratory Exam: normal breath sounds, lungs clear Cardiovascular Exam: regular rate/rhythm, normal heart sounds Gastrointestinal/Abdomen Exam: soft, normal bowel sounds, distention, other (MLI with stables, no erythema, CDI, no drainage) Extremity Exam: normal inspection Back Exam: normal inspection OBJECTIVE DATA Vital Signs: Vital Signs - 24 hr Temp Pulse Resp BP Pulse Ox 02/06/23 11:33 97.5 F 95 H 17 120/64 95 02/06/23 06:53 97.3 F 94 H 17 116/72 99 02/06/23 04:00 98.9 F 101 H 20 128/61 96 02/06/23 00:00 98.9 F 94 H 20 99 02/05/23 20:05 98 H 24 96 02/05/23 19:03 98.9 F 95 H 24 125/58 99 02/05/23 16:00 97.8 F 107 H 18 111/57 97 02/05/23 15:53 99 02/05/23 14:04 99 H 12 99 Pain Assessment - Last Documented Pain Intensity 10 Pain Scale Used 0-10 Pain Scale Intake and Output: Intake & Output 02/04/23 02/05/23 02/06/23 02/07/23 11:59 11:59 11:59 11:59 Intake Total 2344 5019 840 Output Total 300 1550 1100 Balance 2044 5469 -260 Weight 97.8 kg 97.9 kg 100.2 kg Lab Results: Lab Results-Last 24 Hours 02/05/23 02/05/23 02/05/23 Range/Units 13:05 15:18 19:29 WBC (4.0-10.5) x10^3/uL RBC (4.1-5.4) x10^6/uL Hgb (12.0-16.0) g/dL Hct (35-47) % MCV (78-100) fL MCH (26-32) pg MCHC (32-36) g/dL RDW (11.5-14.0) % Plt Count (150-450) x10^3/uL MPV (7.5-11.0) fL Gran % (36.0-66.0) % Immature Gran % (Auto) (0.00-0.4) % Nucleat RBC Rel Count (0.00-0.1) % Eos # (Auto) (0-0.5) x10^3/uL Immature Gran # (Auto) (0.00-0.03) x10^3u/L Absolute Lymphs (auto) (1.0-4.6) x10^3/uL Absolute Monos (auto) (0.0-1.3) x10^3/uL Absolute Nucleated RBC (0.00-0.01) x10^3u/L Lymphocytes % (24.0-44.0) % Monocytes % (0.0-12.0) % Eosinophils % (0.00-5.0) % Basophils % (0.0-0.4) % Absolute Granulocytes (1.4-6.9) x10^3/uL Basophils # (0-0.4) x10^3/uL Sodium 130 L 131 L (137-145) mmol/L Potassium 4.3 3.6 (3.5-5.1) mmol/L Chloride 98 99 (98-107) mmol/L Carbon Dioxide 25 26 (22-30) mmol/L Anion Gap 11.3 9.3 (5-15) MEQ/L BUN 8 8 (7-17) mg/dL Creatinine 0.63 0.64 (0.52-1.04) mg/dL Estimated GFR > 60.0 > 60.0 ML/MIN Glucose 113 H 105 (74-106) mg/dL Calcium 8.1 L 7.9 L (8.4-10.2) mg/dL Total Bilirubin (0.2-1.3) mg/dL AST (14-36) U/L ALT (0-35) U/L Alkaline Phosphatase (38-126) U/L Serum Total Protein (6.3-8.2) g/dL Albumin (3.5-5.0) g/dL Urine Color Yellow (Yellow) Urine Appearance Clear (Clear) Urine pH 7.0 (4.6-8.0) Ur Specific [place] 1.010 (1.005-1.030) Urine Protein Trace A (Negative) Urine Glucose (UA) Negative (Negative) mg/dL Urine Ketones Negative (Negative) Urine Blood Moderate A (Negative) Urine Nitrite Negative (Negative) Urine Bilirubin Negative (Negative) Urine Urobilinogen 0.2 (0.2) mg/dL Ur Leukocyte Esterase Trace A (Negative) U Hyaline Cast (Auto) NONE SEEN (0-2) /LPF Urine Microscopic RBC 3-5 (0-5) /HPF Urine Microscopic WBC 3-5 (0-5) /HPF Ur Epithelial Cells Few (None Seen) /HPF Urine Bacteria None Seen (None Seen) /HPF Urine Culture Reflexed NO (NO) 02/06/23 02/06/23 Range/Units 04:31 04:31 WBC 14.9 H (4.0-10.5) x10^3/uL RBC 2.94 L (4.1-5.4) x10^6/uL Hgb 8.5 L (12.0-16.0) g/dL Hct 26.2 L (35-47) % MCV 89.1 (78-100) fL MCH 28.9 (26-32) pg MCHC 32.4 (32-36) g/dL RDW 13.6 (11.5-14.0) % Plt Count 400 (150-450) x10^3/uL MPV 8.5 (7.5-11.0) fL Gran % 83.2 H (36.0-66.0) % Immature Gran % (Auto) 0.9 H (0.00-0.4) % Nucleat RBC Rel Count 0.0 (0.00-0.1) % Eos # (Auto) 0.19 (0-0.5) x10^3/uL Immature Gran # (Auto) 0.13 H (0.00-0.03) x10^3u/L Absolute Lymphs (auto) 0.90 L (1.0-4.6) x10^3/uL Absolute Monos (auto) 1.23 (0.0-1.3) x10^3/uL Absolute Nucleated RBC 0.00 (0.00-0.01) x10^3u/L Lymphocytes % 6.1 L (24.0-44.0) % Monocytes % 8.3 (0.0-12.0) % Eosinophils % 1.3 (0.00-5.0) % Basophils % 0.2 (0.0-0.4) % Absolute Granulocytes 12.38 H (1.4-6.9) x10^3/uL Basophils # 0.03 (0-0.4) x10^3/uL Sodium 131 L (137-145) mmol/L Potassium 3.6 (3.5-5.1) mmol/L Chloride 101 (98-107) mmol/L Carbon Dioxide 23 (22-30) mmol/L Anion Gap 11.6 (5-15) MEQ/L BUN 7 (7-17) mg/dL Creatinine 0.59 (0.52-1.04) mg/dL Estimated GFR > 60.0 ML/MIN Glucose 108 H (74-106) mg/dL Calcium 7.8 L (8.4-10.2) mg/dL Total Bilirubin 0.40 (0.2-1.3) mg/dL AST 17 (14-36) U/L ALT 14 (0-35) U/L Alkaline Phosphatase 72 (38-126) U/L Serum Total Protein 5.2 L (6.3-8.2) g/dL Albumin 2.6 L (3.5-5.0) g/dL Urine Color (Yellow) Urine Appearance (Clear) Urine pH (4.6-8.0) Ur Specific [place] (1.005-1.030) Urine Protein (Negative) Urine Glucose (UA) (Negative) mg/dL Urine Ketones (Negative) Urine Blood (Negative) Urine Nitrite (Negative) Urine Bilirubin (Negative) Urine Urobilinogen (0.2) mg/dL Ur Leukocyte Esterase (Negative) U Hyaline Cast (Auto) (0-2) /LPF Urine Microscopic RBC (0-5) /HPF Urine Microscopic WBC (0-5) /HPF Ur Epithelial Cells (None Seen) /HPF Urine Bacteria (None Seen) /HPF Urine Culture Reflexed (NO) Radiology Exams: Radiology Procedures Category Date Time Status CHEST 1 VIEW (PORTABLE) Urgent Exams 02/05/23 11:52 Completed Multi-Disciplinary Progress Notes: Multi-Disciplinary Progress Notes 02/06/23 10:15 Case Management Note by Rain Ward Addendum entered by Rain Ward RN 02/06/23 10:23: SPOKE WITH KENYETTA AT [facility] AND THEY HAVE ACCEPTED PATIENT. Original Note: REFERAAL REFAXED TO [facility]. THEY WILL NEED NOFITIFED AT TIME OF DC AT [phone]. THEY WILL NEED FAX THE DC INSTRUCTIONS, DC MED LIST, AND DC SUMMARY ( IF AVAILABLE) TO [phone]. Initialized on 02/06/23 10:15 - END OF NOTE 02/06/23 05:55 Respiratory Note by Radha,Alex MADE PT SDC ON HER I.S. SHE UNDERSTANDS USE AND WAS PULLING A VOLUME OF 1500- 2000. Initialized on 02/06/23 05:55 - END OF NOTE Assessment/Plan (1) SBO (small bowel obstruction) Current Visit: Yes Status: Acute Assessment & Plan: -As noted on Ct imaging without improvement with conservative treatment -Continue with bowel rest -Continue to monitor renal/lytes daily -Surgical consult, most likely surgery today -anti-emetics for N/V -Failed bowel prep, no BM/flatus 02/04: -S/P exp lab with small bowel resection w/anaostomosis -Continue cefoxitin due to small perf -Continue dressing changes PRN -AD per surgery D/C pending surg recs 02/05: -Pods #2 doing well, MLI CDI, open to air -Encourage ambulation -NG removed -Tolerating FLD, will advance per surgery recs -No BM or flatus 02/06: -PODS #3, doing well, bowel function has returned, passing flatus -Tolerating a full diet -Discharge per surgery recs Code(s): K56.609 - UNSP INTESTNL OBST, UNSP TO PARTIAL VERSUS COMPLETE OBST (2) Anxiety and depression Current Visit: Yes Status: Acute Assessment & Plan: -currently not taking any home meds - Will need to f/u with mental health and PCP OP. 02/01 - 1 time dose of Ativan 0.5mg - for anxiety - Case management working with pt for OP services 02/02: -Will add ativan 0.25mg Q4H for anxiety/N/V Code(s): F41.9 - ANXIETY DISORDER, UNSPECIFIED; F32.A - DEPRESSION, UNSPECIFIED (3) Hypocalcemia Current Visit: Yes Status: Acute Assessment & Plan: -labs reviewed, calcium at 7.8, corrected calcium at 8.3, continue to monitor 02/05: -Correct pasquale wnl Code(s): E83.51 - HYPOCALCEMIA (4) Hypercalcemia Current Visit: Yes Status: Resolved Assessment & Plan: -Ca 10.5 - mildly elevated, and could be due to dehydration. IVF should help, monitor level. I do not think we need any more work-up for this mildly elevated calcium 01/31 - Ca+ 8.6 resolved Code(s): E83.52 - HYPERCALCEMIA (5) Hyponatremia Current Visit: Yes Status: Acute Assessment & Plan: -sodium levels at 127 this morning, will change IVF to NS,patient now on full liquid diet -BMP q 4H 02/06: -improving, will continue to monitor, level at 131 Code(s): E87.1 - HYPO-OSMOLALITY AND HYPONATREMIA (6) Hypokalemia Current Visit: Yes Status: Acute Assessment & Plan: -Potassium level at 3.4 today, will replenish -add mg level 02/04: -resolved Code(s): E87.6 - HYPOKALEMIA (7) Leukocytosis Current Visit: Yes Status: Resolved Assessment & Plan: WBC 17.8 - stress response + UTI. Treating these and monitoring WBC trend 01/31 - improving WBC 11.2 02/01 - resolved WBC 6.8 02/02 - WBC 12.6- stress response 02/03: -Resolved 02/05: -Could be reactive from surgery, patient has been on IV abx, will continue to monitor Code(s): D72.829 - ELEVATED WHITE BLOOD CELL COUNT, UNSPECIFIED (8) Reactive thrombocytosis Current Visit: Yes Status: Acute Assessment & Plan: lt 717 - a reactive process, simply monitor 01/31 - Improving, Plt 509 02/01 - Platelet count 406 WNL - resolved Code(s): D75.838 - OTHER THROMBOCYTOSIS (9) Abdominal pain Current Visit: Yes Status: Acute Assessment & Plan: -Secondary to SBO, see SBO VTE:lovenox PPI: Protonix Dispo: Pending surgery recs Code(s): R10.9 - UNSPECIFIED ABDOMINAL PAIN
[2023-02-06 13:55] LABS: Hematocrit 27.3 % (35-47); Hemoglobin 8.7 g/dL (12.0-16.0)
[2023-02-06] MEDS: Ativan 2 MG/1 ML VIAL IV PRN ×2 (15:40→21:08)
[2023-02-06 19:42] LABS: Hematocrit 26.1 % (35-47); Hemoglobin 8.4 g/dL (12.0-16.0)
[2023-02-07 02:25] LABS: Absolute Neutrophil Ct (ANC) 9.71 x10^3/uL (1.4-6.9); BASOPHIL % 0.2 % (0.0-0.4); Basophil (Absolute #) 0.03 x10^3/uL (0-0.4); Eosinophil % 2.1 % (0.00-5.0); Eosinophil (Absolute #) 0.27 x10^3/uL (0-0.5); Hematocrit 24.7 % (35-47); IMMATURE GRAN % 0.8 % (0.00-0.4); Lymphocyte (Absolute #) 1.32 x10^3/uL (1.0-4.6); Lymphocytes % 10.3 % (24.0-44.0); Mean Cell Volume 89.2 fL (78-100); Mean Corpuscular Hemoglobin 28.9 pg (26-32); Mean Corpuscular Hgb Concent. 32.4 g/dL (32-36); Mean Platelet Volume 8.3 fL (7.5-11.0); Monocyte (Absolute #) 1.43 x10^3/uL (0.0-1.3); Monocytes % 11.1 % (0.0-12.0); Neutrophil % 75.5 % (36.0-66.0); Platelet Count 411 x10^3/uL (150-450); Red Blood Count 2.77 x10^6/uL (4.1-5.4); Red Cell Distribution Width 13.8 % (11.5-14.0); White Blood Count 12.9 x10^3/uL (4.0-10.5)
[2023-02-07 02:39] LABS: ALBUMIN 2.6 g/dL (3.5-5.0); ALKALINE PHOSPHATASE 70 U/L (38-126); ANION GAP 9.7 MEQ/L (5-15); BLOOD UREA NITROGEN 5 mg/dL (7-17); CHLORIDE 101 mmol/L (98-107); Calcium 7.7 mg/dL (8.4-10.2); Carbon Dioxide 25 mmol/L (22-30); Creatinine 1 0.54 mg/dL (0.52-1.04); EST GLOMERULAR FILTRATION RATE > 60.0 ML/MIN; Glucose 106 mg/dL (74-106); SGOT/AST 18 U/L (14-36); SGPT/ALT 15 U/L (0-35); SODIUM 133 mmol/L (137-145); Total Protein 5.4 g/dL (6.3-8.2)
[2023-02-07] MEDS ORDERED: POTASSIUM CHLORIDE 20 mEq IN WATER 100ML 20 MEQ/100 ML BAG IV ONE (02:59)
[2023-02-07] MEDS: Compazine 10 MG/2 ML IV PRN (03:48)
[2023-02-07] MEDS: NORCO 5/325 MG PO PRN ×5 (03:49→23:27)
[2023-02-07] MEDS: Ativan 2 MG/1 ML VIAL IV PRN ×4 (03:50→23:25)
[2023-02-07] MEDS ORDERED: MAGNESIUM SULF 2 G/50 ML BAG 2 GM/50 ML PIGGYBACK IV ONE (08:00)
[2023-02-07 08:04] LABS: Hematocrit 28.9 % (35-47); Hemoglobin 8.6 g/dL (12.0-16.0)
[2023-02-07] MEDS ORDERED: DICLOFENAC SODIUM TP SCH (10:00)
[2023-02-07] MEDS: ENOXAPARIN SODIUM SQ SCH (10:01)
[2023-02-07] MEDS: NEURONTIN PO SCH ×3 (10:01→22:00)
[2023-02-07] MEDS: VITAMIN D PO SCH (10:01)
[2023-02-07] MEDS: Pepcid 20 MG PO SCH ×2 (10:02→22:01)
[2023-02-07] MEDS: Protonix 40MG Tablet PO SCH (10:02)
[2023-02-07] MEDS: DICLOFENAC SODIUM TP SCH ×4 (11:06→22:27)
--- NOTE | 2023-02-07 11:08 | PCM.NOTE ---
Date and Time: 02/07/23 1102 Subjective Assessment: is a 42 year old female with hx of anxiety/depression presented to ER with c/o severe, generalized abdominal pain started earlier this week. She went to [facility] and was discharged home after pre-cursory work-up that included labs and plain xray. 2 days ago , she came back with worsening of this pain - cramping and sharp in nature, severe - 9 out of 10 - associates with nausea and vomiting. Denies diarrhea, fever, chills, rigors. Denies flank pain, dysuria, hematuria. No chest pain nor SOB. She has had cholecystectomy and appendectomy.CT scan of abd done here shows distal small bowel distention/air - > admitted with SBO. Surgery consulted and pt was initially treated conser vatively with NG on LIS with moderate amounts of dark brown output. UTI and receiving rocephin. Most recent CT showing Distal small bowel obstruction, with dilatation of the stomach and diffuse, distention of small intestinal loops down to the distal ileum, the transition point is not clearly delineated in this study. There is no significant change in the degree of distention when compared to the prior study. Patient is s/p PODS #4 exp lab with small bowel resection w/ anastomosis and doing well. She is with a MLI, Endorses improvement in symptoms, minor tenderness at incision site. Multiple bowel movements overnight, tolerating a regular diet although her appetite is somewhat poor. Encouraged patient to ambulate. Discussed WBC elevation now wnl no localizing symptoms. Possibly nonspecific. U/A and CXR negative. Hgb levels improving. Magnesium and potassium replenished this morning. Additionally patient had complaints of sciatica/ and left ankle pain this morning, requesting topical cream for pain relief. Possible discharge tomorrow. - Review of Systems Constitutional: No Symptoms Eyes: No Symptoms Ears, Nose, & Throat: No Symptoms Respiratory: No Symptoms Cardiac: No Symptoms Abdominal/Gastrointestinal: Diarrhea Genitourinary Symptoms: No Symptoms Musculoskeletal: Joint Pain, Other (sciatica pain) Skin: Other (MLI CDI) Neurological: No Symptoms Psychological: No Symptoms Endocrine: No Symptoms Hematologic/Lymphatic: No Symptoms Immunological/Allergic: No Symptoms Objective Exam General Appearance: no apparent distress Neurologic Exam: alert, oriented x 3, cooperative Skin Exam: normal color, other (MLI with stables/sutures, open to air CKI, no drainage/redness) Eye Exam: PERRL Ears, Nose, Throat Exam: normal ENT inspection Neck Exam: normal inspection Respiratory Exam: normal breath sounds, lungs clear Cardiovascular Exam: regular rate/rhythm, normal heart sounds Gastrointestinal/Abdomen Exam: soft, normal bowel sounds Extremity Exam: joint swelling Back Exam: normal inspection OBJECTIVE DATA Vital Signs: Vital Signs - 24 hr Temp Pulse Resp BP BP Pulse Ox 02/07/23 07:19 97.5 F 88 17 116/59 98 02/07/23 03:50 98.7 F 99 H 21 127/62 123/58 97 02/06/23 23:56 98.0 F 99 H 20 127/62 94 L 02/06/23 21:08 76 18 123/59 02/06/23 19:20 98.6 F 102 H 20 123/59 99 02/06/23 16:00 97.3 F 104 H 17 105/57 96 02/06/23 11:33 97.5 F 95 H 17 120/64 95 Pain Assessment - Last Documented Pain Intensity 10 Pain Scale Used 0-10 Pain Scale Intake and Output: Intake & Output 02/04/23 02/05/23 02/06/23 02/07/23 11:59 11:59 11:59 11:59 Intake Total 2344 5019 840 1640 Output Total 300 1550 1100 Balance 2044 5519 -260 1640 Weight 97.8 kg 97.9 kg 100.2 kg Lab Results: Lab Results-Last 24 Hours 02/06/23 02/06/23 02/07/23 Range/Units 13:50 19:40 02:21 WBC 12.9 H (4.0-10.5) x10^3/uL RBC 2.77 L (4.1-5.4) x10^6/uL Hgb 8.7 L 8.4 L 8.0 L (12.0-16.0) g/dL Hct 27.3 L 26.1 L 24.7 L (35-47) % MCV 89.2 (78-100) fL MCH 28.9 (26-32) pg MCHC 32.4 (32-36) g/dL RDW 13.8 (11.5-14.0) % Plt Count 411 (150-450) x10^3/uL MPV 8.3 (7.5-11.0) fL Gran % 75.5 H (36.0-66.0) % Immature Gran % (Auto) 0.8 H (0.00-0.4) % Nucleat RBC Rel Count 0.0 (0.00-0.1) % Eos # (Auto) 0.27 (0-0.5) x10^3/uL Immature Gran # (Auto) 0.10 H (0.00-0.03) x10^3u/L Absolute Lymphs (auto) 1.32 (1.0-4.6) x10^3/uL Absolute Monos (auto) 1.43 H (0.0-1.3) x10^3/uL Absolute Nucleated RBC 0.00 (0.00-0.01) x10^3u/L Lymphocytes % 10.3 L (24.0-44.0) % Monocytes % 11.1 (0.0-12.0) % Eosinophils % 2.1 (0.00-5.0) % Basophils % 0.2 (0.0-0.4) % Absolute Granulocytes 9.71 H (1.4-6.9) x10^3/uL Basophils # 0.03 (0-0.4) x10^3/uL Sodium (137-145) mmol/L Potassium (3.5-5.1) mmol/L Chloride (98-107) mmol/L Carbon Dioxide (22-30) mmol/L Anion Gap (5-15) MEQ/L BUN (7-17) mg/dL Creatinine (0.52-1.04) mg/dL Estimated GFR ML/MIN Glucose (74-106) mg/dL Calcium (8.4-10.2) mg/dL Magnesium (1.6-2.3) mg/dL Total Bilirubin (0.2-1.3) mg/dL AST (14-36) U/L ALT (0-35) U/L Alkaline Phosphatase (38-126) U/L Serum Total Protein (6.3-8.2) g/dL Albumin (3.5-5.0) g/dL 02/07/23 02/07/23 02/07/23 Range/Units 02:21 02:47 07:11 WBC (4.0-10.5) x10^3/uL RBC (4.1-5.4) x10^6/uL Hgb 8.6 L (12.0-16.0) g/dL Hct 28.9 L (35-47) % MCV (78-100) fL MCH (26-32) pg MCHC (32-36) g/dL RDW (11.5-14.0) % Plt Count (150-450) x10^3/uL MPV (7.5-11.0) fL Gran % (36.0-66.0) % Immature Gran % (Auto) (0.00-0.4) % Nucleat RBC Rel Count (0.00-0.1) % Eos # (Auto) (0-0.5) x10^3/uL Immature Gran # (Auto) (0.00-0.03) x10^3u/L Absolute Lymphs (auto) (1.0-4.6) x10^3/uL Absolute Monos (auto) (0.0-1.3) x10^3/uL Absolute Nucleated RBC (0.00-0.01) x10^3u/L Lymphocytes % (24.0-44.0) % Monocytes % (0.0-12.0) % Eosinophils % (0.00-5.0) % Basophils % (0.0-0.4) % Absolute Granulocytes (1.4-6.9) x10^3/uL Basophils # (0-0.4) x10^3/uL Sodium 133 L (137-145) mmol/L Potassium 3.0 L* (3.5-5.1) mmol/L Chloride 101 (98-107) mmol/L Carbon Dioxide 25 (22-30) mmol/L Anion Gap 9.7 (5-15) MEQ/L BUN 5 L (7-17) mg/dL Creatinine 0.54 (0.52-1.04) mg/dL Estimated GFR > 60.0 ML/MIN Glucose 106 (74-106) mg/dL Calcium 7.7 L (8.4-10.2) mg/dL Magnesium 1.3 L (1.6-2.3) mg/dL Total Bilirubin 0.30 (0.2-1.3) mg/dL AST 18 (14-36) U/L ALT 15 (0-35) U/L Alkaline Phosphatase 70 (38-126) U/L Serum Total Protein 5.4 L (6.3-8.2) g/dL Albumin 2.6 L (3.5-5.0) g/dL Radiology Exams: Radiology Procedures Category Date Time Status CHEST 1 VIEW (PORTABLE) Urgent Exams 02/05/23 11:52 Completed Multi-Disciplinary Progress Notes: Multi-Disciplinary Progress Notes 02/07/23 10:38 Case Management Note by Marleni Hu S/W PATIENT ABOUT PLANS FOR DC. SHE PLANS TO DC HOME WITH HER DAUGHTER TO ASSIST HER. SEVERAL REFERRALS HAVE BEEN MADE TO VARIOUS AGENCIES TO GET HER HELP AT HOME. THE [facility] HAS BEEN SET UP. PATIENT REPORTS SHE NOW HAS A WALKER AND SHOWER CHAIR AT HOME WELL. NO OTHER NEW NEEDS IDENTIFIED AT THIS TIME Initialized on 02/07/23 10:38 - END OF NOTE 02/06/23 15:05 Nutrition Note by Rosanne Fuentes F/U Note: Diet resumed to soft with 50-100% po intake. adm wt 97.8kg; current wt 100.2kg. Labs 02/06= Na 131, glu 108, alb 2.6, hgb 8.7, hct 27.3. goals: #1)increase po intake >=75% Will con't to monitor and f/u prn. TELIZABETH Lehman Initialized on 02/06/23 15:05 - END OF NOTE Assessment/Plan (1) SBO (small bowel obstruction) Current Visit: Yes Status: Acute Assessment & Plan: -As noted on Ct imaging without improvement with conservative treatment -Continue with bowel rest -Continue to monitor renal/lytes daily -Surgical consult, most likely surgery today -anti-emetics for N/V -Failed bowel prep, no BM/flatus 02/04: -S/P exp lab with small bowel resection w/anaostomosis -Continue cefoxitin due to small perf -Continue dressing changes PRN -AD per surgery D/C pending surg recs 02/05: -Pods #2 doing well, MLI CDI, open to air -Encourage ambulation -NG removed -Tolerating FLD, will advance per surgery recs -No BM or flatus 02/06: -PODS #3, doing well, bowel function has returned, passing flatus -Tolerating a full diet -Discharge per surgery recs 02/07: -Cleared by surgery, possible d/c tomorrow once diarrhea under control Code(s): K56.609 - UNSP INTESTNL OBST, UNSP TO PARTIAL VERSUS COMPLETE OBST (2) Hypomagnesemia Current Visit: Yes Status: Acute Assessment & Plan: -Labs reviewed, mg at 1.3, will replenish Code(s): E83.42 - HYPOMAGNESEMIA (3) Anxiety and depression Current Visit: Yes Status: Acute Assessment & Plan: -currently not taking any home meds - Will need to f/u with mental health and PCP OP. 02/01 - 1 time dose of Ativan 0.5mg - for anxiety - Case management working with pt for OP services 02/02: -Will add ativan 0.25mg Q4H for anxiety/N/V Code(s): F41.9 - ANXIETY DISORDER, UNSPECIFIED; F32.A - DEPRESSION, UNSPECIFIED (4) Hypocalcemia Current Visit: Yes Status: Acute Assessment & Plan: -labs reviewed, calcium at 7.8, corrected calcium at 8.3, continue to monitor 02/05: -Correct pasquale wnl Code(s): E83.51 - HYPOCALCEMIA (5) Hypercalcemia Current Visit: Yes Status: Resolved Assessment & Plan: -Ca 10.5 - mildly elevated, and could be due to dehydration. IVF should help, monitor level. I do not think we need any more work-up for this mildly elevated calcium 01/31 - Ca+ 8.6 resolved Code(s): E83.52 - HYPERCALCEMIA (6) Hyponatremia Current Visit: Yes Status: Acute Assessment & Plan: -sodium levels at 127 this morning, will change IVF to NS,patient now on full liquid diet -BMP q 4H 02/06: -improving, will continue to monitor, level at 131 Code(s): E87.1 - HYPO-OSMOLALITY AND HYPONATREMIA (7) Hypokalemia Current Visit: Yes Status: Acute Assessment & Plan: -Potassium level at 3.4 today, will replenish -add mg level 02/04: -resolved 02/07: -Hypokalemic this morning, replenished, will continue to monitor Code(s): E87.6 - HYPOKALEMIA (8) Leukocytosis Current Visit: Yes Status: Resolved Assessment & Plan: WBC 17.8 - stress response + UTI. Treating these and monitoring WBC trend 01/31 - improving WBC 11.2 02/01 - resolved WBC 6.8 02/02 - WBC 12.6- stress response 02/03: -Resolved 02/05: -Could be reactive from surgery, patient has been on IV abx, will continue to monitor 02/07: -Downtrending, now at 12.9 (14.9) Code(s): D72.829 - ELEVATED WHITE BLOOD CELL COUNT, UNSPECIFIED (9) Reactive thrombocytosis Current Visit: Yes Status: Acute Assessment & Plan: -resolved Code(s): D75.838 - OTHER THROMBOCYTOSIS (10) Abdominal pain Current Visit: Yes Status: Acute Assessment & Plan: -Secondary to SBO, see SBO Code(s): R10.9 - UNSPECIFIED ABDOMINAL PAIN
[2023-02-07] MEDS: Sodium Chloride 0.9% 1000 ML 1,000 ML IV SCH (17:08)
[2023-02-07] MEDS: Mylicon 80MG PO PRN (19:15)
[2023-02-08] MEDS: Hydromorphone 1 mg/ml Injection IV PRN ×2 (03:26→09:21)
[2023-02-08 05:37] LABS: Absolute Neutrophil Ct (ANC) 10.36 x10^3/uL (1.4-6.9); BASOPHIL % 0.4 % (0.0-0.4); Basophil (Absolute #) 0.05 x10^3/uL (0-0.4); Eosinophil % 2.2 % (0.00-5.0); Hematocrit 23.9 % (35-47); Hemoglobin 7.6 g/dL (12.0-16.0); IMMATURE GRAN # 0.19 x10^3u/L (0.00-0.03); IMMATURE GRAN % 1.4 % (0.00-0.4); Lymphocyte (Absolute #) 1.47 x10^3/uL (1.0-4.6); Lymphocytes % 10.7 % (24.0-44.0); Mean Cell Volume 88.5 fL (78-100); Mean Corpuscular Hemoglobin 28.1 pg (26-32); Mean Corpuscular Hgb Concent. 31.8 g/dL (32-36); Mean Platelet Volume 8.2 fL (7.5-11.0); Monocyte (Absolute #) 1.34 x10^3/uL (0.0-1.3); Monocytes % 9.8 % (0.0-12.0); Neutrophil % 75.5 % (36.0-66.0); Platelet Count 473 x10^3/uL (150-450); Red Cell Distribution Width 14.2 % (11.5-14.0); White Blood Count 13.7 x10^3/uL (4.0-10.5)
[2023-02-08 05:54] LABS: ALBUMIN 2.7 g/dL (3.5-5.0); ALKALINE PHOSPHATASE 69 U/L (38-126); ANION GAP 13.1 MEQ/L (5-15); BLOOD UREA NITROGEN 3 mg/dL (7-17); CHLORIDE 103 mmol/L (98-107); Calcium 7.6 mg/dL (8.4-10.2); Carbon Dioxide 23 mmol/L (22-30); Creatinine 1 0.54 mg/dL (0.52-1.04); EST GLOMERULAR FILTRATION RATE > 60.0 ML/MIN; Glucose 119 mg/dL (74-106); MAGNESIUM 1.7 mg/dL (1.6-2.3); SGOT/AST 18 U/L (14-36); SGPT/ALT 17 U/L (0-35); SODIUM 136 mmol/L (137-145); Total Protein 5.3 g/dL (6.3-8.2)
[2023-02-08 06:04] LABS: Potassium 2.8 mmol/L (3.5-5.1)
[2023-02-08] MEDS: POTASSIUM CHLORIDE 20 mEq IN WATER 100ML 100 ML IV SCH ×2 (07:21→09:19)
[2023-02-08] MEDS: Klor Con PO SCH ×4 (07:21→12:00)
[2023-02-08] MEDS: DICLOFENAC SODIUM TP SCH (07:26)
[2023-02-08] MEDS: NORCO 5/325 MG PO PRN (07:42)
[2023-02-08 08:12] VITALS: BP 118/57; PULSE 75; RESP 16; TEMP 97.5; O2SAT 98
[2023-02-08] MEDS: Protonix 40MG Tablet PO SCH (09:19)
[2023-02-08] MEDS: VITAMIN D PO SCH (09:19)
[2023-02-08] MEDS: ENOXAPARIN SODIUM SQ SCH (09:19)
[2023-02-08] MEDS: Pepcid 20 MG PO SCH (09:19)
[2023-02-08] MEDS: NEURONTIN PO SCH (09:19)
--- NOTE | 2023-02-08 10:00 | PCM.DS ---
Discharge Summary Date of Admission: 01/30/23 22:46 Date of Discharge: 02/08/23 Admitting Physician: NORIS HARRINGTON DO Consults: Consults on Case 01/30/23 22:51 Consult Surgery ROUTINE Primary Care Provider: LONG BRAVO <CARLOS ALAS - Last Filed: 02/08/23 11:24> Date of Admission: 01/30/23 22:46 Admitting Physician: NORIS HARRINGTON DO Consults: Consults on Case 01/30/23 22:51 Consult Surgery ROUTINE Primary Care Provider: LONG BRAVO <ALEJANDRO WATTS - Last Filed: 02/10/23 16:38> Allergies <CARLOS ALAS - Last Filed: 02/08/23 11:24> <ALEJANDRO WATTS - Last Filed: 02/10/23 16:38> Allergies No Known Drug Allergies Allergy (Verified 02/09/23 00:36) Hospital Summary - Hospital Course Hospital Course: is a 42 year old female with hx of anxiety/depression presented to ER with c/o severe, generalized abdominal pain CT scan of abd done here shows distal small bowel distention/air - > admitted with SBO. Surgery consulted and pt was initially treated conservatively with NG on LIS with moderate amounts of dark brown output. Repeat CT showed Distal small bowel obstruction, with dila tation of the stomach and diffuse, distention of small intestinal loops down to the distal ileum, the transition point is not clearly delineated in this study. Patient underwent exp lab with small bowel resection w/ anastomosis. She is with a MLI, Endorses improvement in symptoms, minor tenderness at incision site. Bowel function has returned, passing flatus. She is tolerating a regular diet. WBC elevation with no localizing symptoms. Possibly nonspecific. U/A and CXR negative. Hgb levels downtrending but stable. Magnesium and potassium replenished this morning. Additionally patient had complaints of sciatica/ and left ankle pain this morning, requesting topical cream for pain relief which has relieved her symptoms. Patient advised for close follow up with surgery and PCP, blood work on Friday to evaluate potassium, magnesium, and wbc/hgb. Patient is agreeable to plan and ready for discharge. (1) SBO (small bowel obstruction) Current Visit: Yes Status: Acute Assessment & Plan: -As noted on Ct imaging without improvement with conservative treatment -Continue with bowel rest -Continue to monitor renal/lytes daily -Surgical consult, most likely surgery today -anti-emetics for N/V -Failed bowel prep, no BM/flatus 02/04: -S/P exp lab with small bowel resection w/anaostomosis -Continue cefoxitin due to small perf -Continue dressing changes PRN -AD per surgery D/C pending surg recs 02/05: -Pods #2 doing well, MLI CDI, open to air -Encourage ambulation -NG removed -Tolerating FLD, will advance per surgery recs -No BM or flatus 02/06: -PODS #3, doing well, bowel function has returned, passing flatus -Tolerating a full diet -Discharge per surgery recs 02/07: -Cleared by surgery, possible d/c tomorrow once diarrhea under control -New Diagnoses: SBO -New Medications: potassium chloride -Medications Discontinued: none -Follow up: pcp/gen surgery -Results pending: none -Outpatient testing to order: none -Latest Assessment and Plan: Code(s): K56.609 - UNSP INTESTNL OBST, UNSP TO PARTIAL VERSUS COMPLETE OBST (2) Hypomagnesemia Current Visit: Yes Status: Acute Assessment & Plan: -Labs reviewed, mg at 1.3, will replenish Code(s): E83.42 - HYPOMAGNESEMIA (3) Anxiety and depression Current Visit: Yes Status: Acute Assessment & Plan: -currently not taking any home meds - Will need to f/u with mental health and PCP OP. 02/01 - 1 time dose of Ativan 0.5mg - for anxiety - Case management working with pt for OP services 02/02: -Will add ativan 0.25mg Q4H for anxiety/N/V Code(s): F41.9 - ANXIETY DISORDER, UNSPECIFIED; F32.A - DEPRESSION, UNSPECIFIED (4) Hypocalcemia Current Visit: Yes Status: Acute Assessment & Plan: -labs reviewed, calcium at 7.8, corrected calcium at 8.3, continue to monitor 02/05: -Correct pasquale wnl Code(s): E83.51 - HYPOCALCEMIA (5) Hypercalcemia Current Visit: Yes Status: Resolved Assessment & Plan: -Ca 10.5 - mildly elevated, and could be due to dehydration. IVF should help, monitor level. I do not think we need any more work-up for this mildly elevated calcium 01/31 - Ca+ 8.6 resolved Code(s): E83.52 - HYPERCALCEMIA (6) Hyponatremia Current Visit: Yes Status: Acute Assessment & Plan: -sodium levels at 127 this morning, will change IVF to NS,patient now on full liquid diet -BMP q 4H 02/06: -improving, will continue to monitor, level at 131 Code(s): E87.1 - HYPO-OSMOLALITY AND HYPONATREMIA (7) Hypokalemia Current Visit: Yes Status: Acute Assessment & Plan: -Potassium level at 3.4 today, will replenish -add mg level 02/04: -resolved 02/07: -Hypokalemic this morning, replenished, will continue to monitor Code(s): E87.6 - HYPOKALEMIA (8) Leukocytosis Current Visit: Yes Status: Resolved Assessment & Plan: WBC 17.8 - stress response + UTI. Treating these and monitoring WBC trend 01/31 - improving WBC 11.2 02/01 - resolved WBC 6.8 02/02 - WBC 12.6- stress response 02/03: -Resolved 02/05: -Could be reactive from surgery, patient has been on IV abx, will continue to monitor 02/07: -Downtrending, now at 12.9 (14.9) Code(s): D72.829 - ELEVATED WHITE BLOOD CELL COUNT, UNSPECIFIED (9) Reactive thrombocytosis Current Visit: Yes Status: Acute Assessment & Plan: -resolved Code(s): D75.838 - OTHER THROMBOCYTOSIS (10) Abdominal pain Current Visit: Yes Status: Acute Assessment & Plan: -Secondary to SBO/surgical incision I spent 45 minutes [id number] with the patient on the day of discharge performing discharge exam, discussing hospital stay and discharge instructions with patient & caregivers, preparation of discharge records, prescriptions & referral forms and addressing any questions/concerns the patient had as documented above. - Vitals & Intake/Output Vital Signs: Vital Signs Temperature 97.5 F 02/08/23 08:00 Pulse Rate 75 02/08/23 08:00 Respiratory Rate 16 02/08/23 08:00 Blood Pressure 118/57 02/08/23 08:00 O2 Sat by Pulse Oximetry 98 02/08/23 08:00 Intake & Output: Intake & Output 02/05/23 02/06/23 02/07/23 02/08/23 11:59 11:59 11:59 11:59 Intake Total 5019 840 1640 2840 Output Total 1550 1100 Balance 3469 -260 1640 2840 Weight 97.9 kg 100.2 kg 100.2 kg - Lab Result Diagrams: 02/08/23 05:14 02/08/23 10:50 Lab Results-Last 24 Hrs: Lab Results-Last 24 Hours 02/03/23 02/08/23 02/08/23 Range/Units Unknown 05:14 05:14 WBC 13.7 H (4.0-10.5) x10^3/uL RBC 2.70 L (4.1-5.4) x10^6/uL Hgb 7.6 L (12.0-16.0) g/dL Hct 23.9 L (35-47) % MCV 88.5 (78-100) fL MCH 28.1 (26-32) pg MCHC 31.8 L (32-36) g/dL RDW 14.2 H (11.5-14.0) % Plt Count 473 H (150-450) x10^3/uL MPV 8.2 (7.5-11.0) fL Gran % 75.5 H (36.0-66.0) % Immature Gran % (Auto) 1.4 H (0.00-0.4) % Nucleat RBC Rel Count 0.0 (0.00-0.1) % Eos # (Auto) 0.30 (0-0.5) x10^3/uL Immature Gran # (Auto) 0.19 H (0.00-0.03) x10^3u/L Absolute Lymphs (auto) 1.47 (1.0-4.6) x10^3/uL Absolute Monos (auto) 1.34 H (0.0-1.3) x10^3/uL Absolute Nucleated RBC 0.00 (0.00-0.01) x10^3u/L Lymphocytes % 10.7 L (24.0-44.0) % Monocytes % 9.8 (0.0-12.0) % Eosinophils % 2.2 (0.00-5.0) % Basophils % 0.4 (0.0-0.4) % Absolute Granulocytes 10.36 H (1.4-6.9) x10^3/uL Basophils # 0.05 (0-0.4) x10^3/uL Sodium 136 L (137-145) mmol/L Potassium 2.8 L* (3.5-5.1) mmol/L Chloride 103 (98-107) mmol/L Carbon Dioxide 23 (22-30) mmol/L Anion Gap 13.1 (5-15) MEQ/L BUN 3 L (7-17) mg/dL Creatinine 0.54 (0.52-1.04) mg/dL Estimated GFR > 60.0 ML/MIN Glucose 119 H (74-106) mg/dL Calcium 7.6 L (8.4-10.2) mg/dL Magnesium 1.7 (1.6-2.3) mg/dL Total Bilirubin 0.20 (0.2-1.3) mg/dL AST 18 (14-36) U/L ALT 17 (0-35) U/L Alkaline Phosphatase 69 (38-126) U/L Serum Total Protein 5.3 L (6.3-8.2) g/dL Albumin 2.7 L (3.5-5.0) g/dL Surg PTH Specimen SEE COMMENTS Micro Results-Entire Visit: Microbiology 02/03/23 12:54 Urine Culture - Final Catherized NO GROWTH 01/30/23 20:07 Urine Culture - Final Clean Catch Midstream MIXED THA; 3 OR MORE TYPES. NO PREDOMINANT ORGANISM. NO FURTHER WORKUP. PLEASE RESUBMIT IF CLINICALLY INDICATED. - Procedures and Test Procedures and Tests throughout Hospitalization: Therapy Orders & Screens 01/30/23 23:21 Smoking Cessation Education ONCE Comment: Diagnosis: small bowel obstruction, uti, dehydration, abd pain, leukocytosis Smoking Status: Current every day smoker How long have you smoked: 7year Have you smoked in the past 12 months: vapes Approximately how many cigarettes per day: 1/2 ppd Do you dip or chew tobacco: No 02/03/23 11:23 EKG STAT Comment: pre-op Diagnosis: small bowel obstruction, uti, dehydration, abd pain, leukocytosis 02/05/23 13:46 Incentive Spirometry TID Comment: Diagnosis: small bowel obstruction, uti, dehydration, abd pain, leukocytosis 02/05/23 14:00 Respiratory Therapy Assessment DAILY Comment: Diagnosis: small bowel obstruction, uti, dehydration, abd pain, leukocytosis <CARLOS ALAS - Last Filed: 02/08/23 11:24> - Vitals & Intake/Output Vital Signs: Vital Signs Temperature 97.5 F 02/08/23 08:00 Pulse Rate 75 02/08/23 08:00 Respiratory Rate 16 02/08/23 08:00 Blood Pressure 118/57 02/08/23 08:00 O2 Sat by Pulse Oximetry 98 02/08/23 08:00 Intake & Output: Intake & Output 02/08/23 02/09/23 02/10/23 02/11/23 11:59 11:59 11:59 11:59 Intake Total 2840 Balance 2840 Weight 100.2 kg - Lab Result Diagrams: 02/08/23 05:14 02/08/23 10:50 Micro Results-Entire Visit: Microbiology 02/03/23 12:54 Urine Culture - Final Catherized NO GROWTH 01/30/23 20:07 Urine Culture - Final Clean Catch Midstream MIXED THA; 3 OR MORE TYPES. NO PREDOMINANT ORGANISM. NO FURTHER WORKUP. PLEASE RESUBMIT IF CLINICALLY INDICATED. - Procedures and Test Procedures and Tests throughout Hospitalization: Therapy Orders & Screens 01/30/23 23:21 Smoking Cessation Education ONCE Comment: Diagnosis: small bowel obstruction, uti, dehydration, abd pain, leukocytosis Smoking Status: Current every day smoker How long have you smoked: 7year Have you smoked in the past 12 months: vapes Approximately how many cigarettes per day: 1/2 ppd Do you dip or chew tobacco: No 02/03/23 11:23 EKG STAT Comment: pre-op Diagnosis: small bowel obstruction, uti, dehydration, abd pain, leukocytosis 02/05/23 13:46 Incentive Spirometry TID Comment: Diagnosis: small bowel obstruction, uti, dehydration, abd pain, leukocytosis 02/05/23 14:00 Respiratory Therapy Assessment DAILY Comment: Diagnosis: small bowel obstruction, uti, dehydration, abd pain, leukocytosis <ALEJANDRO WATTS - Last Filed: 02/10/23 16:38> Discharge Exam General Appearance: no apparent distress Neurologic Exam: alert, oriented x 3, cooperative Eye Exam: PERRL Ears, Nose, Throat Exam: normal ENT inspection Neck Exam: normal inspection Respiratory Exam: normal breath sounds, lungs clear Cardiovascular Exam: regular rate/rhythm, normal heart sounds Gastrointestinal/Abdomen Exam: soft, normal bowel sounds, other (MLI with preston and sutures, CDI, mild drainage no erythema/edema) Pelvic Exam: deferred Rectal Exam: deferred Back Exam: normal inspection Extremity Exam: joint swelling (Left ankle chronic) Skin Exam: pale, other (MLI with preston and sutures, CDI, mild drainage no erythema/edema) <CARLOS ALAS - Last Filed: 02/08/23 11:24> Final Diagnosis/Problem List - Final Discharge Diagnosis/Problem (1) SBO (small bowel obstruction) Status: Resolved Code(s): K56.609 - UNSP INTESTNL OBST, UNSP TO PARTIAL VERSUS COMPLETE OBST (2) Hypomagnesemia Status: Resolved Code(s): E83.42 - HYPOMAGNESEMIA (3) Anxiety and depression Status: Chronic Code(s): F41.9 - ANXIETY DISORDER, UNSPECIFIED; F32.A - DEPRESSION, UNSPECIFIED (4) Hypocalcemia Status: Resolved Code(s): E83.51 - HYPOCALCEMIA (5) Hypercalcemia Status: Resolved Code(s): E83.52 - HYPERCALCEMIA (6) Hyponatremia Status: Resolved Code(s): E87.1 - HYPO-OSMOLALITY AND HYPONATREMIA (7) Hypokalemia Status: Acute Code(s): E87.6 - HYPOKALEMIA (8) Leukocytosis Status: Acute Code(s): D72.829 - ELEVATED WHITE BLOOD CELL COUNT, UNSPECIFIED (9) Reactive thrombocytosis Status: Resolved Code(s): D75.838 - OTHER THROMBOCYTOSIS (10) Abdominal pain Status: Acute Code(s): R10.9 - UNSPECIFIED ABDOMINAL PAIN <CARLOS ALAS - Last Filed: 02/08/23 11:24> <CARLOS ALAS - Last Filed: 02/08/23 11:24> <ALEJANDRO WATTS - Last Filed: 02/10/23 16:38> - Discharge Disposition: Home, Self-Care Condition: Stable Prescriptions: New Potassium Chloride 20 meq PO BID 5 Days #10 tablet PANTOPRAZOLE 40 mg Tablet [Protonix 40MG Tablet] 40 mg PO DAILY 30 Days #30 tablet Cholecalciferol (Vitamin D3) [Vitamin D] 2,000 unit PO DAILY 30 Days #30 tablet Continue Gabapentin [Neurontin] 600 mg PO TID Tramadol HCl 50 mg [Ultram 50 mg] 50 mg PO Q6HPRN PRN PRN Reason: Pain Meloxicam [Mobic] 15 mg PO DAILY No Action Acetaminophen 325 mg [Tylenol 325 mg] 650 mg PO BID Ibuprofen 200 mg [Motrin 200 mg] 200 mg PO TID Outpatient Orders: CBC W DIFF Time Frame: 2 Days, Facility: [facility] Hosp, Location: L ABORATORY CMP Time Frame: 2 Days, Facility: [facility]. Hosp, Location: LABORATORY MAGNESIUM Time Frame: 2 Days, Facility: [facility] Hosp, Location: LABORATORY Instructions: Hypokalemia (DC), High Potassium Diet, Small Bowel Obstruction (DC) Additional Instructions: -A HOME HEALTH HAS BEEN SET UP FOR YOU. THEY WILL CALL YOU TO ARRANGE A TIME TO COME SEE YOU WITHIN 1-2 DAYS OF DISCHARGE. IF YOU NEED SOMETHING BEFORE THEY COME- YOU CAN REACH THEM AT [phone] -THERE ARE FREE MEALS AT THE [facility] IN [place] ON FRIDAY NIGHTS, THEY ALSO HAVE A FOOD PANTRY. THEIR PHONE NUMBER IS [phone]. -THERE ARE FREE MEALS AT THE [facility] ON Friday. -A REFERRAL WAS SENT TO [facility] ([facility]) TO SEE THEY CAN ASSIST YOU WITH FOOD AND IN HOME ASSISTANCE. THEY SHOULD CALL YOU FOR AN ASSESSMENT. THEIR PHONE NUMBER IS [phone]. -A REFERRAL WAS ALSO SENT TO [facility] THAT CAN ALSO HELP AND GUIDE YOU TO THE APPROPRIATE RESOURCES. THEY SHOULD CONTACT YOU. THEIR PHONE NUMBER IS [phone] -A REFERRAL WAS SENT TO [facility] ( FOR GROUP [facility]ERAPY). THEY WILL CONTACT YOU TO SEE IF YOU ARE INTERESTED IN THEIR SERVICES. THEIR PHONE NUMBER IS [phone] -YOU CAN RENT WALK[facility]CANE FROM [facility] FOR FREE. Please complete labwork in 2 days, follow up with PCP Friday START ORAL POTASSIUM TOMORROW 02/09/23 Follow up with: SARAI DONALD [ACTIVE STAFF] - 02/20/23 3:30 pm (APPOINTMENT [facility] BE AT [facility])
== END 2023-02-08 12:52 | disposition home or self-care (01) | DRG 329 ==
LOC: ED 19:16 → MED SURG 22:46
PROVIDERS: ADMIT Internal Medicine; ATTEND Internal Medicine
PROC: 0DT80ZZ Resection of Small Intestine, Open Approach (ICD-10-PCS; principal; 2023-02-03)
DX: K56.50 Intestinal adhesions [bands], unspecified as to partial versus complete obstruction (principal); K63.1 Perforation of intestine (nontraumatic); E87.1 Hypo-osmolality and hyponatremia; N39.0 Urinary tract infection, site not specified; E83.42 Hypomagnesemia; F41.9 Anxiety disorder, unspecified; F32.A Depression, unspecified; E83.51 Hypocalcemia; E83.52 Hypercalcemia; E87.6 Hypokalemia; D72.829 Elevated white blood cell count, unspecified; D75.838 Other thrombocytosis; R10.9 Unspecified abdominal pain; E86.0 Dehydration; Z79.899 Other long term (current) drug therapy; Z20.828 Contact with and (suspected) exposure to other viral communicable diseases; Z72.0 Tobacco use
CPT/HCPCS: 36000; 36415; 43752; 64488; 71045; 74018; 74021; 74176; 74177; 76937; 80048; 80053; 81001; 81025; 82040; 82150; 82306; 83605; 83690; 83735; 84100; 84132; 85014; 85018; 85025; 85027; 86850; 86900; 86901; 87086; 93005; 94760; 96360; 96365; 96374; 96375; 96376; 99285; J0330; J0694; J0696; J1170; J1650; J1885; J2060; J2250; J2405; J2704; J3010; J3480; L0625; Q3014; A9270-GY; J3475

== ENCOUNTER 2023-02-09 00:33 | Emergency (ER) | payer OTHER ==
[2023-02-09 00:56] VITALS: BP 118/67; PULSE 95; RESP 20; TEMP 97.2; O2SAT 100
--- NOTE | 2023-02-09 01:01 | ERPHSYRPT ---
- History of Present Illness Time Seen by Provider: 02/09/23 00:55 Source: patient, family Exam Limitations: no limitations Physician History: c/o excessive oozing of surgical wound of abdomen. 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 - Review of Systems Constitutional: No Symptoms Eyes: No Symptoms Ears, Nose, & Throat: No Symptoms Respiratory: No Symptoms Cardiac: No Symptoms Abdominal/Gastrointestinal: Other Genitourinary Symptoms: No Symptoms Musculoskeletal: No Symptoms Skin: No Symptoms Neurological: No Symptoms - Past Medical History Pertinent Past Medical History: Yes Neurological History: No Pertinent History ENT History: No Pertinent History Cardiac History: No Pertinent History Respiratory History: No Pertinent History Endocrine Medical History: No Pertinent History Musculoskeletal History: Fractures GI Medical History: No Pertinent History History: No Pertinent History Psycho-Social History: Anxiety, Depression Female Reproductive Disorders: No Pertinent History Other Medical History: ANXIETY/DEPRESSION - STATES GOING TO START ON MEDICATION. - Past Surgical History Past Surgical History: Yes Neuro Surgical History: No Pertinent History Cardiac: No Pertinent History Respiratory: No Pertinent History Gastrointestinal: Appendectomy, Cholecystectomy Genitourinary: No Pertinent History Musculoskeletal: No Pertinent History Female Surgical History: No Pertinent History Other Surgical History: titanium right ankle - Social History Smoking Status: Current every day smoker How long have you smoked: 7year Exposure to second hand smoke: No Drug Use: marijuana Patient Lives Alone: No Significant Family History: no pertinent family hx - Physical Exam General Appearance: no apparent distress Eye Exam: PERRL/EOMI Ears, Nose, Throat Exam: normal ENT inspection Neck Exam: normal inspection Respiratory Exam: normal breath sounds Cardiovascular Exam: regular rate/rhythm Gastrointestinal/Abdomen Exam: soft, normal bowel sounds, other (surgical preston intact. clear oozing from lower part of surgical wound area) - Course Nursing assessment & vital signs reviewed: Yes - Progress Progress: improved Progress Note: 02/09/23 00:58 large wound absorbant pad dressing applied. Counseled pt/family regarding: diagnosis, need for follow-up (with Dr Cohen on friday) Medical Desision Making - Independent Historian Additional History obtained from: Family - Risk of complications Minimal Risk: Minimal risk of morbidity - Departure Departure Disposition: Home Clinical Impression: Drainage from surgical wound Condition: Stable Critical Care Time: No Referrals: LONG BRAVO MD [Primary Care Provider] - Follow up/PCP as directed SARAI COHEN [ACTIVE STAFF] - Follow up/PCP as directed Instructions: Surgical Wound (DC), Wound Care (DC)
== END 2023-02-09 01:08 | disposition home or self-care (01) ==
LOC: ED 00:33
DX: Z48.01 Encounter for change or removal of surgical wound dressing (principal); Z79.891 Long term (current) use of opiate analgesic; Z79.899 Other long term (current) drug therapy; Z72.0 Tobacco use
CPT/HCPCS: 99281; L0625

== ENCOUNTER 2023-04-08 14:49 | Emergency (ER) | payer OTHER ==
[2023-04-08 15:08] VITALS: RESP 18; TEMP 97.9
--- NOTE | 2023-04-08 15:32 | ERPHSYRPT ---
- History of Present Illness Time Seen by Provider: 04/08/23 15:20 Historian: patient Exam Limitations: no limitations Patient Subjective Stated Complaint: Abdominal pain Triage Nursing Assessment: Patient ambulated back to ED and transferred self to bed. Patient A+O x 3. Patient's skin pink, warm and dry. Patient complains of abdominal pain for 3 days with N/V and diarrhea. Patient was seen in [facility] this am and had labs done and was told to go to ER if pain gets worse. Patient's states abdominal pain is 10/10 in the upper abdomen. Abdomen soft and round with BS X 4. Physician History: Patient 42-year-old female presents with epigastric pain. Pain is associated with nausea vomiting and diarrhea. patient was seen at [facility] this morning. Labs were completed. No significant findings were observed. Patient was advised to come to the ED if her symptoms persisted. Patient is still having abdominal pain. Patient is here for further evaluation and treatment. Abdominal pain is primarily epigastric. Pain described as an ache that is localized. No radiation. Patient has a history of cholecystectomy. No trauma. No fever. Symptoms are moderate in intensity. Pain worse with palpation. Pain improved with rest. Patient otherwise healthy. She voices no other complaints or concerns at this time. Portions of this note were created with voice recognition technology. There may be grammatical, spelling, punctuation or sound alike errors Timing/Duration: today Activities at Onset: none Quality: aching Abdominal Pain Onset Location: epigastric Pain Radiation: no radiation Severity of Pain-Max: moderate Severity of Pain-Current: mild Modifying Factors: Improves With: palpation Associated Symptoms: diarrhea, nausea, vomiting Previous symptoms: no prior history Allergies/Adverse Reactions: No Known Drug Allergies Allergy (Verified 04/08/23 14:58) Home Medications: Gabapentin [Neurontin] 600 mg PO TID 07/09/22 [History] Meloxicam [Mobic] 15 mg PO DAILY 01/30/23 [History] Tramadol HCl 50 mg [Ultram 50 mg] 50 mg PO Q6HPRN PRN 01/30/23 [History] Acetaminophen 325 mg [Tylenol 325 mg] 650 mg PO BID 02/09/23 [History] Ibuprofen 200 mg [Motrin 200 mg] 200 mg PO TID 02/09/23 [History] Hx Tetanus, Diphtheria Vaccination/Date Given: Yes (2019) Hx Influenza Vaccination/Date Given: No Hx Pneumococcal Vaccination/Date Given: No Immunizations Up to Date: Yes Travel Risk - International Travel Have you traveled outside of the country in past 3 weeks: No - Coronavirus Screening Are you exhibiting any of the following symptoms?: No Close contact with a COVID-19 positive Pt in past 14-21 Days: No - Vaccine Status Have you recieved a Covid-19 vaccination: Yes [employer]: [employer] - Vaccination Dates Dates if Unknown: ? - Review of Systems Constitutional: No Symptoms, No Fever, No Chills Eyes: No Symptoms Ears, Nose, & Throat: No Symptoms Respiratory: No Symptoms, No Cough, No Dyspnea Cardiac: No Symptoms, No Chest Pain, No Edema, No Syncope Abdominal/Gastrointestinal: No Symptoms, No Abdominal Pain, No Nausea, No Vomiting, No Diarrhea Genitourinary Symptoms: No Symptoms, No Dysuria Musculoskeletal: No Symptoms, No Back Pain, No Neck Pain Skin: No Symptoms, No Rash Neurological: No Symptoms, No Dizziness, No Focal Weakness, No Sensory Changes Psychological: No Symptoms Endocrine: No Symptoms Hematologic/Lymphatic: No Symptoms Immunological/Allergic: No Symptoms All Other Systems: Reviewed and Negative - Past Medical History Pertinent Past Medical History: Yes Neurological History: No Pertinent History ENT History: No Pertinent History Cardiac History: No Pertinent History Respiratory History: No Pertinent History Endocrine Medical History: No Pertinent History Musculoskeletal History: Fractures GI Medical History: No Pertinent History History: No Pertinent History Psycho-Social History: Anxiety, Depression Female Reproductive Disorders: No Pertinent History Other Medical History: ANXIETY/DEPRESSION - STATES GOING TO START ON MEDICATION. - Past Surgical History Past Surgical History: Yes Neuro Surgical History: No Pertinent History Cardiac: No Pertinent History Respiratory: No Pertinent History Gastrointestinal: Appendectomy, Cholecystectomy Genitourinary: No Pertinent History Musculoskeletal: No Pertinent History Female Surgical History: No Pertinent History Other Surgical History: titanium right ankle - Social History Smoking Status: Current every day smoker How long have you smoked: 7year Exposure to second hand smoke: No Drug Use: marijuana Patient Lives Alone: No Significant Family History: no pertinent family hx - Female History Hx Last Menstrual Period: menopause Hx Now: No - Nursing Vital Signs Nursing Vital Signs: Initial Vital Signs Temperature 97.9 F 04/08/23 14:59 Pulse Rate 113 H 04/08/23 14:59 Respiratory Rate 18 04/08/23 14:59 Blood Pressure 147/89 04/08/23 14:59 O2 Sat by Pulse Oximetry 97 04/08/23 14:59 Pain Scale Pain Intensity 6 - Physical Exam General Appearance: no apparent distress, alert Eye Exam: PERRL/EOMI, eyes nml inspection Ears, Nose, Throat Exam: normal ENT inspection, pharynx normal, moist mucous membranes Neck Exam: normal inspection, non-tender, supple, full range of motion Respiratory Exam: normal breath sounds, lungs clear, No respiratory distress Cardiovascular Exam: regular rate/rhythm, normal heart sounds Gastrointestinal/Abdomen Exam: soft, tenderness (Epigastric tenderness to palpation), No mass Back Exam: normal inspection, normal range of motion, No CVA tenderness, No vertebral tenderness Extremity Exam: normal inspection, normal range of motion, pelvis stable Neurologic Exam: alert, oriented x 3, cooperative, 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 No complications. Chronic bony findings.) Ordered Tests: Active Orders 24 hr Category Date Time Status EKG-ER Only STAT Care 04/08/23 16:35 Active ABDOMEN AND PELVIS W/0 CONTRAS [CT] Stat Exams 04/08/23 15:13 Completed TROPONIN Q4H Lab 04/08/23 Completed TROPONIN Q4H Lab 04/08/23 20:45 Ordered Medication Summary Discontinued Medications Generic Name Dose Route Start Last Admin Trade Name Freq PRN Reason Stop Dose Admin Al Hydrox/Mg Hydrox/Simethicone Confirm 04/08/23 16:32 Mag Hydrox/Al Hydrox/Simeth 30 Ml Udcup Administered 04/08/23 16:33 Dose 30 ml .ROUTE .STK-MED ONE Ketorolac Tromethamine Confirm 04/08/23 16:31 Ketorolac Tromethamine 30 Mg/Ml Inj Administered 04/08/23 16:32 Dose 60 mg .ROUTE .STK-MED ONE Ketorolac Tromethamine 60 mg 04/08/23 16:30 04/08/23 16:37 Ketorolac Tromethamine 30 Mg/Ml Inj IM 04/08/23 16:31 Not Given STAT ONE Ketorolac Tromethamine 30 mg 04/08/23 16:38 04/08/23 16:39 Ketorolac Tromethamine 30 Mg/Ml Inj IV 04/08/23 16:39 30 mg STAT ONE Administration Lidocaine HCl Confirm 04/08/23 16:31 Lidocaine Hcl 2% Viscous 15 Ml Udcup Administered 04/08/23 16:32 Dose 15 ml .ROUTE .STK-MED ONE Magnesium Hydroxide 45 ml 04/08/23 16:30 04/08/23 16:39 Mag Hydrx/Alum Hyd/Simeth/Lido 45 Ml Bottle PO 04/08/23 16:31 45 ml STAT ONE Administration Lab/Rad Data: Laboratory Results 04/08/23 Range/Units Unknown Troponin I < 0.012 (0.000-0.034) ng/mL - Progress Progress: improved Progress Note: 42-year-old female presents to our ED for evaluation of epigastric pain. Patient went to urgent care earlier in the day. Patient had laboratory work-up. Laboratory work-up was negative. Patient was advised to come to the ED if her pain continued. Physical exam reveals some tenderness in the epigastrium. No need to repeat laboratory work-up. Lipase was negative. We added a troponin. Troponin was negative as well. We performed a CT abdomen pelvis which showed no acute bony pathology. Patient has a recent history of bowel resection. No complications observed regarding his bowel resection. Chronic bony findings observed. Patient received pain medication. Patient reassessed. Epigastric pain resolved after administration of GI cocktail. Patient is ready for discharge. EKG revealed normal sinus rhythm. No ischemic changes. Patient agrees to follow-up with her primary care doctor within 48 hours for reevaluation. Patient was advised that she may require a EGD to assess for possible gastric ulcer/peptic ulcer formation. Patient received a dose of IV Protonix prior to discharge. Portions of this note were created with voice recognition technology. There may be grammatical, spelling, punctuation or sound alike errors Complexity of problems addressed is moderate acute complicated Complex of data reviewed and analyzed is moderate. Test ordered test reviewed. Results analyzed and correlated clinically. We did not repeat the laboratory studies as they were done just prior to arrival. CT scan abdomen pelvis completed. Results were correlated with earlier laboratory studies as well as physical exam upon arrival Risk complication and a risk morbidity/mortality of patient management is moderate. A prescription for Protonix forwarded to patient's pharmacy. Vital stable. Time spent to discharge patient approximately 15 minutes. Plan of care established for shared decision making. No social determinants of health present to impede follow-up. 04/08/23 18:02 Counseled pt/family regarding: lab results, diagnosis, need for follow-up, rad results - Departure Departure Disposition: Home Clinical Impression: Epigastric pain Condition: Stable Critical Care Time: No Referrals: LONG BRAVO MD [Primary Care Provider] - Follow up/PCP as directed Additional Instructions: Discharge/Care Plan PABLITO LOYA was seen on 04/08/23 in the Emergency Room. The patient was counseled regarding Diagnosis,Lab results, Imaging studies, need for follow up and when to return to the Emergency Room. Prescriptions given: Discharge Note I have spoken with the patient and/or caregivers. I have explained the patient's condition, diagnosis and treatment plan based on the information available to me at this time. I have answered the patient's and/or caregiver's questions and addressed any concerns. The patient and/or caregivers have as good understanding of the patient's diagnosis, condition and treatment plan as can be expected at this point. The vital signs have been stable. The patient's condition is stable and appropriate for discharge from the emergency department. The patient will pursue further outpatient evaluation with the primary care physician or other designated or consulting physician as outlined in the discharge instructions. The patient and/or caregivers are agreeable to this plan of care and follow-up instructions have been explained in detail. The patient and/or caregivers have received these instruction. The patient/and or caregivers are aware that any significant change in condition or worsening of symptoms should prompt an immediate return to this or the closest emergency department or call 911. Prescriptions: PANTOPRAZOLE 40 mg Tablet [Protonix 40MG Tablet] 40 mg PO QAM 14 Days #14 tab
--- NOTE | 2023-04-08 16:28 | XRAY ---
Indication: Abdomen pain. Multiple contiguous axial images obtained through the abdomen and pelvis without contrast. Comparison: February 02, 2023 Lung bases clear. Heart not enlarged. Noncontrasted stomach and bowel loops appear nonobstructed. New intact mid abdomen small bowel anastomosis. Again cholecystectomy. No free fluid/air. Remaining liver, pancreas, spleen, adrenal glands, kidneys, ureters, bladder, uterus, and aorta are unremarkable for noncontrast exam. 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 Impression: 1. Interval small bowel resection with intact anastomosis. No complications. 2. Again chronic bony findings. 3. Remaining CT abdomen/pelvis without contrast exam is negative.
[2023-04-08] MEDS ORDERED: GI COCKTAIL 45 ML (Maalox/Lidocaine) PO ONE (16:30)
[2023-04-08] MEDS ORDERED: TORAdol 30 mg Injection IM ONE (16:30)
[2023-04-08] MEDS ORDERED: XYLOCAINE VISCOUS 2% 15 ML CUP ONE (16:31)
[2023-04-08] MEDS ORDERED: TORAdol 30 mg Injection ONE (16:31)
[2023-04-08] MEDS ORDERED: MAALOX ES 30 ML UNIT DOSE ONE (16:32)
[2023-04-08] MEDS ORDERED: TORAdol 30 mg Injection IV ONE (16:38)
[2023-04-08 18:01] VITALS: O2SAT 97
[2023-04-08 18:04] VITALS: BP 136/74; PULSE 76
[2023-04-08] MEDS ORDERED: PROTONIX 40 MG IV IV ONE ×2 (18:06→18:07)
== END 2023-04-08 18:27 | disposition home or self-care (01) ==
LOC: ED 14:49
DX: R10.13 Epigastric pain (principal); R11.2 Nausea with vomiting, unspecified; R19.7 Diarrhea, unspecified; Z79.899 Other long term (current) drug therapy; Z72.0 Tobacco use
CPT/HCPCS: 36000; 36415; 74176; 84484; 93005; 96374; 96375; 99284; J1885; A9270-GY

== ENCOUNTER 2023-10-31 18:03 | Emergency (ER) | payer OTHER ==
--- NOTE | 2023-10-31 18:16 | ERPHSYRPT ---
- History of Present Illness Time Seen by Provider: 10/31/23 18:16 Historian: patient, family Exam Limitations: no limitations Physician History: This is an overweight 43-year-old white female patient who presents with right upper quad abdominal pain for greater than 1 week that intermittently radiates into her back and is associated with decreased appetite and loose stools. Symptoms were worst today. She feels little nauseated as well. She has not had a fever. She denies chest pain. She denies cough. She has had similar symptoms in the past. I did review 1 similar stay in April 2023 and I reviewed that visit as well as the laboratory and radiographic reports. Patient has had an appendectomy and cholecystectomy in the past. She has a history of anxiety and depression. Everyone of her medications is to treat some type of pain issue. Yesterday, patient admits to drinking beers. She felt that this might have worsened her symptoms. Patient has never had a colonoscopy in the past. Timing/Duration: week(s) (1) Activities at Onset: none Quality: sharpness, stabbing Abdominal Pain Onset Location: RUQ Pain Radiation: back Severity of Pain-Max: moderate Severity of Pain-Current: moderate Modifying Factors: Improves With: other (Nausea and) Associated Symptoms: diarrhea, loss of appetite, nausea Previous symptoms: same symptoms as today, no recent treatment Allergies/Adverse Reactions: No Known Drug Allergies Allergy (Verified 10/31/23 18:18) Home Medications: Ferrous Sulfate 325 mg [Feosol 325 mg] 325 mg PO DAILY 10/31/23 [History] Prazosin HCl 2 mg PO HS 10/31/23 [History] Risperidone 1 mg [Risperdal 1 MG] 1 mg PO DAILY 10/31/23 [History] Sertraline HCl [Zoloft] 100 mg PO DAILY 10/31/23 [History] Hx Tetanus, Diphtheria Vaccination/Date Given: Yes (2019) Hx Influenza Vaccination/Date Given: No Hx Pneumococcal Vaccination/Date Given: No Travel Risk - International Travel Have you traveled outside of the country in past 3 weeks: No - Emerging Infectious Disease Are you exhibiting symptoms associated with any current EIDs: Yes Symptoms: Abdominal Pain (Right upper quadrant), Diarrhea, Other (Please Comme nt) (Nausea and change in appetite) - Review of Systems Constitutional: No Symptoms Eyes: No Symptoms Ears, Nose, & Throat: No Symptoms Respiratory: No Symptoms Cardiac: No Symptoms Abdominal/Gastrointestinal: Abdominal Pain (Right upper quadrant), Nausea, Diarrhea, Appetite Changes Genitourinary Symptoms: No Symptoms Musculoskeletal: No Symptoms Skin: No Symptoms Neurological: No Symptoms Psychological: No Symptoms Endocrine: No Symptoms Hematologic/Lymphatic: No Symptoms Immunological/Allergic: No Symptoms All Other Systems: Reviewed and Negative - Past Medical History Pertinent Past Medical History: Yes Neurological History: No Pertinent History ENT History: No Pertinent History Cardiac History: No Pertinent History Respiratory History: No Pertinent History Endocrine Medical History: No Pertinent History Musculoskeletal History: Fractures GI Medical History: No Pertinent History History: No Pertinent History Psycho-Social History: Anxiety, Depression Female Reproductive Disorders: No Pertinent History Other Medical History: ANXIETY/DEPRESSION - STATES GOING TO START ON MEDICATION. - Past Surgical History Past Surgical History: Yes Neuro Surgical History: No Pertinent History Cardiac: No Pertinent History Respiratory: No Pertinent History Gastrointestinal: Appendectomy, Cholecystectomy Genitourinary: No Pertinent History Musculoskeletal: No Pertinent History Female Surgical History: No Pertinent History Other Surgical History: titanium right ankle Significant Family History: no pertinent family hx - Social History Smoking Status: Current every day smoker How long have you smoked: 7year Exposure to second hand smoke: No Drug Use: marijuana Patient Lives Alone: No - Nursing Vital Signs Nursing Vital Signs: Initial Vital Signs Temperature 97.0 F 10/31/23 18:17 Pulse Rate 83 10/31/23 18:17 Respiratory Rate 18 10/31/23 18:17 O2 Sat by Pulse Oximetry 97 10/31/23 18:17 Pain Scale Pain Intensity 5 - Physical Exam General Appearance: no apparent distress, alert, anxiety, obese Eye Exam: PERRL/EOMI, eyes nml inspection Ears, Nose, Throat Exam: normal ENT inspection, moist mucous membranes Neck Exam: normal inspection, non-tender, supple, full range of motion Respiratory Exam: normal breath sounds, lungs clear, airway intact, No chest tenderness, No respiratory distress Cardiovascular Exam: regular rate/rhythm, normal heart sounds, normal peripheral pulses Gastrointestinal/Abdomen Exam: soft, normal bowel sounds, tenderness (Upper gerardo drant), guarding (Right upper quadrant to palpation) Pelvic Exam: not done Rectal Exam: not done Back Exam: normal inspection, normal range of motion, No CVA tenderness, No vertebral tenderness Extremity Exam: normal inspection, normal range of motion, pelvis stable Neurologic Exam: alert, oriented x 3, 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, 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, nml cerebellar function, nml station & gait, sensation nml Skin Exam: normal color, warm, dry Lymphatic Exam: No adenopathy SpO2 Interpretation: normal O2 Delivery: Room Air - Course Nursing assessment & vital signs reviewed: Yes Ordered Tests: Active Orders 24 hr Category Date Time Status EKG-ER Only STAT Care 10/31/23 18:30 Active IV Insertion STAT Care 10/31/23 18:30 Active ACO SDOH Referral ONCE Cons 10/31/23 18:16 Active ABDOMEN AND PELVIS W/0 CONTRAS [CT] Stat Exams 10/31/23 18:30 Taken AMYLASE Stat Lab 10/31/23 18:15 Completed CBC W DIFF Stat Lab 10/31/23 18:15 Completed CMP Stat Lab 10/31/23 18:15 Completed ETHYL ALCOHOL Stat Lab 10/31/23 18:15 Completed LIPASE Stat Lab 10/31/23 18:15 Completed Lactic Acid Stat Lab 10/31/23 18:45 Completed OB-FECAL SCREEN Stat Lab 10/31/23 19:01 Completed TROPONIN Q4H Lab 10/31/23 18:15 Completed TROPONIN Q4H Lab 10/31/23 22:45 Ordered TROPONIN Q4H Lab 11/01/23 02:45 Ordered UA W/RFX UR CULTURE Stat Lab 10/31/23 18:48 Completed Medication Summary Discontinued Medications Generic Name Dose Route Start Last Admin Trade Name Freq PRN Reason Stop Dose Admin Hydromorphone HCl 1 mg 10/31/23 18:30 10/31/23 19:02 Hydromorphone 1 Mg/1ml Inj IV 10/31/23 18:31 1 mg STAT ONE Administration Hydromorphone HCl Confirm 10/31/23 18:57 Hydromorphone 1 Mg/1ml Inj Administered 10/31/23 18:58 Dose 1 mg .ROUTE .STK-MED ONE Sodium Chloride 1,000 mls @ 999 mls/hr 10/31/23 18:30 10/31/23 19:01 Sodium Chloride 0.9% 1000 Ml IV 10/31/23 19:30 999 mls/hr .Q1H1M STA Administration Sodium Chloride Confirm 10/31/23 18:57 Sodium Chloride 0.9% 1000 Ml Administered 10/31/23 18:58 Dose 1,000 mls @ ud .ROUTE .STK-MED ONE Ondansetron HCl 4 mg 10/31/23 18:30 10/31/23 19:02 Ondansetron Hcl 4 Mg/2 Ml Vial IV 10/31/23 18:31 4 mg STAT ONE Administration Ondansetron HCl Confirm 10/31/23 18:56 Ondansetron Hcl 4 Mg/2 Ml Vial Administered 10/31/23 18:57 Dose 4 mg .ROUTE .STK-MED ONE Pantoprazole Sodium 40 mg 10/31/23 18:53 10/31/23 19:02 Pantoprazole 40 Mg Vial IV 10/31/23 18:54 40 mg STAT ONE Administration Pantoprazole Sodium Confirm 10/31/23 18:56 Pantoprazole 40 Mg Vial Administered 10/31/23 18:57 Dose 40 mg IV .STK-MED ONE Potassium Chloride 20 meq 10/31/23 19:47 10/31/23 19:54 Potassium Chloride Tab 10 Meq Tab PO 10/31/23 19:48 20 meq STAT ONE Administration Potassium Chloride Confirm 10/31/23 19:52 Potassium Chloride Tab 10 Meq Tab Administered 10/31/23 19:53 Dose 20 meq .ROUTE .STK-MED ONE Lab/Rad Data: Laboratory Result Diagrams 10/31/23 18:15 10/31/23 18:15 Laboratory Results 10/31/23 10/31/23 10/31/23 Range/Units 19:04 19:01 18:50 WBC (4.0-10.5) x10^3/uL RBC (4.1-5.4) x10^6/uL Hgb (12.0-16.0) g/dL Hct (35-47) % MCV (78-100) fL MCH (26-32) pg MCHC (32-36) g/dL RDW (11.5-14.0) % Plt Count (150-450) x10^3/uL MPV (7.5-11.0) fL Gran % (36.0-66.0) % Immature Gran % (Auto) (0.00-0.4) % Nucleat RBC Rel Count (0.00-0.1) % Eos # (Auto) (0-0.5) x10^3/uL Immature Gran # (Auto) (0.00-0.03) x10^3u/L Absolute Lymphs (auto) (1.0-4.6) x10^3/uL Absolute Monos (auto) (0.0-1.3) x10^3/uL Absolute Nucleated RBC (0.00-0.01) x10^3u/L Lymphocytes % (24.0-44.0) % Monocytes % (0.0-12.0) % Eosinophils % (0.00-5.0) % Basophils % (0.0-0.4) % Absolute Granulocytes (1.4-6.9) x10^3/uL Basophils # (0-0.4) x10^3/uL Sodium (135-145) mmol/L Potassium (3.5-5.1) mmol/L Chloride (98-107) mmol/L Carbon Dioxide (22-30) mmol/L Anion Gap (5-15) MEQ/L BUN (7-17) mg/dL Creatinine (0.52-1.04) mg/dL Estimated GFR ML/MIN Glucose (74-106) mg/dL Lactic Acid (0.4-2.0) Calcium (8.4-10.2) mg/dL Total Bilirubin (0.2-1.3) mg/dL AST (14-36) U/L ALT (0-35) U/L Alkaline Phosphatase (38-126) U/L Troponin I (0.000-0.033) ng/mL Serum Total Protein (6.3-8.2) g/dL Albumin (3.5-5.0) g/dL Amylase (30-110) U/L Lipase (23-300) U/L Urine Color (Yellow) Urine Appearance (Clear) Urine pH (4.6-8.0) Ur Specific [place] (1.005-1.030) Urine Protein (Negative) Urine Glucose (UA) (Negative) mg/dL Urine Ketones (Negative) Urine Blood (Negative) Urine Nitrite (Negative) Urine Bilirubin (Negative) Urine Urobilinogen (0.2) mg/dL Ur Leukocyte Esterase (Negative) U Hyaline Cast (Auto) (0-2) /LPF Urine Microscopic RBC (0-5) /HPF Urine Microscopic WBC (0-5) /HPF Ur Epithelial Cells (None Seen) /HPF Urine Bacteria (None Seen) /HPF Urine Culture Reflexed (NO) Stl Occult Blood (IFOB) POSITIVE A (NEGATIVE) Ethyl Alcohol (0-10) mg/dL C. difficile Screen NEGATIVE (NEGATIVE) C.difficile 027-NAP1-B1 PRESUMPTIVE NEGATIVE (NEGATIVE) Influenza Type A Ag NEGATIVE (NEGATIVE) Influenza Type B Ag NEGATIVE (NEGATIVE) RSV (PCR) NEGATIVE (NEGATIVE) SARS-CoV-2 (PCR) NEGATIVE (NEGATIVE) 10/31/23 10/31/23 10/31/23 Range/Units 18:48 18:45 18:15 WBC (4.0-10.5) x10^3/uL RBC (4.1-5.4) x10^6/uL Hgb (12.0-16.0) g/dL Hct (35-47) % MCV (78-100) fL MCH (26-32) pg MCHC (32-36) g/dL RDW (11.5-14.0) % Plt Count (150-450) x10^3/uL MPV (7.5-11.0) fL Gran % (36.0-66.0) % Immature Gran % (Auto) (0.00-0.4) % Nucleat RBC Rel Count (0.00-0.1) % Eos # (Auto) (0-0.5) x10^3/uL Immature Gran # (Auto) (0.00-0.03) x10^3u/L Absolute Lymphs (auto) (1.0-4.6) x10^3/uL Absolute Monos (auto) (0.0-1.3) x10^3/uL Absolute Nucleated RBC (0.00-0.01) x10^3u/L Lymphocytes % (24.0-44.0) % Monocytes % (0.0-12.0) % Eosinophils % (0.00-5.0) % Basophils % (0.0-0.4) % Absolute Granulocytes (1.4-6.9) x10^3/uL Basophils # (0-0.4) x10^3/uL Sodium (135-145) mmol/L Potassium (3.5-5.1) mmol/L Chloride (98-107) mmol/L Carbon Dioxide (22-30) mmol/L Anion Gap (5-15) MEQ/L BUN (7-17) mg/dL Creatinine (0.52-1.04) mg/dL Estimated GFR ML/MIN Glucose (74-106) mg/dL Lactic Acid 2.1 H (0.4-2.0) Calcium (8.4-10.2) mg/dL Total Bilirubin (0.2-1.3) mg/dL AST (14-36) U/L ALT (0-35) U/L Alkaline Phosphatase (38-126) U/L Troponin I (0.000-0.033) ng/mL Serum Total Protein (6.3-8.2) g/dL Albumin (3.5-5.0) g/dL Amylase (30-110) U/L Lipase (23-300) U/L Urine Color Yellow (Yellow) Urine Appearance Clear (Clear) Urine pH >=9.0 A (4.6-8.0) Ur Specific [place] 1.015 (1.005-1.030) Urine Protein 100 A (Negative) Urine Glucose (UA) Negative (Negative) mg/dL Urine Ketones Negative (Negative) Urine Blood Negative (Negative) Urine Nitrite Negative (Negative) Urine Bilirubin Negative (Negative) Urine Urobilinogen 0.2 (0.2) mg/dL Ur Leukocyte Esterase Negative (Negative) U Hyaline Cast (Auto) NONE SEEN (0-2) /LPF Urine Microscopic RBC 0-2 (0-5) /HPF Urine Microscopic WBC 0-2 (0-5) /HPF Ur Epithelial Cells Rare (None Seen) /HPF Urine Bacteria None Seen (None Seen) /HPF Urine Culture Reflexed NO (NO) Stl Occult Blood (IFOB) (NEGATIVE) Ethyl Alcohol < 10 (0-10) mg/dL C. difficile Screen (NEGATIVE) C.difficile 027-NAP1-B1 (NEGATIVE) Influenza Type A Ag (NEGATIVE) Influenza Type B Ag (NEGATIVE) RSV (PCR) (NEGATIVE) SARS-CoV-2 (PCR) (NEGATIVE) 10/31/23 10/31/23 10/31/23 Range/Units 18:15 18:15 18:15 WBC 8.7 (4.0-10.5) x10^3/uL RBC 3.55 L (4.1-5.4) x10^6/uL Hgb 7.6 L (12.0-16.0) g/dL Hct 25.5 L (35-47) % MCV 71.8 L (78-100) fL MCH 21.4 L (26-32) pg MCHC 29.8 L (32-36) g/dL RDW 19.6 H (11.5-14.0) % Plt Count 484 H (150-450) x10^3/uL MPV 8.7 (7.5-11.0) fL Gran % 66.7 H (36.0-66.0) % Immature Gran % (Auto) 0.3 (0.00-0.4) % Nucleat RBC Rel Count 0.0 (0.00-0.1) % Eos # (Auto) 0.13 (0-0.5) x10^3/uL Immature Gran # (Auto) 0.03 (0.00-0.03) x10^3u/L Absolute Lymphs (auto) 1.87 (1.0-4.6) x10^3/uL Absolute Monos (auto) 0.81 (0.0-1.3) x10^3/uL Absolute Nucleated RBC 0.00 (0.00-0.01) x10^3u/L Lymphocytes % 21.5 L (24.0-44.0) % Monocytes % 9.3 (0.0-12.0) % Eosinophils % 1.5 (0.00-5.0) % Basophils % 0.7 (0.0-0.4) % Absolute Granulocytes 5.78 (1.4-6.9) x10^3/uL Basophils # 0.06 (0-0.4) x10^3/uL Sodium 142 (135-145) mmol/L Potassium 3.3 L (3.5-5.1) mmol/L Chloride 98 (98-107) mmol/L Carbon Dioxide 36 H (22-30) mmol/L Anion Gap 11.3 (5-15) MEQ/L BUN 7 (7-17) mg/dL Creatinine 0.72 (0.52-1.04) mg/dL Estimated GFR 105.7 ML/MIN Glucose 103 (74-106) mg/dL Lactic Acid (0.4-2.0) Calcium 9.2 (8.4-10.2) mg/dL Total Bilirubin 0.20 (0.2-1.3) mg/dL AST 26 (14-36) U/L ALT 18 (0-35) U/L Alkaline Phosphatase 70 (38-126) U/L Troponin I < 0.012 (0.000-0.033) ng/mL Serum Total Protein 7.0 (6.3-8.2) g/dL Albumin 4.2 (3.5-5.0) g/dL Amylase 74 (30-110) U/L Lipase 119 (23-300) U/L Urine Color (Yellow) Urine Appearance (Clear) Urine pH (4.6-8.0) Ur Specific [place] (1.005-1.030) Urine Protein (Negative) Urine Glucose (UA) (Negative) mg/dL Urine Ketones (Negative) Urine Blood (Negative) Urine Nitrite (Negative) Urine Bilirubin (Negative) Urine Urobilinogen (0.2) mg/dL Ur Leukocyte Esterase (Negative) U Hyaline Cast (Auto) (0-2) /LPF Urine Microscopic RBC (0-5) /HPF Urine Microscopic WBC (0-5) /HPF Ur Epithelial Cells (None Seen) /HPF Urine Bacteria (None Seen) /HPF Urine Culture Reflexed (NO) Stl Occult Blood (IFOB) (NEGATIVE) Ethyl Alcohol (0-10) mg/dL C. difficile Screen (NEGATIVE) C.difficile 027-NAP1-B1 (NEGATIVE) Influenza Type A Ag (NEGATIVE) Influenza Type B Ag (NEGATIVE) RSV (PCR) (NEGATIVE) SARS-CoV-2 (PCR) (NEGATIVE) - Progress Progress: improved, re-examined Progress Note: 10/31/23 18:56 Medical decision making and the assignment of moderate complexity to this patient's medical issue today is based on review of the patient's past medical history, review of the medication list, review of patient drug allergy list, history present illness and physical findings on examination. The workup in this patient includes IV line placement, infusion of normal saline solution, infusion of Protonix intravenously, infusion of Zofran intravenously, infusion of Dilaudid intravenously, CBC, CMP, amylase, lipase, viral swabs, urinalysis, alcohol level, CT scan of the abdomen pelvis without contrast. Differential diagnosis includes colitis, pancreatitis, viral illness 10/31/23 20:23 I interpreted the patient's laboratory data results. The patient has a hemoglobin of 7.6. Her vital signs are stable. Patient has known chronic anemia. She had a 7.7 hemoglobin as recent as 2 weeks ago. She was started on iron sulfate 325 mg 3 times a day. She admits she is not taking it as she is supposed to. She also, in the past, has had hemoglobins ranging from 7.6-7.9. I discussed this patient with Dr. Mccoy. I reviewed the patient history, presenting complaint and the results of the laboratory and radiographic studies. We are both in agreement that the patient is stable enough to be discharged to home and follow-up with her primary care provider on Friday, November 03, 2023. That is, if the patient is reliable and responsible. I had a long discussion with the patient. She prefers to be discharged home and states that she will definitely take her iron supplement pills and stop her NSAID medication (diclofenac). She will also call her primary care provider on Friday and make arrangements for an outpatient colonoscopy. Counseled pt/family regarding: lab results, diagnosis, need for follow-up, rad results - Departure Departure Disposition: Home Clinical Impression: Chronic anemia, Hypokalemia Condition: Stable Critical Care Time: No Referrals: LONG BRAVO MD [Primary Care Provider] - Follow up/PCP as directed Additional Instructions: Drink plenty of clear liquids. Add bananas, nuts and green leafy vegetables to your diet. Take your iron supplements 3 times a day as you were told to do. Call your primary care provider on 11/03/2023, to make arrangements to be seen in the next 3 days and to make arrangements for outpatient colonoscopy. Stop your diclofenac medication. Take your antibiotics and Protonix as prescribed. Prescriptions: Metronidazole 500 mg [Flagyl 500 MG] 500 mg PO TID #21 tablet Pantoprazole 20 mg [Protonix 20MG Tablet] 20 mg PO DAILY #14 tab
[2023-10-31 18:18] VITALS: RESP 18; TEMP 97
[2023-10-31 18:37] LABS: Absolute Neutrophil Ct (ANC) 5.78 x10^3/uL (1.4-6.9); BASOPHIL % 0.7 % (0.0-0.4); Basophil (Absolute #) 0.06 x10^3/uL (0-0.4); Eosinophil % 1.5 % (0.00-5.0); Eosinophil (Absolute #) 0.13 x10^3/uL (0-0.5); Hematocrit 25.5 % (35-47); Hemoglobin 7.6 g/dL (12.0-16.0); IMMATURE GRAN # 0.03 x10^3u/L (0.00-0.03); IMMATURE GRAN % 0.3 % (0.00-0.4); Lymphocyte (Absolute #) 1.87 x10^3/uL (1.0-4.6); Lymphocytes % 21.5 % (24.0-44.0); Mean Cell Volume 71.8 fL (78-100); Mean Corpuscular Hemoglobin 21.4 pg (26-32); Mean Corpuscular Hgb Concent. 29.8 g/dL (32-36); Mean Platelet Volume 8.7 fL (7.5-11.0); Monocyte (Absolute #) 0.81 x10^3/uL (0.0-1.3); Monocytes % 9.3 % (0.0-12.0); Neutrophil % 66.7 % (36.0-66.0); Platelet Count 484 x10^3/uL (150-450); Red Blood Count 3.55 x10^6/uL (4.1-5.4); Red Cell Distribution Width 19.6 % (11.5-14.0); White Blood Count 8.7 x10^3/uL (4.0-10.5)
[2023-10-31 18:44] LABS: ALBUMIN 4.2 g/dL (3.5-5.0); BILIRUBIN,TOTAL 0.2 mg/dL (0.2-1.3); Calcium 9.2 mg/dL (8.4-10.2); Creatinine 1 0.72 mg/dL (0.52-1.04); EST GLOMERULAR FILTRATION RATE 105.7 ML/MIN; Potassium 3.3 mmol/L (3.5-5.1)
[2023-10-31 18:51] LABS: ANION GAP 11.3 MEQ/L (5-15)
[2023-10-31] MEDS ORDERED: Zofran 4 MG/2 ML VIAL ONE (18:56)
[2023-10-31] MEDS ORDERED: PROTONIX 40 MG IV IV ONE (18:56)
[2023-10-31] MEDS ORDERED: Hydromorphone 1 mg/ml Injection ONE (18:57)
[2023-10-31] MEDS ORDERED: Sodium Chloride 0.9% 1000 ML 1,000 ML ONE (18:57)
[2023-10-31] MEDS: Sodium Chloride 0.9% 1000 ML 1,000 ML IV STA (19:01)
[2023-10-31] MEDS: PROTONIX 40 MG IV IV ONE (19:02)
[2023-10-31] MEDS: Hydromorphone 1 mg/ml Injection IV ONE (19:02)
[2023-10-31] MEDS: Zofran 4 MG/2 ML VIAL IV ONE (19:02)
[2023-10-31 19:08] LABS: Appearance Clear (Clear); Bacteria None Seen /HPF (None Seen); Bilirubin Negative (Negative); Blood Negative (Negative); Epithelial Cells Rare /HPF (None Seen); Glucose, Urine Negative (Negative); Hyaline Casts NONE SEEN /LPF (0-2); Ketones Negative (Negative); Leukocyte Esterase Negative (Negative); Nitrite Negative (Negative); Ph >=9.0 (4.6-8.0); Protein,Urine Dip 100 (Negative); RBC 0-2 /HPF (0-5); Specific Gravity 1.015 (1.005-1.030); Urobilinogen 0.2 mg/dL (0.2); WBC 0-2 /HPF (0-5)
[2023-10-31 19:15] LABS: IFOB TEST RESULTS POSITIVE (NEGATIVE)
[2023-10-31 19:25] LABS: ADD URINE CULTURE? NO (NO)
[2023-10-31 19:31] LABS: INFLUENZA A NEGATIVE (NEGATIVE); INFLUENZA B NEGATIVE (NEGATIVE); RESPIRATORY SYNCTIAL VIRUS NEGATIVE (NEGATIVE); SARS-CoV-2 Xpert Express NEGATIVE (NEGATIVE)
[2023-10-31 19:51] LABS: 027 TOX PROD PRESUMPTIVE NEGATIVE (NEGATIVE); TOXIGENIC C. DIFF ORG NEGATIVE (NEGATIVE)
[2023-10-31] MEDS ORDERED: Klor Con ONE (19:52)
[2023-10-31] MEDS: Klor Con PO ONE (19:54)
[2023-10-31 20:12] VITALS: BP 124/58; PULSE 72; O2SAT 98
[2023-10-31] MEDS: Flagyl 500 MG PO ONE (20:32)
[2023-10-31] MEDS ORDERED: Flagyl 500 MG ONE (20:32)
--- NOTE | 2023-11-01 08:21 | XRAY ---
Indication: Abdominal pain. Diarrhea. Multiple contiguous axial images obtained through the abdomen and pelvis without contrast. Comparison: April 08, 2023 Lung bases remain clear. Heart not enlarged. Noncontrasted stomach and bowel loops appear nonobstructed again with intact mid abdomen small bowel anastomosis. New mild diffuse colonic diarrhea. Again previous cholecystectomy. No free fluid/air. Remaining liver, pancreas, spleen, adrenal glands, kidneys, ureters, bladder, uterus, and aorta are unremarkable for noncontrast exam. 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 Impression: 1. New colonic diarrhea. 2. Again chronic bony findings. 3. Remaining CT abdomen/pelvis without contrast exam is negative.
[2023-11-03 20:08] LABS: Adenovirus F40/41 Not Detected (Not Detected); Astrovirus Not Detected (Not Detected); Campylobacter Not Detected (Not Detected); Cryptosporidium Not Detected (Not Detected); Cyclospora cayetanensis Not Detected (Not Detected); Entamoeba histolytica Not Detected (Not Detected); Enteroaggregative E coli Not Detected (Not Detected); Enterpathogenic E coli Not Detected (Not Detected); Entertoxigenic E coli Not Detected (Not Detected); Giardia lamblia Not Detected (Not Detected); Norovirus GI/GII Not Detected (Not Detected); Plesiomonas shigelloides Not Detected (Not Detected); Rotavirus A Not Detected (Not Detected); Salmonella Not Detected (Not Detected); Shig-toxin-producing E coli Not Detected (Not Detected); Shigella/Enterinvasive E coli Not Detected (Not Detected); Vibrio Not Detected (Not Detected); Vibrio cholerae Not Detected (Not Detected); Yersinia enterocolitica Not Detected (Not Detected)
[2023-11-03 21:44] LABS: Sapovirus Not Detected (Not Detected)
== END 2023-10-31 20:52 | disposition home or self-care (01) ==
LOC: ED 18:03
DX: D64.9 Anemia, unspecified (principal); E87.6 Hypokalemia; K52.9 Noninfective gastroenteritis and colitis, unspecified; R10.11 Right upper quadrant pain; R11.0 Nausea; Z79.899 Other long term (current) drug therapy; Z72.0 Tobacco use
CPT/HCPCS: 0241U; 36000; 36415; 74176; 80053; 81001; 82077; 82150; 83605; 83690; 84484; 85025; 87493; 87507; 93005; 96360; 96374; 96375; 99284; G0328; 82274; J1170; J2405; A9270-GY

== ENCOUNTER 2024-01-29 14:21 | Emergency (ER) | payer OTHER ==
[2024-01-29 17:03] VITALS: TEMP 97.9
[2024-01-29 17:18] LABS: Absolute Neutrophil Ct (ANC) 7.06 x10^3/uL (1.56-6.13); BASOPHIL % 0.5 % (0.1-1.2); Basophil (Absolute #) 0.05 x10^3/uL (0.01-0.08); Eosinophil % 1.2 % (0.7-5.8); Eosinophil (Absolute #) 0.11 x10^3/uL (0.04-0.36); Hematocrit 35.6 % (34.1-44.9); Hemoglobin 11.2 g/dL (11.2-15.7); IMMATURE GRAN # 0.02 x10^3u/L (0.001-0.031); IMMATURE GRAN % 0.2 % (0.001-0.429); Lymphocyte (Absolute #) 1.43 x10^3/uL (1.18-3.74); Lymphocytes % 15.4 % (19.3-51.7); Mean Cell Volume 85.8 fL (79.4-94.8); Mean Corpuscular Hgb Concent. 31.5 g/dL (32.2-35.5); Monocytes % 6.5 % (4.7-12.5); Neutrophil % 76.2 % (34.0-71.1); Platelet Count 513 x10^3/uL (182-369); Red Blood Count 4.15 x10^6/uL (3.93-5.22); Red Cell Distribution Width 19.6 % (11.7-14.4); White Blood Count 9.3 x10^3/uL (3.98-10.04)
[2024-01-29 17:30] LABS: ALBUMIN 4.7 g/dL (3.5-5.0); ANION GAP 15.6 MEQ/L (5-15); BILIRUBIN,TOTAL 0.4 mg/dL (0.2-1.3); Calcium 9.8 mg/dL (8.4-10.2); Creatinine 1 1.43 mg/dL (0.52-1.04); EST GLOMERULAR FILTRATION RATE 46.4 ML/MIN; Potassium 3.7 mmol/L (3.5-5.1); Total Protein 7.9 g/dL (6.3-8.2)
[2024-01-29 17:48] LABS: Appearance Cloudy (Clear); Bacteria Many /HPF (None Seen); Bilirubin Negative (Negative); Blood Moderate (Negative); Epithelial Cells Moderate /HPF (None Seen); Glucose, Urine Negative (Negative); Ketones Trace (Negative); Leukocyte Esterase Small (Negative); Nitrite Positive (Negative); Ph 5.5 (4.6-8.0); Protein,Urine Dip Trace (Negative); RBC 0-2 /HPF (0-5); Specific Gravity >=1.030 (1.005-1.030)
[2024-01-29 17:49] LABS: ADD URINE CULTURE? YES (NO)
--- NOTE | 2024-01-29 18:56 | ERPHSYRPT ---
- History of Present Illness Time Seen by Provider: 01/29/24 18:47 Historian: patient Exam Limitations: no limitations Patient Subjective Stated Complaint: Abdominal pain Triage Nursing Assessment: Patient brought back to ED per w/c and triaged and remained in w/c. Patient A+O X3. Patient's skin pink, warm and dry. Patient complains of lower abdominal pain the goes into left flank 7/10 for one week that has gotten worse. Patient also complains of N/V and diarrhea. Abdomen soft and round with BS X 4. Physician History: 43-year-old female with history of chronic back pain presented to the ER with complaint of left flank pain for almost 1 week with progressive worsening. Patient reports moderate to severe sharp pain radiating to the left lower quadrant/periumbilical area with associated nausea and multiple episodes of nonprojectile, nonbilious vomiting without hematemesis. Patient also reports having loose watery stools with no hematochezia. Denies any fever or chills. Feeling weak fatigued tired and dehydrated. Does report increased urinary frequency and dysuria. Denies any history of kidney stones. Allergies/Adverse Reactions: No Known Drug Allergies Allergy (Verified 01/29/24 16:57) Home Medications: Ferrous Sulfate 325 mg [Feosol 325 mg] 325 mg PO DAILY 10/31/23 [History] Prazosin HCl 2 mg PO HS 10/31/23 [History] Risperidone 1 mg [Risperdal 1 MG] 1 mg PO DAILY 10/31/23 [History] Sertraline HCl [Zoloft] 100 mg PO DAILY 10/31/23 [History] Hx Tetanus, Diphtheria Vaccination/Date Given: Yes (2019) Hx Influenza Vaccination/Date Given: No Hx Pneumococcal Vaccination/Date Given: No Immunizations Up to Date: Yes Travel Risk - International Travel Have you traveled outside of the country in past 3 weeks: No - Emerging Infectious Disease Are you exhibiting symptoms associated with any current EIDs: No Symptoms: Abdominal Pain (Right upper quadrant), Diarrhea, Other (Please Comment) (Nausea and change in appetite) - Review of Systems Constitutional: Fatigue Eyes: No Symptoms Ears, Nose, & Throat: No Symptoms Respiratory: No Symptoms Cardiac: No Symptoms Abdominal/Gastrointestinal: Abdominal Pain, Nausea, Vomiting, Diarrhea Genitourinary Symptoms: Dysuria, Frequency Musculoskeletal: Arthralgias, Back Pain Skin: No Symptoms Neurological: No Symptoms Endocrine: No Symptoms Hematologic/Lymphatic: No Symptoms Immunological/Allergic: No Symptoms - Past Medical History Pertinent Past Medical History: Yes Neurological History: No Pertinent History ENT History: No Pertinent History Cardiac History: No Pertinent History Respiratory History: No Pertinent History Endocrine Medical History: No Pertinent History Musculoskeletal History: Fractures GI Medical History: No Pertinent History History: No Pertinent History Psycho-Social History: Anxiety, Depression Female Reproductive Disorders: No Pertinent History Other Medical History: ANXIETY/DEPRESSION - STATES GOING TO START ON MEDICATION. - Past Surgical History Past Surgical History: Yes Neuro Surgical History: No Pertinent History Cardiac: No Pertinent History Respiratory: No Pertinent History Gastrointestinal: Appendectomy, Cholecystectomy Genitourinary: No Pertinent History Musculoskeletal: No Pertinent History Female Surgical History: No Pertinent History Other Surgical History: titanium right ankle Significant Family History: no pertinent family hx - Female History Hx Last Menstrual Period: currently Hx Now: (unknown) - Social History Smoking Status: Current every day smoker How long have you smoked: 7year Exposure to second hand smoke: No Drug Use: marijuana Patient Lives Alone: No - Social Determinants of Health Will the patient participate in the screening: Yes Do you worry about a steady place to live?: Yes Do you have any problems with any of the following?: No known problems In the past 12 months,have you had to go without utilities?: No Transportation Issues: Yes Has anyone in your support network made you feel unsafe?: No Have you or anyone in your house had to go without enough: Yes - Nursing Vital Signs Nursing Vital Signs: Initial Vital Signs Temperature 97.9 F 01/29/24 16:58 Pulse Rate 69 01/29/24 16:58 Respiratory Rate 20 01/29/24 16:58 Blood Pressure 144/74 01/29/24 16:58 O2 Sat by Pulse Oximetry 100 01/29/24 16:58 Pain Scale Pain Intensity 10 - Physical Exam General Appearance: no apparent distress, alert Eye Exam: PERRL/EOMI Ears, Nose, Throat Exam: normal ENT inspection Neck Exam: normal inspection, full range of motion Respiratory Exam: normal breath sounds, lungs clear Cardiovascular Exam: regular rate/rhythm, normal heart sounds Gastrointestinal/Abdomen Exam: soft, normal bowel sounds, tenderness Back Exam: normal inspection, normal range of motion Extremity Exam: normal range of motion Neurologic Exam: alert, oriented x 3, cooperative Skin Exam: normal color SpO2 Interpretation: normal SpO2: 100 O2 Delivery: Room Air Ordered Tests: Active Orders 24 hr Category Date Time Status ABDOMEN AND PELVIS W/0 CONTRAS [CT] Stat Exams 01/29/24 20:40 Taken AMYLASE Stat Lab 01/29/24 17:15 Completed CBC W DIFF Stat Lab 01/29/24 17:15 Completed CMP Stat Lab 01/29/24 17:15 Completed CULTURE,URINE Stat Lab 01/29/24 17:10 Received HCG QUALITATIVE, URINE Stat Lab 01/29/24 Completed LIPASE Stat Lab 01/29/24 17:15 Completed UA W/RFX UR CULTURE Stat Lab 01/29/24 17:10 Completed Medication Summary Generic Name Dose Route Start Last Admin Trade Name Freq PRN Reason Stop Dose Admin Hydrocodone Bitart/Acetaminophen 2 tab 01/29/24 22:20 Hydrocodone/Apap 5/325 1 Tab Tablet PO 01/29/24 22:21 SENT HOME W/ PATIENT ONE Discontinued Medications Generic Name Dose Route Start Last Admin Trade Name Freq PRN Reason Stop Dose Admin Sodium Chloride 1,000 mls @ 999 mls/hr 01/29/24 18:53 01/29/24 21:14 Sodium Chloride 0.9% 1000 Ml IV 01/29/24 19:53 Infused .Q1H1M STA Infusion Ceftriaxone Sodium 2 gm in 100 mls @ 200 mls/hr 01/29/24 18:54 01/29/24 19:55 Rocephin 2 Gm/100 Ml Nacl IV 01/29/24 19:23 Infused STAT ONE Infusion Sodium Chloride Confirm 01/29/24 19:15 Sodium Chloride 0.9% 1000 Ml Administered 01/29/24 19:16 Dose 1,000 mls @ ud .ROUTE .STK-MED ONE Ceftriaxone Sodium Confirm 01/29/24 19:15 Rocephin 2 Gm/100 Ml Nacl Administered 01/29/24 19:16 Dose 2 gm in 100 mls @ ud IV .STK-MED ONE Morphine Sulfate 4 mg 01/29/24 18:53 01/29/24 19:21 Morphine Sulfate 4 Mg/Ml Injection IV 01/29/24 18:54 4 mg STAT ONE Administration Morphine Sulfate Confirm 01/29/24 19:14 Morphine Sulfate 4 Mg/Ml Injection Administered 01/29/24 19:15 Dose 4 mg .ROUTE .STK-MED ONE Ondansetron HCl 4 mg 01/29/24 18:53 01/29/24 19:20 Ondansetron Hcl 4 Mg/2 Ml Vial IV 01/29/24 18:54 4 mg STAT ONE Administration Ondansetron HCl Confirm 01/29/24 19:14 Ondansetron Hcl 4 Mg/2 Ml Vial Administered 01/29/24 19:15 Dose 4 mg .ROUTE .STK-MED ONE Lab/Rad Data: Laboratory Result Diagrams 01/29/24 17:15 01/29/24 17:15 Laboratory Results 01/29/24 01/29/24 01/29/24 Range/Units Unknown 17:15 17:15 WBC 9.3 (3.98-10.04) x10^3/uL RBC 4.15 (3.93-5.22) x10^6/uL Hgb 11.2 (11.2-15.7) g/dL Hct 35.6 (34.1-44.9) % MCV 85.8 (79.4-94.8) fL MCH 27.0 (25.6-32.2) pg MCHC 31.5 L (32.2-35.5) g/dL RDW 19.6 H (11.7-14.4) % Plt Count 513 H (182-369) x10^3/uL MPV 8.0 L (9.4-12.3) fL Gran % 76.2 H (34.0-71.1) % Immature Gran % (Auto) 0.2 (0.001-0.429) % Nucleat RBC Rel Count 0.0 (0.00-0.2) % Eos # (Auto) 0.11 (0.04-0.36) x10^3/uL Immature Gran # (Auto) 0.02 (0.001-0.031) x10^3u/L Absolute Lymphs (auto) 1.43 (1.18-3.74) x10^3/uL Absolute Monos (auto) 0.60 (0.24-0.86) x10^3/uL Absolute Nucleated RBC 0.00 (0.00-0.012) x10^3u/L Lymphocytes % 15.4 L (19.3-51.7) % Monocytes % 6.5 (4.7-12.5) % Eosinophils % 1.2 (0.7-5.8) % Basophils % 0.5 (0.1-1.2) % Absolute Granulocytes 7.06 H (1.56-6.13) x10^3/uL Basophils # 0.05 (0.01-0.08) x10^3/uL Sodium 140 (135-145) mmol/L Potassium 3.7 (3.5-5.1) mmol/L Chloride 100 (98-107) mmol/L Carbon Dioxide 28 (22-30) mmol/L Anion Gap 15.6 H (5-15) MEQ/L BUN 24 H (7-17) mg/dL Creatinine 1.43 H (0.52-1.04) mg/dL Estimated GFR 46.4 ML/MIN Glucose 110 H (74-106) mg/dL Calcium 9.8 (8.4-10.2) mg/dL Total Bilirubin 0.40 (0.2-1.3) mg/dL AST 28 (14-36) U/L ALT 23 (0-35) U/L Alkaline Phosphatase 64 (38-126) U/L Serum Total Protein 7.9 (6.3-8.2) g/dL Albumin 4.7 (3.5-5.0) g/dL Amylase 98 (30-110) U/L Lipase 102 (23-300) U/L Urine Color (Yellow) Urine Appearance (Clear) Urine pH (4.6-8.0) Ur Specific [place] (1.005-1.030) Urine Protein (Negative) Urine Glucose (UA) (Negative) mg/dL Urine Ketones (Negative) Urine Blood (Negative) Urine Nitrite (Negative) Urine Bilirubin (Negative) Urine Urobilinogen (0.2) mg/dL Ur Leukocyte Esterase (Negative) U Hyaline Cast (Auto) (0-2) /LPF Urine Microscopic RBC (0-5) /HPF Urine Microscopic WBC (0-5) /HPF Ur Epithelial Cells (None Seen) /HPF Urine Bacteria (None Seen) /HPF Urine Culture Reflexed (NO) Urine HCG, Qual NEGATIVE (NEGATIVE) 01/29/24 Range/Units 17:10 WBC (3.98-10.04) x10^3/uL RBC (3.93-5.22) x10^6/uL Hgb (11.2-15.7) g/dL Hct (34.1-44.9) % MCV (79.4-94.8) fL MCH (25.6-32.2) pg MCHC (32.2-35.5) g/dL RDW (11.7-14.4) % Plt Count (182-369) x10^3/uL MPV (9.4-12.3) fL Gran % (34.0-71.1) % Immature Gran % (Auto) (0.001-0.429) % Nucleat RBC Rel Count (0.00-0.2) % Eos # (Auto) (0.04-0.36) x10^3/uL Immature Gran # (Auto) (0.001-0.031) x10^3u/L Absolute Lymphs (auto) (1.18-3.74) x10^3/uL Absolute Monos (auto) (0.24-0.86) x10^3/uL Absolute Nucleated RBC (0.00-0.012) x10^3u/L Lymphocytes % (19.3-51.7) % Monocytes % (4.7-12.5) % Eosinophils % (0.7-5.8) % Basophils % (0.1-1.2) % Absolute Granulocytes (1.56-6.13) x10^3/uL Basophils # (0.01-0.08) x10^3/uL Sodium (135-145) mmol/L Potassium (3.5-5.1) mmol/L Chloride (98-107) mmol/L Carbon Dioxide (22-30) mmol/L Anion Gap (5-15) MEQ/L BUN (7-17) mg/dL Creatinine (0.52-1.04) mg/dL Estimated GFR ML/MIN Glucose (74-106) mg/dL Calcium (8.4-10.2) mg/dL Total Bilirubin (0.2-1.3) mg/dL AST (14-36) U/L ALT (0-35) U/L Alkaline Phosphatase (38-126) U/L Serum Total Protein (6.3-8.2) g/dL Albumin (3.5-5.0) g/dL Amylase (30-110) U/L Lipase (23-300) U/L Urine Color Yellow (Yellow) Urine Appearance Cloudy A (Clear) Urine pH 5.5 (4.6-8.0) Ur Specific [place] >=1.030 A (1.005-1.030) Urine Protein Trace A (Negative) Urine Glucose (UA) Negative (Negative) mg/dL Urine Ketones Trace A (Negative) Urine Blood Moderate A (Negative) Urine Nitrite Positive A (Negative) Urine Bilirubin Negative (Negative) Urine Urobilinogen 1.0 A (0.2) mg/dL Ur Leukocyte Esterase Small A (Negative) U Hyaline Cast (Auto) 11-20 (0-2) /LPF Urine Microscopic RBC 0-2 (0-5) /HPF Urine Microscopic WBC 11-20 A (0-5) /HPF Ur Epithelial Cells Moderate A (None Seen) /HPF Urine Bacteria Many A (None Seen) /HPF Urine Culture Reflexed YES (NO) Urine HCG, Qual (NEGATIVE) - Progress Progress: improved, re-examined Progress Note: 01/29/24 22:11 43-year-old is evaluated in the ER for flank pain along with UTI symptoms. Patient is given fluids and symptomatic treatment, on reevaluation she is feeling better. Workup showed normal white count, mild RICARDA with a creatinine of 1.4, does have UTI and given a dose of Rocephin. Obtain CT abdomen pelvis without contrast which is negative for any acute intra-abdominal pelvic findings. Patient has multiple abdominal surgeries done in the past and possibly have adhesions causing pain. Will continue with antibiotics to go home. Discussed signs symptoms of worsening needing return to ER which she seems understanding. Counseled pt/family regarding: lab results, diagnosis, need for follow-up, rad results Medical Desision Making - Diagnostic Testing Diagnostic test were ordered, analyzed, and reviewed by me: Yes Radiological Interpretation: Reviewed by me - Risk of complications The pt has a mod risk of morbidity or mortality based on: Need for prescription drug management - Departure Departure Disposition: Home Clinical Impression: UTI (urinary tract infection), Dehydration, RICARDA (acute kidney injury), Flank pain Condition: Stable Critical Care Time: No Referrals: LONG BRAVO MD [Primary Care Provider] - Follow up with PCP 1 day Instructions: Acute kidney injury, Urinary Tract Infection, Adult ED Additional Instructions: Drink plenty of fluids to keep yourself well-hydrated. Take Tylenol as needed. Follow-up with primary care for reevaluation. Return to ER for any worsening pain, intractable nausea vomiting or if develop fever chills etc. Prescriptions: Cefpodoxime Proxetil 200 mg [Vantin 200 mg] 200 mg PO BID 7 Days #14 tablet Ondansetron ODT 4 MG [Zofran Odt 4 mg] 1 ea PO QIDPRN PRN #7 tablet PRN Reason: n/v
[2024-01-29] MEDS ORDERED: MORPHINE SULFATE 4 MG INJ ONE (19:14)
[2024-01-29] MEDS ORDERED: Zofran 4 MG/2 ML VIAL ONE (19:14)
[2024-01-29] MEDS ORDERED: Sodium Chloride 0.9% 1000 ML 1,000 ML ONE (19:15)
[2024-01-29] MEDS ORDERED: ROCEPHIN 2 GM/100 ML NACL 2 GM/100 ML IVPB IV ONE (19:15)
[2024-01-29] MEDS: Sodium Chloride 0.9% 1000 ML 1,000 ML IV STA (19:18)
[2024-01-29] MEDS: Zofran 4 MG/2 ML VIAL IV ONE (19:20)
[2024-01-29] MEDS: MORPHINE SULFATE 4 MG INJ IV ONE (19:21)
[2024-01-29] MEDS: ROCEPHIN 2 GM/100 ML NACL 2 GM/100 ML IVPB IV ONE (19:22)
[2024-01-29 20:02] LABS: HCG URINE TEST NEGATIVE (NEGATIVE)
[2024-01-29 20:37] VITALS: BP 138/76; PULSE 66; RESP 18
[2024-01-29 22:18] VITALS: O2SAT 100
[2024-01-29] MEDS ORDERED: NORCO 5/325 MG ONE (22:26)
[2024-01-29] MEDS: NORCO 5/325 MG PO ONE (22:29)
--- NOTE | 2024-01-30 08:40 | XRAY ---
Indication: Left flank pain. Pyelonephritis. Multiple contiguous axial images obtained through the abdomen and pelvis without contrast using renal stone protocol. Comparison: October 31, 2023. Lung bases remain clear. Heart not enlarged. No renal calculus or evidence for obstructive uropathy in either system. Noncontrasted stomach and bowel loops appear nonobstructed with intact mid abdomen small bowel anastomosis. Again cholecystectomy. No free fluid/air. Remaining liver, pancreas, spleen, adrenal glands, kidneys, ureters, bladder, uterus, and aorta are unremarkable for noncontrast exam. 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 Impression: 1. Continue negative renal calculus or evidence for obstructive uropathy. 2. Again incidental chronic bony findings. 3. Remaining CT abdomen/pelvis without contrast exam continues to be negative.
== END 2024-01-29 22:32 | disposition home or self-care (01) ==
LOC: ED 14:21
DX: N39.0 Urinary tract infection, site not specified (principal); E86.0 Dehydration; N17.9 Acute kidney failure, unspecified; R10.9 Unspecified abdominal pain; R11.2 Nausea with vomiting, unspecified; R19.7 Diarrhea, unspecified; Z79.899 Other long term (current) drug therapy; Z72.0 Tobacco use; Z59.10 Inadequate housing, unspecified; Z59.82 Transportation insecurity; Z59.41 Food insecurity
CPT/HCPCS: 36000; 36415; 74176; 80053; 81001; 81025; 82150; 83690; 85025; 87077; 87086; 87186; 96360; 96365; 96374; 96375; 99284; J0696; J2270; J2405; A9270-GY

== ENCOUNTER 2024-03-26 06:10 | Day surgery (SDC) | payer OTHER ==
[2024-03-26] MEDS ORDERED: Lactated Ringers 1,000 ML IV ONE (06:47)
[2024-03-26 06:57] LABS: HCG URINE TEST NEGATIVE (NEGATIVE)
[2024-03-26] MEDS: Lactated Ringers 1,000 ML IV SCH (07:00)
[2024-03-26] MEDS ORDERED: Xylocaine-Mpf 2% 5 Ml Vial ONE (07:59)
[2024-03-26] MEDS ORDERED: DIPRIVAN 200 MG/20 ML IV ONE (07:59)
[2024-03-26] MEDS ORDERED: Versed 2 MG/2 ML Injection ONE (08:00)
[2024-03-26 08:47] VITALS: RESP 16; TEMP 97.2
[2024-03-26 09:00] VITALS: BP 116/66; PULSE 78; O2SAT 99
--- NOTE | 2024-03-29 09:28 | OP ---
SURGERY DATE/TIME: 03/26/2024 [id number] PREOPERATIVE DIAGNOSIS: Epigastric pain. POSTOPERATIVE DIAGNOSES: 1) Hiatal hernia. 2) Gastritis. OPERATIVE PROCEDURE: Esophagogastroduodenoscopy with cold forceps biopsy of the gastric antrum to rule out Helicobacter pylori. SURGEON: Ryley Goel MD. ANESTHESIA: Medications were given by the Anesthesia Department. HISTORY: The patient is a 43-year-old white female who presents now with epigastric pain. She reports it has been going on for months. The patient has problems with her ankle where she has had metal replacement in it, but the patient takes meloxicam on a regular basis, as well as [id number] ibuprofen. It is also noted the patient is using THC on a regular basis. The patient was described risks of the procedure including the risk of perforation, phlebitis, untoward reaction to medication, bleeding, and missed lesions. Patient verbalized her understanding and desired to have the procedure performed. DESCRIPTION OF PROCEDURE: Patient was given medication by the Anesthesia Department. She had continuous pulse oximetry, ECG monitoring, and intermittent blood pressure monitoring during the examination. She was placed in the left lateral decubitus position. A bite block was placed. A flexible Olympus gastroscope was used to intubate the oropharynx. A view of the larynx was obtained and appeared to be normal. The scope was easily introduced in the esophagus which appeared normal to its lower portion where there was appearance of a hiatal hernia. The scope was in the stomach where normal gastric rugal folds were seen and these distended nicely with insufflation of air. The scope was passed along the greater curvature of the stomach to the antrum. The pylorus was encountered and intubated. The duodenum was inspected and found to be normal. The scope was withdrawn toward the stomach. Again, retroflexed view was obtained of the lesser curvature, fundus, and cardia regions of the stomach, which again was apparent the hiatal hernia. The scope was redirected toward the gastric antrum where biopsies were obtained to rule out the presence of Helicobacter pylori-type organisms. There was a generalized feeling of erythema but no erosions or ulcerations were present. The scope was removed from the patient who tolerated the procedure well and was sent back to outpatient recovery in good condition.
== END 2024-03-26 09:05 | disposition home or self-care (01) ==
LOC: SDC 06:10
PROVIDERS: ATTEND Family Medicine
DX: K29.70 Gastritis, unspecified, without bleeding (principal); K44.9 Diaphragmatic hernia without obstruction or gangrene; R10.13 Epigastric pain
CPT/HCPCS: 81025; J2250; J2704